=== PATIENT | male | born 1960 | race Caucasian/White ===

== ENCOUNTER → 2023-04-23 13:23 | Outpatient (REF) | payer MEDICARE, SELFPAY | LOC: MRI 3T 13:23 | PROVIDERS: ATTENDING PHYSICIAN Family Medicine; REFERRING PHYSICIAN Specialist | DX: R41.82 Altered mental status, unspecified (principal) | CPT/HCPCS: 70553; A9575 ==

== ENCOUNTER 2023-07-01 22:27 | Inpatient (IN) | payer MEDICARE, SELFPAY ==
[2023-07-01 17:06] VITALS: BP 156/94; BMI 31.0
--- NOTE | 2023-07-01 17:41 | EDRN ---
Crisis evaluated pt and pt denied SI. Pt does not need 1:1.
[2023-07-01 18:10] VITALS: BP 145/100
[2023-07-01] MEDS: DELTASONE 50 MG PO (19:20)
[2023-07-01] MEDS: DUONEB 3 ML INH ×3 (19:20→23:48)
[2023-07-01 20:01] VITALS: BP 155/90
[2023-07-01 20:20] LABS: % Basophils 0.6 % (0-2); % Eosinophils 1.1 % (0-6); % Immature Granulocytes 0.8 % (0-0.5); % Lymphocytes 18.7 % (20.5-51.1); % Monocytes 9.9 % (1.7-9.3); % Neutrophils 68.9 % (42.2-75.2); Absolute Basophils 0.1 10^3/uL (0-0.2); Absolute Eosinophils 0.1 10^3/uL (0-0.7); Absolute Immature Granulocytes 0.1 10^3/uL (0-0.05); Absolute Lymphocytes 1.5 10^3/uL (1.2-3.4); Absolute Monocytes 0.8 10^3/uL (0.1-0.6); Absolute Neutrophils 5.7 10^3/uL (1.4-6.5); Hematocrit 38.8 % (39.0-52.0); Hemoglobin 13.6 g/dL (13.0-18.0); Mean Corp Hgb Conc. 35.1 g/dL (33.0-37.0); Mean Corpuscular Hgb 29.5 pg (27.0-31.0); Mean Corpuscular Volume 84.2 fL (80.0-94.0); Mean Platelet Volume 9.3 fL (7.4-10.4); Nucleated Red Blood Cells % 0 % (-); Platelet Count 227 10^3/uL (130-400); Red Blood Cell Count 4.61 10^6/uL (4.70-6.10); Red Cell Dist. Width 13.8 % (11.5-14.5); White Blood Cell Count 8.3 10^3/uL (4.8-10.8)
--- NOTE | 2023-07-01 20:24 | ED.GENMED ---
History of Present Illness
General
Chief Complaint: Breathing Problem
Source: patient and spouse
Exam Limitations: none
Time Seen by Provider: 07/01/23 19:08
Nursing documentation reviewed up to this point in time: agreed with
Travel History
Have you had any contact with someone who has COVID-19?: No
Do you have any symptoms of coronavirus? Fever > 100 degrees, chills, cough, shortness of breath, sore throat, loss of taste or smell, muscle aches, or headache?: No
History of Present Illness
History of Present Illness:
62-year-old male with a past medical history of asthma, DERIAN on CPAP, hypertension, hyperlipidemia, anxiety/bipolar who presents to the emergency department for evaluation of shortness of breath. Patient reports that he has had gradual onset of
symptoms over the past 3 to 4 days consistent with prior asthma exacerbations; last night around 3 AM woke up with acutely worsening symptoms. Was using his albuterol very frequently throughout the day today but symptoms were continuing and
worsening which prompted trip to the emergency room. He has had associated nonproductive cough and significant wheezing. He says he has tightness in his chest but no chest pain. Has not had any swelling his legs. No GI symptoms. Denies any
other complaints. He reports identical prior asthma exacerbations. He says that pollen/allergies are common trigger.
Past History
Past History
ED Past Medical History: HTN, Hypercholesterolemia and Psychiatric (Bipolar disorder, ADHD, depression)
ED Past Surgical History: Orthopedic
Social History
Tobacco: Smoker (Patient states he smokes one or 2 cigarettes a week)
Alcohol: Occasional
Drug: None
Personal:
Living: with family
Employment: Employed
Family History
Family History: Other (Noncontributory)
Review of Systems
Review of Systems
All Other Systems: ROS reviewed and negative except as documented in HPI and ROS
Constitutional: Denies fever or chills
EENT: Denies sore throat or runny nose
Respiratory: Reports cough and trouble breathing
Cardiac: Denies chest pain, diaphoresis or palpitations
ABD/GI: Denies abdominal pain, nausea or vomiting
: Denies flank pain
Musculoskeletal: Denies neck pain or back pain
Neurological: Denies headache, weakness or numbness
Phy Exam
Physical Exam
Physical Exam:
General: Awake, alert; no acute distress
Head: Normocephalic, atraumatic
Eyes: Conjunctiva normal
Throat: Airway intact, handling secretions
Neck: Trachea midline, no JVD
Lungs: Patient is sitting upright, tachypneic; pulse ox mid 90s on room air; diffuse bilateral wheezing with prolonged expiration and diminished air movement; speaking in somewhat short sentences (3 to 4 words)
Heart: Regular rate and rhythm, no murmurs, gallops, or rubs
Abd: Soft, non distended, nontender
Neuro: Cranial nerves grossly intact, speech fluid
Skin: no rash
Extremities: No edema in extremities, warm and well-perfused
Scores
Heart Failure Risk
Heart Failure Risk Score: Not Applicable
Heart Score for Chest Pain Patients
STEMI patient?: Not applicable
Withdrawal Assessment of Alcohol
Withdrawal Assessment Completed?: Not applicable
Course
Orders/Labs/Results
Orders:
Orders
07/01/23 17:11
1:1 Observation - Suicide/ Violent Behavior As Directed
07/01/23 17:14
Crisis Consult Urgent
Reason for Consult: pt reports he is suicidal, plan to hang or shoot self
07/01/23 18:02
EKG [Electrocardiogram (*1)] Urgent
Reason for Study: Shortness of Breath
EKG- Treatment ONCE
07/01/23 19:14
Ipratropium/Albuterol Sulfate [Duoneb] 3 ml INH R NOW STA
Prednisone [Deltasone] 50 mg PO NOW STA
CR Chest - 2 Views Urgent
Comment:
Reason For Exam: sob
07/01/23 19:48
Peak Flow Rate [RESP] Urgent
Quantity: 1
07/01/23 20:08
COVID-19 Antigen Urgent
Source: Nasal Swab
Complete Blood Count/With Diff Urgent
Comprehensive Metabolic Panel Urgent
Influenza A+B Rapid Molecular Urgent
BRAULIO Source: Nasal Swab
Specimen Description:
07/01/23 20:23
Ipratropium/Albuterol Sulfate [Duoneb] 3 ml INH R NOW ONE
Abnormal Lab Results
07/01/23
20:08
RBC 4.61 L 10^6/uL
(4.70-6.10)
Hct 38.8 L %
(39.0-52.0)
Abs Immat Gran (auto) 0.1 H 10^3/uL
(0-0.05)
Absolute Monos (auto) 0.8 H 10^3/uL
(0.1-0.6)
Immature Gran % 0.8 H %
(0-0.5)
Lymphocytes % 18.7 L %
(20.5-51.1)
Monocytes % 9.9 H %
(1.7-9.3)
Sodium 133 L mmol/L
(135-145)
07/01/23 20:08
07/01/23 20:08
Vital Signs
Initial and Last Documented VS:
Initial Vital Signs
Temp Pulse Resp BP Pulse Ox
36.8 C 90 16 156/94 95
07/01/23 17:06 07/01/23 17:06 07/01/23 17:06 07/01/23 17:06 07/01/23 17:06
Last Documented Vital Signs
Temp Pulse Resp BP Pulse Ox
36.8 C 85 13 155/90 96
07/01/23 17:06 07/01/23 20:15 07/01/23 20:15 07/01/23 20:01 07/01/23 20:15
MDM/Problems Addressed
Differential Diagnosis Includes:
Acute asthma exacerbation, pneumonia, CHF, pneumothorax
MDM/Problems Addressed:
62-year-old male presents for evaluation of worsening shortness of breath over the past few days associated cough and chest tightness, wheezing�consistent with prior asthma exacerbations. Not improving with home albuterol. Hypertensive on arrival
with tachypnea but no hypoxia. Exam as above. Plan to place an IV send basic labs including a CBC and a CMP. Will dose with steroid and treat with DuoNeb. Will check a chest x-ray and EKG. Will monitor closely reassess after the above.
Clinical reassessment after DuoNeb and steroid patient is feeling much better and still has significant wheezing and prolonged expiration on lung auscultation. He is still sitting upright with mild tachypnea. Will check peak flow. Repeat DuoNeb.
Awaiting labs and chest x-ray.
Chest x-ray shows mild hyperinflation no pneumonia or pneumothorax. Initial labs reviewed and no clinically significant abnormalities.
After additional DuoNeb patient moving better air but still significant wheezing, still with mild tachypnea. Peak flow less than 50% expected based on age. Will plan admit for continued treatment of acute asthma exacerbation. Case discussed with
hospitalist for admission.
Chronic conditions affecting care:
Asthma
Acute Exacerbation and/or Progression of Chronic Illness:
Acutely hypertensive with no signs of hypertensive emergency�no indication for emergent antihypertensive therapy at present
*Radiology
Radiology exam reviewed: preliminary read by ED provider and radiology read reviewed
*Pulse Oximetry
Patient hypoxic: no
*EKG
Interpreted by ED Provider?: Yes
Heart Rate: 86
Rate: normal
Rhythm: sinus
[place]: normal axis
Interval: normal interval
QRS Pattern: normal QRS
Ischemia: non-specific ST changes
*Critical Care Note
Total Time (30-74mins, 75-104mins- exclusive of procedures): Not Applicable
Data Reviewed
Review of Other/Old Records Reveals: Labs and Records
Source: patient and records
Patient Management
Discussion with other providers: Hospitalist (Discussed with hospitalist for admission)
Escalation/DeEscalation of care consider admission/obs:
Admission indicated
ED Attending Note
-
Portions of this chart may have been created with voice recognition software.� Occasional wrong word or��sound alike� substitutions may have occurred due to the inherent limitations of voice recognition software.
Discharge Plan
Departure
Patient Disposition: Admit
Date of Disposition: 07/01/23
Time of Disposition: 21:26
Admit to doctor: Julian
Presentation/result/management discussed w/ accepting MD/DO: Hospitalist
Discharge Problem:
Acute asthma exacerbation
Prescriptions:
No Action
omeprazole 40 MG capsule,delayed release(DR/EC)
40 mg PO DAILY
venlafaxine 75 MG capsule,extended release 24hr
150 mg PO DAILY
olanzapine 15 MG tablet,disintegrating
15 mg PO QPM
albuterol sulfate 18 GM HFA aerosol inhaler
2 puff inhalation R Q4HPRN PRN (Reason: sob/wheezing) Qty: 0
amlodipine 5 MG tablet
5 mg PO DAILY Qty: 1 0RF
hydrochlorothiazide 25 MG tablet
25 mg PO DAILY Qty: 1 0RF
Rx Instructions:
Hold if systolic blood pressure <130
clonazepam 1 MG tablet
1 mg PO DAILY@1300
Patient Comments:
07/01/2023: last filled 06/19/23, 90 tabs for 30 days from [facility]
Epidiolex 1 UNIT solution
1 unit inhalation PRN PRN (Reason: Anxiety)
carvedilol 6.25 mg tablet
6.25 mg PO BID
venlafaxine 75 mg capsule,extended release 24hr
75 mg PO BID@1300,1900
atorvastatin 20 mg tablet
20 mg PO QPM
lamotrigine 200 mg tablet
200 mg PO BID
donepezil 5 mg tablet
5 mg PO DAILY
polyethylene glycol 3350 [Miralax] 17 gram Powder In Packet
11.38 g PO DAILY
Patient Comments:
07/01/2023: '2 teaspoons'
Benefiber (guar gum) Packet
0.66 tbsp PO DAILY
Patient Comments:
07/01/2023: '2 teaspoons'
montelukast 10 mg tablet
10 mg PO QPM
fluticasone propion-salmeterol 100-50 mcg/dose blister with device
1 inh INHALATION R BID
bupropion HCl 200 mg tablet sustained-release 12 hr
200 mg PO BID
aspirin 325 MG tablet
325 mg PO QPM
clonazepam 1 MG tablet
2 mg PO DAILY@1900
Patient Comments:
07/01/2023: last filled 06/19/23, 90 tabs for 30 days from [facility]
lisinopril 40 MG tablet
40 mg PO QPM
Rx Instructions:
Hold if systolic blood pressure <130
Referrals:
Anthony Suarez MD [Family Provider] -
Interventions
Interventions:
*Risk Screen - Suicide Last Done: 07/01/23 17:06
*Neglect/Abuse Screening Last Done: 07/01/23 17:06
ED- Fall Risk Assessment Last Done: 07/01/23 19:24
*ED COVID-19 Vaccine History Last Done: 07/01/23 17:06
ED- Cardiac Assessment Last Done: 07/01/23 19:24
ED- Pulmonary Assessment Last Done: 07/01/23 19:24
Discharge Date and Time
Print Language: FAROESE
[2023-07-01 20:33] LABS: ALT (SGPT) 26 U/L (0-50); AST (SGOT) 28 U/L (17-59); Albumin 4.6 g/dl (3.5-5.0); Alkaline Phosphatase 106 U/L (38-126); Blood Urea Nitrogen 12 mg/dl (9-20); Calcium 9.6 mg/dl (8.4-10.2); Carbon Dioxide 25 mmol/L (22-30); Chloride 101 mmol/L (98-107); Estimated Creatinine Clearance 117 ml/min; Glucose 94 mg/dl (70-99); Potassium 3.6 mmol/L (3.5-5.1); Sodium 133 mmol/L (135-145); Total Bilirubin 0.4 mg/dl (0.2-1.3); Total Protein 7.5 g/dl (6.3-8.2); eGFR > 60.00
[2023-07-01 20:41] LABS: COVID-19 Antigen Negative (Negative)
[2023-07-01 21:00] VITALS: BP 112/87
--- NOTE | 2023-07-01 21:31 | HPS.HSE ---
Family Physician
-
Family Physician: Anthony Suarez
Chief Complaint
-
shortness of breath
History of Present Illness
Mr. Karan Cortes is a 62 yo man with hx essential HTN, HLD, asthma, DERIAN on CPAP, obesity, anxiety/bipolar, former tobacco use/current marijuana use, LBBB presents to the ER with shortness of breath.
Patient states symptoms started yesterday evening, similar to prior exacerbations. + chest tightness and shortness of breath. He always has some degree of cough and mucus production, currently not worse than normal. No fevers. Received duonebs and
prednisone in the ER and currently stating he is feeling much better.
No nausea/vomiting. No diarrhea. No abdominal pain. No LE swelling. No rash.
Medical History
Past Medical History
Past Medical History: Reports Other ( HTN, HLD, asthma, DERIAN on CPAP, obesity, anxiety/bipolar, former tobacco use, LBBB)
Past Surgical History: Reports Other
Social History
Tobacco: Smoker (marijuana currently; former tobacco )
Alcohol: Occasional
Family History
Family History: Not pertinent
Allergies / Home Medications
Allergies reflects when Allergies were last updated in [facility].
Home Medications with original date entered in [facility]
Allergy/Medication List:
Allergies
Allergy/AdvReac Type Severity Reaction Status Date / Time
No Known Drug Allergies Allergy - Verified 07/01/23 17:05
environmental Allergy sinus Uncoded 07/01/23 17:05
congestion,
'lungs
swell'asthma
Home Medications
omeprazole 40 mg capsule,delayed release 40 mg PO DAILY 05/31/10
albuterol sulfate 90 mcg/actuation aerosol inhaler 2 puff inhalation R Q4HPRN PRN sob/wheezing ##0 03/22/19
olanzapine 15 mg disintegrating tablet 15 mg PO QPM 03/22/19
venlafaxine 75 mg capsule,extended release 24 hr 150 mg PO DAILY 03/22/19
amlodipine 5 mg tablet 5 mg PO DAILY ##1 04/08/19
hydrochlorothiazide 25 mg tablet 25 mg PO DAILY ##1 04/08/19
cannabidiol 100 mg/mL oral solution (Epidiolex) 1 unit inhalation PRN PRN Anxiety 09/06/20
clonazepam 1 mg tablet 1 mg PO DAILY@1300 09/06/20
aspirin 325 mg tablet 325 mg PO QPM 07/01/23
atorvastatin 20 mg tablet 20 mg PO QPM 07/01/23
bupropion HCl 200 mg tablet,12 hr sustained-release 200 mg PO BID 07/01/23
carvedilol 6.25 mg tablet 6.25 mg PO BID 07/01/23
clonazepam 1 mg tablet 2 mg PO DAILY@1900 07/01/23
donepezil 5 mg tablet 5 mg PO DAILY 07/01/23
fluticasone 100 mcg-salmeterol 50 mcg/dose blistr powdr for inhalation 1 inh inhalation R BID 07/01/23
guar gum 0.66 tbsp PO DAILY 07/01/23
lamotrigine 200 mg tablet 200 mg PO BID 07/01/23
lisinopril 40 mg tablet 40 mg PO QPM 07/01/23
montelukast 10 mg tablet 10 mg PO QPM 07/01/23
polyethylene glycol 3350 17 gram oral powder packet (Miralax) 11.38 g PO DAILY 07/01/23
venlafaxine 75 mg capsule,extended release 24 hr 75 mg PO BID@1300,1900 07/01/23
Review of Systems
-
History Source: Patient
A 12 point ROS was completed and negative except as noted: Yes
Physical Exam
Vital Signs
Vital Signs
Temp Pulse Resp BP Pulse Ox
98.2 F 81 15 112/87 95
07/01/23 17:06 07/01/23 21:15 07/01/23 21:15 07/01/23 21:00 07/01/23 21:15
Physical Exam
General: No Apparent Distress and Conversant
HEENT: PERRLA
Respiratory: Wheezes
Cardiac: S1/S2 and Regular Rhythm
GI: Soft and Non Tender
Musculoskeletal: No Edema
Skin: Warm and Dry; No Rash
Neuro: AO x 3
Psych: Calm
Laboratory Results
-
07/01/23 20:08
07/01/23 20:08
Laboratory Results
Total Bilirubin 0.4 mg/dl (0.2-1.3) 07/01/23 20:08
AST 28 U/L (17-59) 07/01/23 20:08
ALT 26 U/L (0-50) 07/01/23 20:08
Alkaline Phosphatase 106 U/L (38-126) 07/01/23 20:08
Data Reviewed
-
Diagnostic Radiology: Report Reviewed by me
Lab Data: Labs Reviewed by me
Impression/Plan
-
Mr. Karan Cortes is a 62 yo man with hx essential HTN, HLD, asthma, DERIAN on CPAP, obesity, anxiety/bipolar, tobacco use, LBBB presents to the ER with shortness of breath.
Triage VS: T 36.8C, P 90, RR 16, BP 156/94, SpO2 95%
LABS: WBC 8.3, Hg 13.6, PLT 227, Na 133, K+ 3.6, CO2 25, BUN 12, Cr 0.7, Glucose 94, liver enzymes WNL
Covid negative
Influenza negative
CXR
IMPRESSION:
No definite radiographic evidence of acute cardiopulmonary process. Mild hyperinflation.
MAR: duonebs 2 x; prednisone 50 x 1
Acute Asthma Exacerbation
-peak flow < 50% prediction, requires admission
-currently saturating well on room air and symptoms already improving post treatment in ER which is reassuring. patient does not appear tachypneic or in distress; noticeable wheezing on exam
-admit to tele
-continue MARKETING PROGRAMS SPECIALIST inhalers, MARKETING PROGRAMS SPECIALIST Montelukast
-standing duonebs and PRN
-IV Decadron
-peak flow q shift
Essential HTN
-hold MARKETING PROGRAMS SPECIALIST HCTZ while in-patient for mildly low Na 133
-continue MARKETING PROGRAMS SPECIALIST Lisinopril, Coreg, Amlodipine
Anxiety/Bipolar
-evaluated by Crisis in ER, no need for 1:1. Patient reports following closely with psychiatry and psychologist as outpatient
-MARKETING PROGRAMS SPECIALIST Wellbutrin, standing Clonazepam, amotrigine, Olanzapine, Venlafaxine
Former Tobacco Use
Current Marijuana use
-educated on importance of cessation for lung health
DVT PPx lovenox subQ
FULL CODE
[2023-07-01 23:16] VITALS: BP 127/74; BMI 30.9
--- NOTE | 2023-07-01 23:38 | PTCARENOTE ---
Received patient from ER, AAOx4. Patient unsteady when he stood up from the stretcher. Assist of 1 to his bed. Bed alarm placed d/t recent falls. Patient was evaluated by Crisis in ER, no need for 1:1. Patient reports following closely with
psychiatry and psychologist as outpatient. FOREST SUPERVISOR notified. Oriented to unit, plan of care continues.
[2023-07-02] VITALS (8 sets, daily range): BP systolic 125–148; BP diastolic 74–89; PULSE 80–83; O2SAT 94–97
[2023-07-02 07:17] LABS: Blood Urea Nitrogen 12 mg/dl (9-20); Calcium 10.3 mg/dl (8.4-10.2); Carbon Dioxide 27 mmol/L (22-30); Chloride 105 mmol/L (98-107); Estimated Creatinine Clearance 102 ml/min; Glucose 115 mg/dl (70-99); Magnesium 2.1 mg/dl (1.6-2.3); Potassium 4.6 mmol/L (3.5-5.1); Sodium 141 mmol/L (135-145); eGFR > 60.00
[2023-07-02] MEDS: ADVAIR HFA 45/21 MCG INHALER 2 PUFF INH ×2 (08:09→19:42)
[2023-07-02] MEDS: DUONEB 3 ML INH ×4 (08:09→19:42)
[2023-07-02] MEDS: NORVASC 5 MG PO (08:25)
[2023-07-02] MEDS: LAMICTAL 200 MG PO ×2 (08:26→20:07)
[2023-07-02] MEDS: COREG 6.25 MG PO ×2 (08:26→20:07)
[2023-07-02] MEDS: EFFEXOR XR 150 MG PO (08:26)
[2023-07-02] MEDS: PROTONIX 40 MG PO (08:26)
[2023-07-02] MEDS: DECADRON 4 MG IV ×3 (08:26→23:33)
[2023-07-02] MEDS: WELLBUTRIN SR (12 hour sustained release) 200 MG PO ×2 (09:08→20:08)
[2023-07-02] MEDS: ARICEPT 5 MG PO (09:08)
--- NOTE | 2023-07-02 09:27 | PTOTSP ---
pt currently demonstrates ability to complete simple ADLs, functional transfers, ambulation with supervision to no assistance. recommend home with assistance as needed upon d/c. no acute OT needs identified at this time, will sign off.
--- NOTE | 2023-07-02 09:40 | CM ---
Addendum entered by Kena Felipe 07/02/23 09:50:
Discussed history of mental illness with patient; reported that he sees his psychologist every 2 weeks; and sees him psychiatrist every 3 months. Reported that he has never acted on thoughts of suicide; declined offer to see a counselor during
hospital stay
Original Note:
Met with patient at bedside; initial assessment and case management consult completed
Pharmacy verified: [facility], [place], [place]
Patient lives in a one floor rancher with ; no steps to enter; bathroom has stall shower with grab bar, seat, raised toilet
PLOF: independent with ambulation and ADLs; does not drive; retired
DME: CPAP
SNF/Rehab/Home Health utilization history: none
Transportation: will provide ride home
Plan: Discharge to home when medically stable; no needs anticiptated
--- NOTE | 2023-07-02 10:23 | PTOTSP ---
Patient demonstrates safe and independent mobility, no skilled physical therapy needs at this time.
--- NOTE | 2023-07-02 11:08 | W.PN.HOSP.TC ---
Today's Communication/Plan
-
Pulm consult
Assessment / Plan
Assessment / Plan
Acute Asthma Exacerbation
-peak flow < 50% prediction, requires admission
-currently saturating well on room air and symptoms improving post treatment, but with active wheeze. patient does not appear tachypneic or in distress; noticeable wheezing on exam
-admit to tele
-continue FITTER'S ASSISTANT inhalers, FITTER'S ASSISTANT Montelukast
-standing duonebs and PRN
-IV Decadron 4 mg q8h
-peak flow q shift
Pt states he is not seeing a Shaper Set Up Operator and manages his own asthma
will consult Pulm
Essential HTN
-hold FITTER'S ASSISTANT HCTZ while in-patient for mildly low Na 133
-continue FITTER'S ASSISTANT Lisinopril, Coreg, Amlodipine
Anxiety/Bipolar
-evaluated by Crisis in ER, no need for 1:1. Patient reports following closely with psychiatry and psychologist as outpatient
-FITTER'S ASSISTANT Wellbutrin, standing Clonazepam, amotrigine, Olanzapine, Venlafaxine
Former Tobacco Use
Current Marijuana use
-educated on importance of cessation for lung health
DVT PPx lovenox subQ
FULL CODE
Anticipated Discharge: > 48 hours
Subjective/Interval History
-
Date of Service: July 02, 2023
Breathing much improved since admission
Objective Data
-
Labs:
Laboratory Results
07/02/23
06:16
Sodium 141 D
Potassium 4.6 D
Chloride 105
Carbon Dioxide 27
BUN 12
Creatinine 0.8
Glucose 115 H
Calcium 10.3 H
Vital Signs:
Vital Signs
Temp Pulse Resp BP Pulse Ox
98.7 F 85 18 127/89 94
07/02/23 07:40 07/02/23 08:25 07/02/23 08:10 07/02/23 08:25 07/02/23 08:30
Review of Systems
-
History Source: Patient and Coordinated Provider
Constitutional: Denies Fever
EENT: Reports No Symptoms Reported
Respiratory: Reports Cough and Trouble Breathing
Cardiac: Reports No Symptoms; Denies Chest Pain
Genitourinary: Reports No Symptoms
Physical Exam
-
General: Well Developed, Well Nourished and No Apparent Distress
HEENT: Normocephalic, Atraumatic and Moist Mucous Membranes
Respiratory: Wheezes (holoexpiratory high freq wheeze with end expiratory accenuation and coughing spasm on end expiration)
Cardiac: Regular Rhythm and S1/S2
GI: Soft, Nontender and Nondistended
Musculoskeletal: No Clubbing, No Cyanosis and No Edema
Neuro: Awake, Alert and Oriented
[2023-07-02] MEDS: EFFEXOR XR 75 MG PO ×2 (12:45→19:29)
[2023-07-02] MEDS: KLONOPIN 1 MG PO (12:45)
--- NOTE | 2023-07-02 15:22 | CON.PUL ---
Consultation
Consultation Request
Date/Time Consultation Requested: 07/01
Date/Time Consultation Performed: 07/01
Reason for Consultation: Asthma exacerbation
Medical History
-
History of Present Illness:
History obtained from patient, inpatient and outpatient records, ED visit. Patient is a 62-year-old male with history of asthma, sleep apnea, nonischemic cardiomyopathy who was in his usual state of health when he developed shortness of breath at
around 3:30 in the morning. He states that this sometimes happens with his asthma in the past and tends to be upon lying down or in the middle of the night. He felt that this flareup was different and requested ED evaluation. Upon arrival to
[facility], afebrile, pulse 90, breathing at 16, blood pressure 156/94, 95%. ED records suggest worsening symptoms over the past few days although patient states he woke up suddenly at 3:30 in the morning with symptoms. Patient received
nebulized therapy and steroids. Chest x-ray unremarkable. Peak flow less than 50%. Patient admitted for asthma exacerbation
.
PMH: Asthma, sleep apnea on CPAP, hypertension, bipolar disorder, history of rectal bleeding, GERD. History of left shoulder replacement 2018, bunion surgery, left rotator cuff 2020
Past Medical History
Past Medical History: None (See above)
Past Surgical History: None ( see above)
Social History
Tobacco: Non-smoker
Alcohol: Daily (3 drinks a day between beer and cocktails)
Drug: Marijuana (Daily marijuana use)
Personal:
Living: With Family
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
Family History
Family History: Other (Father age 65 from heart disease/[place], mother at age 81. 2 sisters, coronary disease. Children are healthy)
Allergies / Home Medications
Allergies
Allergy/AdvReac Type Severity Reaction Status Date / Time
No Known Drug Allergies Allergy - Verified 07/01/23 17:05
environmental Allergy sinus Uncoded 07/01/23 17:05
congestion,
'lungs
swell'asthma
Home Medications
�Medication �Instructions �Recorded �Confirmed �Last Taken �Type
omeprazole 40 mg capsule,delayed 40 mg PO DAILY Gastrointestinal 05/31/10 07/01/23 07/01/23 History
release Issue
albuterol sulfate 90 mcg/actuation 2 puff inhalation R Q4HPRN PRN 03/22/19 07/01/23 04/07/19 17:30 History
aerosol inhaler sob/wheezing ##0
olanzapine 15 mg disintegrating 15 mg PO QPM bipolar depression 03/22/19 07/01/23 07/01/23 History
tablet
venlafaxine 75 mg capsule,extended 150 mg PO DAILY depression 03/22/19 07/01/23 07/01/23 History
release 24 hr
amlodipine 5 mg tablet 5 mg PO DAILY ##1 04/08/19 07/01/23 07/01/23 Rx
cannabidiol 100 mg/mL oral 1 unit inhalation PRN PRN Anxiety 09/06/20 07/01/23 09/06/20 History
solution (Epidiolex)
clonazepam 1 mg tablet 1 mg PO DAILY@1300 anxiety 09/06/20 07/01/23 07/01/23 History
aspirin 325 mg tablet 325 mg PO QPM Blood Clot 07/01/23 07/01/23 07/01/23 History
Prevention/Tx
atorvastatin 20 mg tablet 20 mg PO QPM High Cholesterol 07/01/23 07/01/23 07/01/23 History
bupropion HCl 200 mg tablet,12 hr 200 mg PO BID Depression/Anxiety 07/01/23 07/01/23 07/01/23 History
sustained-release
carvedilol 6.25 mg tablet 6.25 mg PO BID Blood Pressure 07/01/23 07/01/23 07/01/23 History
clonazepam 1 mg tablet 2 mg PO DAILY@1900 anxiety 07/01/23 07/01/23 07/01/23 History
donepezil 5 mg tablet 5 mg PO DAILY cognition/memory 07/01/23 07/01/23 07/01/23 History
fluticasone 100 mcg-salmeterol 50 1 inh inhalation R BID Allergies 07/01/23 07/01/23 07/01/23 History
mcg/dose blistr powdr for
inhalation
guar gum 0.66 tbsp PO DAILY Constipation 07/01/23 07/01/23 07/01/23 History
lamotrigine 200 mg tablet 200 mg PO BID depression 07/01/23 07/01/23 07/01/23 History
lisinopril 40 mg tablet 40 mg PO QPM Blood Pressure 07/01/23 07/01/23 07/01/23 History
montelukast 10 mg tablet 10 mg PO QPM Lung/Breathing Issues 07/01/23 07/01/23 07/01/23 History
polyethylene glycol 3350 17 gram 11.38 g PO DAILY Constipation 07/01/23 07/01/23 07/01/23 History
oral powder packet (Miralax)
venlafaxine 75 mg capsule,extended 75 mg PO BID@1300,1900 depression 07/01/23 07/01/23 07/01/23 History
release 24 hr
hydrochlorothiazide 25 mg tablet 25 mg PO DAILY Fluid 07/02/23 07/01/23 07/01/23 History
Retention/Swelling/blood pressure
Review of Systems
-
All other systems: Negative unless noted
Vitals / Labs / Diagnostic Testing
Vital Signs
Temp Pulse Resp BP Pulse Ox
97.8 F 80 16 127/83 94
07/02/23 11:32 07/02/23 11:41 07/02/23 11:41 07/02/23 11:32 07/02/23 11:38
Lab Data
07/01/23 20:08
07/02/23 06:16
Microbiology
07/01/23 20:08 Nasal Swab Influenza Types A & B (LORAINE) - Final
Negative for Influenza A & B, NAAT
Negative results must be combined with clinical observations
and patient history.
Nucleic Acid Amplification test (NAAT)performed on the
[employer] platform.
Diagnostic Testing:
Physical Exam
-
HEENT: Normocephalic and Anicteric
Cardiovascular: S1/S2, Regular Rhythm, Murmur (n) and Rub (n)
Respiratory: Wheeze (Mild wheezing), Rales (n), Rhonchi (n) and Non-Labored Respirations
GI: Soft, Non Distended and Non Tender
Neurology: Awake, Alert, Oriented and No Motor Deficits (Able to sit up without assistance)
Skin: Good Color
General: Comfortable
Assessment
-
62-year-old male with history of asthma, sleep apnea on nocturnal CPAP, daily marijuana use, presents with acute shortness of breath. Patient describes paroxysmal nocturnal dyspnea. In ED, found to have significant wheezing, normal chest x-ray,
peak flow less than 50%. Patient given nebulizer, steroids and admitted for asthma exacerbation 07/02/2023
Acute asthma exacerbation
Peak flow less than 50%
Paroxysmal nocturnal dyspnea
GERD
Moderate alcohol use, 3 drinks a day
Conditions present prior to admission
Hypertension
Cardiomyopathy, EF 45%
Sleep apnea on CPAP therapy
8 cm of water
Desaturation summer 82%
Bipolar disorder
Daily marijuana use
Tobacco use history
Mild nodular disease per low-dose CT June 2022 (my review)
Plan/recommendations
At this time, patient appears to be improved although on exam, poor air movement with scattered wheezes
Peak flow noted to be less than 50% in ED
Chest x-ray is unremarkable
Moving forward
Continue with current treatment regimen. Nocturnal symptoms are somewhat concerning
No obvious triggers at home
Daily marijuana use noted
Reviewed outpatient PFT, normal FEV1
Continue with IV steroids, Advair, nebulizer, Singulair
Continue with empiric GERD therapy, remains on Protonix
Will check bedside spirometry 07/02
Anticipate discharge in the next 24 to 48 hours depending on how he is doing, with close pulmonary follow-up as outpatient
With plan for empiric discharge on GERD therapy
Patient continues with CPAP therapy with 8 cm of water, remains compliant
Follows up in the sleep clinic
Also reviewed his CT imaging from June 2022. There may be some nodular disease although it likely is. Bronchial thickening and inflammatory changes in the left lower lobe per my review
He is due for repeat low-dose lung cancer screening July 2023
Discussed importance of discontinuing marijuana use
Also discussed importance of cutting down on alcohol use
Will follow
[2023-07-02] MEDS: ZESTRIL 40 MG PO (17:26)
[2023-07-02] MEDS: ASPIRIN 325 MG PO (17:26)
[2023-07-02] MEDS: LIPITOR 20 MG PO (17:26)
[2023-07-02] MEDS: SINGULAIR 10 MG PO (17:26)
[2023-07-02] MEDS: ZYPREXA ZYDIS (ORALLY DISINTEGRATING) 15 MG PO (17:27)
[2023-07-02] MEDS: LOVENOX SC (17:27)
[2023-07-02] MEDS: KLONOPIN 2 MG PO (19:29)
[2023-07-03 03:23] VITALS: BP 141/90
[2023-07-03 07:26] VITALS: BP 152/89
[2023-07-03] MEDS: DUONEB 3 ML INH ×4 (08:11→20:34)
[2023-07-03] MEDS: ADVAIR HFA 45/21 MCG INHALER 2 PUFF INH ×2 (08:11→20:35)
[2023-07-03] MEDS: COREG 6.25 MG PO ×2 (08:15→20:39)
[2023-07-03] MEDS: NORVASC 5 MG PO (08:15)
[2023-07-03] MEDS: PROTONIX 40 MG PO (08:15)
[2023-07-03] MEDS: WELLBUTRIN SR (12 hour sustained release) 200 MG PO ×2 (08:16→20:39)
[2023-07-03] MEDS: EFFEXOR XR 150 MG PO (08:17)
[2023-07-03] MEDS: LAMICTAL 200 MG PO ×2 (08:18→20:40)
[2023-07-03] MEDS: ARICEPT 5 MG PO (08:18)
[2023-07-03] MEDS: DECADRON 4 MG IV ×3 (08:18→23:28)
--- NOTE | 2023-07-03 10:06 | W.PN.HOSP.TC ---
Today's Communication/Plan
-
continue Decadron 4 mg IV q8h
recheck BMP off HCTZ and on Decadron
Assessment / Plan
Assessment / Plan
Acute Asthma Exacerbation
-peak flow < 50% prediction, requires admission
-currently saturating well on room air and symptoms improving post treatment, but with active wheeze. patient does not appear tachypneic or in distress; noticeable wheezing on exam
-admit to tele
-continue POLISHER SAND inhalers, POLISHER SAND Montelukast
-standing duonebs and PRN
-IV Decadron 4 mg q8h
-peak flow q shift
5/3 250 (predicted 500)
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
appreciate consult Pulm
SaO2 96% on room air at rest
Essential HTN
-hold POLISHER SAND HCTZ while in-patient for mildly low Na 133
-continue POLISHER SAND Lisinopril, Coreg, Amlodipine
Anxiety/Bipolar
-evaluated by Crisis in ER, no need for 1:1. Patient reports following closely with psychiatry and psychologist as outpatient
-POLISHER SAND Wellbutrin, standing Clonazepam, amotrigine, Olanzapine, Venlafaxine
Former Tobacco Use
Current Marijuana use
-educated on importance of cessation for lung health
DVT PPx lovenox subQ
FULL CODE
Will defer timing of begin wean off steroids to pulm, though probably 24 hrs would recheck pt at current dose prior to weaning
Anticipated Discharge: > 48 hours
Subjective/Interval History
-
Date of Service: July 03, 2023
Breathing continues to improve
Objective Data
-
Vital Signs:
Vital Signs
Temp Pulse Resp BP Pulse Ox
97.9 F 95 16 141/90 96
07/03/23 07:26 07/03/23 08:47 07/03/23 08:47 07/03/23 03:23 07/03/23 08:47
I&O
07/02/23 07/03/23 07/04/23
06:59 06:59 06:59
Intake Total 520 / 520
Balance 520 / 520
Review of Systems
-
History Source: Patient and Coordinated Provider
Constitutional: Denies Fever
EENT: Reports No Symptoms Reported
Respiratory: Reports Cough and Trouble Breathing (progressively improving)
Cardiac: Reports No Symptoms; Denies Chest Pain
Genitourinary: Reports No Symptoms
Physical Exam
-
General: Well Developed, Well Nourished and No Apparent Distress
HEENT: Normocephalic, Atraumatic and Moist Mucous Membranes
Respiratory: Wheezes (improved air movement, but still with holoexpiratory high freq wheeze with end expiratory accenuation, though coughing spasm on end expiration appears to have resolved)
Cardiac: Regular Rhythm and S1/S2
GI: Soft, Nontender and Nondistended
Musculoskeletal: No Clubbing, No Cyanosis and No Edema
Neuro: Awake, Alert and Oriented
[2023-07-03 11:16] VITALS: BP 146/82
--- NOTE | 2023-07-03 11:24 | PN.CDI ---
CDI
- -
CDI:
Physician Documentation Request
Admit Date: 07/01/23 22:27
Dear Doctor
Please review the following and provide your response in the progress notes.
Clinical Indicators:
Pt admitted with Acute asthma exacerbation
[facility] consult ,' Acute asthma exacerbation Peak flow less than 50%...Mild nodular disease per low-dose CT June 2022 (my review)...'
Based on the above, could you clarify, in your progress note, further specificity regarding the type of asthma:
Type:
Mild intermittent - less than 2x/week
Mild persistent - more than 2x/week but not daily
Moderate persistent - daily and may restrict physical activity
Severe persistent - throughout the day with frequent attacks, limiting activities
Other - please specify
Use of terms such as suspected, likely, concern for, or probable (associated with a specific diagnosis that is being evaluated, monitored, or treated as if it exists) are acceptable and can be coded in the inpatient setting, when documented at the
time of discharge.
Thank you,
Sindy Sherman RN
CDI Specialist
[facility]
Please use your independent medical judgment in providing your response.
[2023-07-03] MEDS: KLONOPIN 1 MG PO (12:13)
[2023-07-03] MEDS: EFFEXOR XR 75 MG PO ×2 (12:14→20:39)
[2023-07-03 15:15] VITALS: BP 150/92
--- NOTE | 2023-07-03 15:15 | CM ---
Patient seen bedside, reports no needs to CM at this time. Patient reports his was visiting earlier and will be back later on. Patient reports he has a good support system. CM will continue to follow for all discharge planning needs.
Plan; home no needs anticipated.
--- NOTE | 2023-07-03 16:12 | W.PN.PUL3 ---
Addendum entered and electronically signed by Starr Villavicencio MD 07/03/23 16:32:
Mild intermittent asthma
Original Note:
Today's Communication / Plan
-
Still with significant wheezing
No change in steroid dosing, no change in regimen
GERD therapy
Will require slow taper of prednisone and evaluation of the pulmonary office prior to tapering off
Assessment
-
62-year-old male with history of asthma, sleep apnea on nocturnal CPAP, daily marijuana use, presents with acute shortness of breath. Patient describes paroxysmal nocturnal dyspnea. In ED, found to have significant wheezing, normal chest x-ray,
peak flow less than 50%. Patient given nebulizer, steroids and admitted for asthma exacerbation 07/02/2023
Acute asthma exacerbation
Peak flow less than 50%
FEV1 1.61/51%, per spirometry
Paroxysmal nocturnal dyspnea
GERD
Moderate alcohol use, 3 drinks a day
Conditions present prior to admission
Hypertension
Cardiomyopathy, EF 45%
Sleep apnea on CPAP therapy
8 cm of water
Desaturation summer 82%
Bipolar disorder
Daily marijuana use
Tobacco use history
Mild nodular disease per low-dose CT June 2022 (my review)
Plan/recommendations
At this time, patient appears to be improved although on exam, poor air movement with scattered wheezes
Peak flow noted to be less than 50% in ED
Spirometry noted, FEV1 52%
Chest x-ray is unremarkable
Persistent wheeze on today's exam noted
Moving forward
Continue with current treatment regimen. Nocturnal symptoms are somewhat concerning
No obvious triggers at home
Daily marijuana use noted. Reviewed absolute importance of discontinuing any inhaled products, including marijuana
Continue with IV steroids, Advair, nebulizer, Singulair
No change in steroids at this time
Continue with empiric GERD therapy, remains on Protonix
With plan for empiric discharge on GERD therapy
Patient continues with CPAP therapy with 8 cm of water, remains compliant
Follows up in the sleep clinic
Also reviewed his CT imaging from June 2022. There may be some nodular disease although it likely is. Bronchial thickening and inflammatory changes in the left lower lobe per my review
He is due for repeat low-dose lung cancer screening July 2023
Discussed importance of discontinuing marijuana use
Also discussed importance of cutting down on alcohol use
Not ready for discharge
Subjective Data
-
Date of Service:
Date of Service: July 03, 2023
Subjective:
Patient feeling more wheezy today. Has mild cough, no hemoptysis. Denies chest pain, nausea, heartburn. Ambulating to bathroom without significant limitations
Objective Data
Data Reviewed
Vital Signs / I&O / Oxygen:
Vital Signs
Temp Pulse Resp BP Pulse Ox
98.0 F 80 16 150/92 96
07/03/23 15:15 07/03/23 15:15 07/03/23 15:15 07/03/23 15:15 07/03/23 15:15
Intake and Output
07/02/23 07/03/23 07/04/23
06:59 06:59 06:59
Intake Total 520 / 520
Balance 520 / 520
SaO2 96
Physical Exam
General: Comfortable
HEENT: Normocephalic, Anicteric and Other (Large neck)
Cardiovascular: S1-S2, Regular Rhythm, Murmur (n), Rub (n) and Peripheral Edema (n)
Respiratory: Wheeze (Scattered diffuse), Crackles (n), Rhonchi (n) and Non-Labored Respirations
GI: Soft, Non Distended and Non Tender
Neurology: Awake, Alert and No Motor Deficits (Able to sit up without assistance)
Skin: Cyanosis (n), Jaundice (n) and Rash (n)
Labs/Micro/Reports
Lab Data
07/01/23 20:08
07/02/23 06:16
Microbiology
07/01/23 20:08 Nasal Swab Influenza Types A & B (LORAINE) - Final
Negative for Influenza A & B, NAAT
Negative results must be combined with clinical observations
and patient history.
Nucleic Acid Amplification test (NAAT)performed on the
[employer] platform.
[2023-07-03] MEDS: ASPIRIN 325 MG PO (17:50)
[2023-07-03] MEDS: ZESTRIL 40 MG PO (17:50)
[2023-07-03] MEDS: LOVENOX SC (17:50)
[2023-07-03] MEDS: LIPITOR 20 MG PO (17:50)
[2023-07-03] MEDS: SINGULAIR 10 MG PO (17:50)
[2023-07-03] MEDS: LOVENOX 40 MG SC (17:53)
[2023-07-03 19:38] VITALS: BP 134/71
[2023-07-03] MEDS: KLONOPIN 2 MG PO (20:39)
[2023-07-03] MEDS: ZYPREXA ZYDIS (ORALLY DISINTEGRATING) 15 MG PO (21:51)
[2023-07-03 22:38] LABS: Glucose - Point of Care 134 mg/dl (70-99)
[2023-07-03 23:57] VITALS: BP 128/93
[2023-07-04 03:29] VITALS: BP 133/85
[2023-07-04 06:25] LABS: % Basophils 0.2 % (0-2); % Immature Granulocytes 0.4 % (0-0.5); % Lymphocytes 15.3 % (20.5-51.1); % Monocytes 4.7 % (1.7-9.3); % Neutrophils 79.4 % (42.2-75.2); Absolute Immature Granulocytes 0.1 10^3/uL (0-0.05); Absolute Lymphocytes 1.8 10^3/uL (1.2-3.4); Absolute Monocytes 0.6 10^3/uL (0.1-0.6); Absolute Neutrophils 9.3 10^3/uL (1.4-6.5); Hematocrit 41.8 % (39.0-52.0); Hemoglobin 14.1 g/dL (13.0-18.0); Mean Corp Hgb Conc. 33.7 g/dL (33.0-37.0); Mean Corpuscular Hgb 29.3 pg (27.0-31.0); Mean Corpuscular Volume 86.9 fL (80.0-94.0); Mean Platelet Volume 9.3 fL (7.4-10.4); Nucleated Red Blood Cells % 0 % (-); Platelet Count 266 10^3/uL (130-400); Red Blood Cell Count 4.81 10^6/uL (4.70-6.10); Red Cell Dist. Width 13.8 % (11.5-14.5); White Blood Cell Count 11.7 10^3/uL (4.8-10.8)
[2023-07-04 06:57] LABS: Blood Urea Nitrogen 20 mg/dl (9-20); Calcium 10.5 mg/dl (8.4-10.2); Carbon Dioxide 25 mmol/L (22-30); Chloride 105 mmol/L (98-107); Estimated Creatinine Clearance 91 ml/min; Glucose 134 mg/dl (70-99); Potassium 4.4 mmol/L (3.5-5.1); Sodium 140 mmol/L (135-145); eGFR > 60.00
[2023-07-04 07:13] VITALS: BP 115/64
[2023-07-04] MEDS: DUONEB 3 ML INH ×4 (07:46→20:22)
[2023-07-04] MEDS: ADVAIR HFA 45/21 MCG INHALER 2 PUFF INH ×2 (07:46→20:22)
[2023-07-04] MEDS: PROTONIX 40 MG PO (08:25)
[2023-07-04] MEDS: LAMICTAL 200 MG PO ×2 (08:25→20:50)
[2023-07-04] MEDS: WELLBUTRIN SR (12 hour sustained release) 200 MG PO ×2 (08:26→20:50)
[2023-07-04] MEDS: ARICEPT 5 MG PO (08:26)
[2023-07-04] MEDS: EFFEXOR XR 150 MG PO (08:26)
[2023-07-04] MEDS: COREG 6.25 MG PO ×2 (08:26→21:38)
[2023-07-04] MEDS: NORVASC 5 MG PO (08:27)
[2023-07-04] MEDS: DECADRON 4 MG IV ×2 (08:27→15:17)
[2023-07-04 11:47] VITALS: BP 142/86
[2023-07-04] MEDS: EFFEXOR XR 75 MG PO ×2 (12:27→18:05)
[2023-07-04] MEDS: KLONOPIN 1 MG PO (12:28)
--- NOTE | 2023-07-04 14:41 | W.PN.HOSP.TC ---
Addendum entered and electronically signed by Jose M Nuñez MD 07/04/23 14:49:
will add low dose Doxycycline in case there is a low level infectious component
Original Note:
Today's Communication/Plan
-
with marked improvement, will begin to cautiously taper steroids
Assessment / Plan
Assessment / Plan
Acute Asthma Exacerbation
-peak flow < 50% prediction, requires admission
-currently saturating well on room air and symptoms improving post treatment, but with active wheeze. patient does not appear tachypneic or in distress; noticeable wheezing on exam
-admit to tele
-continue [employer] inhalers, [employer] Montelukast
-standing duonebs and PRN
-IV Decadron 4 mg q8h
Pt states he is not seeing a Engineering Illustrator and manages his own asthma, but does go to Dr Harmon for his DERIAN
appreciate consult Pulm
SaO2 96% on room air at rest
Essential HTN
-hold [employer] TR[employer]ER HCTZ while in-patient for mildly low Na 133
-continue [employer] Lisinopril, Coreg, Amlodipine
Anxiety/Bipolar
-evaluated by Crisis in ER, no need for 1:1. Patient reports following closely with psychiatry and psychologist as outpatient
-[employer] TR[employer]ER Wellbutrin, standing Clonazepam, amotrigine, Olanzapine, Venlafaxine
Former Tobacco Use
Current Marijuana use
-educated on importance of cessation for lung health
DVT PPx lovenox subQ
FULL CODE
present and is supplying significant information
Anticipated Discharge: 24 - 48 hours
Subjective/Interval History
-
Date of Service: July 04, 2023
Breathing better, overall looks better
Objective Data
-
Labs:
Laboratory Results
07/04/23
06:03
WBC 11.7 H
Hgb 14.1
Hct 41.8
Plt Count 266
Sodium 140
Potassium 4.4
Chloride 105
Carbon Dioxide 25
BUN 20
Creatinine 0.9
Glucose 134 H
Calcium 10.5 H
Vital Signs:
Vital Signs
Temp Pulse Resp BP Pulse Ox
97.7 F 78 16 142/86 93
07/04/23 11:47 07/04/23 11:47 07/04/23 11:47 07/04/23 11:47 07/04/23 11:47
I&O
07/03/23 07/04/23 07/05/23
06:59 06:59 06:59
Intake Total 520 / 520 480 / 480
Output Total 0 / 0
Balance 520 / 520 480 / 480
Review of Systems
-
History Source: Patient and Coordinated Provider
Constitutional: Denies Fever
EENT: Reports No Symptoms Reported
Respiratory: Reports Cough and Trouble Breathing (progressively improving)
Cardiac: Reports No Symptoms; Denies Chest Pain
Genitourinary: Reports No Symptoms
Physical Exam
-
General: Well Developed, Well Nourished and No Apparent Distress
HEENT: Normocephalic, Atraumatic and Moist Mucous Membranes
Respiratory: Wheezes (markedly improved, taking much deeper breaths, improved air movement )
Cardiac: Regular Rhythm and S1/S2
GI: Soft, Nontender and Nondistended
Musculoskeletal: No Clubbing, No Cyanosis and No Edema
Neuro: Awake, Alert and Oriented
[2023-07-04 15:07] VITALS: BP 154/84
[2023-07-04] MEDS: VIBRAMYCIN 100 MG PO ×2 (15:17→20:50)
[2023-07-04] MEDS: LOVENOX 40 MG SC (17:10)
[2023-07-04] MEDS: ZYPREXA ZYDIS (ORALLY DISINTEGRATING) 15 MG PO (17:10)
[2023-07-04] MEDS: ZESTRIL 40 MG PO (17:10)
[2023-07-04] MEDS: LIPITOR 20 MG PO (17:10)
[2023-07-04] MEDS: ASPIRIN 325 MG PO (17:10)
[2023-07-04] MEDS: SINGULAIR 10 MG PO (17:10)
--- NOTE | 2023-07-04 17:32 | W.PN.PUL3 ---
Today's Communication / Plan
-
Continue current corticosteroids, taper tomorrow.
Continue nebulizer
Not ready for discharge, hopefully next 24-48
Assessment
-
62-year-old male with history of asthma, sleep apnea on nocturnal CPAP, daily marijuana use, presents with acute shortness of breath. Patient describes paroxysmal nocturnal dyspnea. In ED, found to have significant wheezing, normal chest x-ray,
peak flow less than 50%. Patient given nebulizer, steroids and admitted for asthma exacerbation 07/02/2023
Acute asthma exacerbation
Peak flow less than 50%
FEV1 1.61/51%, per spirometry
Paroxysmal nocturnal dyspnea
GERD
Moderate alcohol use, 3 drinks a day
Conditions present prior to admission
Hypertension
Cardiomyopathy, EF 45%
Sleep apnea on CPAP therapy
8 cm of water
Desaturation summer 82%
Bipolar disorder
Daily marijuana use
Tobacco use history
Mild nodular disease per low-dose CT June 2022 (my review)
Plan/recommendations
Continues to have bronchospasm. Better air movement. Feels better but still short of breath.
Peak flow noted to be less than 50% in ED
Spirometry noted, FEV1 52%
Chest x-ray is unremarkable
-
Continue with current treatment regimen. Nocturnal symptoms are somewhat concerning
No obvious triggers at home
Daily marijuana use noted. Reviewed absolute importance of discontinuing any inhaled products, including marijuana
Continue with IV steroids, Advair, nebulizer, Singulair
Continue IV corticosteroids without change for today. Taper tomorrow.
Continue with empiric GERD therapy, remains on Protonix
With plan for empiric discharge on GERD therapy
Doxycycline added per primary team. 5-day course will be enough as the x-ray showed no evidence for pneumonia.
Patient continues with CPAP therapy with 8 cm of water, remains compliant
Follows up in the sleep clinic
Also reviewed his CT imaging from June 2022. There may be some nodular disease although it likely is. Bronchial thickening and inflammatory changes in the left lower lobe per my review
He is due for repeat low-dose lung cancer screening July 2023
Discussed importance of discontinuing marijuana use
Also discussed importance of cutting down on alcohol use
Not ready for discharge, hopefully in the next 24-48 hours.
Subjective Data
-
Date of Service:
Date of Service: July 04, 2023
Chief Complaint: Pulmonary Follow Up (Acute asthma exacerbation)
Subjective:
Continues to have some coughing
Intermittent wheezing
Review of Systems
General: Fever (n)
Cardiopulmonary: Dyspnea (n)
GI: Abdominal Pain (n) and Nausea (n)
Neuro: Headache (n)
Objective Data
Data Reviewed
Vital Signs / I&O / Oxygen:
Vital Signs
Temp Pulse Resp BP Pulse Ox
98.0 F 72 18 154/84 95
07/04/23 15:07 07/04/23 15:45 07/04/23 15:45 07/04/23 15:07 07/04/23 15:45
Intake and Output
07/03/23 07/04/23 07/05/23
06:59 06:59 06:59
Intake Total 520 / 520 480 / 480
Output Total 0 / 0
Balance 520 / 520 480 / 480
SaO2 95
Physical Exam
General: Comfortable
HEENT: Normocephalic, Anicteric and Other (Large neck)
Cardiovascular: S1-S2, Regular Rhythm, Murmur (n), Rub (n) and Peripheral Edema (n)
Respiratory: Wheeze (Scattered diffuse), Crackles (n), Rhonchi (n) and Non-Labored Respirations
GI: Soft, Non Distended and Non Tender
Neurology: Awake, Alert and No Motor Deficits (Able to sit up without assistance)
Skin: Cyanosis (n), Jaundice (n) and Rash (n)
Labs/Micro/Reports
Lab Data
07/04/23 06:03
07/04/23 06:03
Microbiology
07/01/23 20:08 Nasal Swab Influenza Types A & B (LORAINE) - Final
Negative for Influenza A & B, NAAT
Negative results must be combined with clinical observations
and patient history.
Nucleic Acid Amplification test (NAAT)performed on the
[employer] platform.
[2023-07-04] MEDS: KLONOPIN 2 MG PO (18:05)
[2023-07-04 23:50] VITALS: BP 115/74
[2023-07-05] MEDS: ADVAIR HFA 45/21 MCG INHALER 2 PUFF INH (06:26)
[2023-07-05] MEDS: DUONEB 3 ML INH ×2 (06:26→11:25)
[2023-07-05 07:00] VITALS: BP 138/83
[2023-07-05] MEDS: COREG 6.25 MG PO (08:27)
[2023-07-05] MEDS: DELTASONE 40 MG PO (08:27)
[2023-07-05] MEDS: PROTONIX 40 MG PO (08:27)
[2023-07-05] MEDS: VIBRAMYCIN 100 MG PO (08:27)
[2023-07-05] MEDS: LAMICTAL 200 MG PO (08:27)
[2023-07-05] MEDS: ARICEPT 5 MG PO (08:27)
[2023-07-05] MEDS: EFFEXOR XR 150 MG PO (08:28)
[2023-07-05] MEDS: WELLBUTRIN SR (12 hour sustained release) 200 MG PO (08:28)
[2023-07-05] MEDS: NORVASC 5 MG PO (08:28)
--- NOTE | 2023-07-05 12:22 | W.PN.HOSP.TC ---
Today's Communication/Plan
-
dc to home
Assessment / Plan
Assessment / Plan
Acute Asthma Exacerbation
-peak flow < 50% prediction, requires admission
-currently saturating well on room air and symptoms improving post treatment, but with active wheeze. patient does not appear tachypneic or in distress; noticeable wheezing on exam
-admit to tele
-continue OPTIMIZATION MANAGER inhalers, OPTIMIZATION MANAGER Montelukast
-standing duonebs and PRN
-IV Decadron 4 mg q8h now changed to oral Prednisone with continued improvement
Pt states he is not seeing a Passenger Representative and manages his own asthma, but does go to Dr Harmon for his DERIAN
appreciate consult Pulm
SaO2 96% on room air at rest
Essential HTN
-hold OPTIMIZATION MANAGER HCTZ while in-patient for mildly low Na 133
-continue OPTIMIZATION MANAGER Lisinopril, Coreg, Amlodipine
Anxiety/Bipolar
-evaluated by Crisis in ER, no need for 1:1. Patient reports following closely with psychiatry and psychologist as outpatient
-OPTIMIZATION MANAGER Wellbutrin, standing Clonazepam, amotrigine, Olanzapine, Venlafaxine
Former Tobacco Use
Current Marijuana use
-educated on importance of cessation for lung health
DVT PPx lovenox subQ
FULL CODE
present and is supplying significant information, states he is not on Epidiolex, will remove from list
dc now
More than 30 minutes spent in discharge including
Final examination of the patient
Summarizing hospital stay
Instructions for continuing care to all relevant caregivers
Preparation of discharge records, prescriptions, and referral forms
Total time spent (in minutes): 45
Anticipated Discharge: Today
Subjective/Interval History
-
Date of Service: July 05, 2023
Breathing better
Objective Data
-
Vital Signs:
Vital Signs
Temp Pulse Resp BP Pulse Ox
98.1 F 76 16 138/83 96
07/05/23 07:00 07/05/23 11:29 07/05/23 11:29 07/05/23 07:00 07/05/23 11:29
I&O
07/04/23 07/05/23 07/06/23
06:59 06:59 06:59
Intake Total 480 / 480 550 / 550
Output Total 0 / 0
Balance 480 / 480 550 / 550
Review of Systems
-
History Source: Patient and Coordinated Provider
Constitutional: Denies Fever
EENT: Reports No Symptoms Reported
Respiratory: Reports Cough and Trouble Breathing (progressively improving)
Cardiac: Reports No Symptoms; Denies Chest Pain
Genitourinary: Reports No Symptoms
Physical Exam
-
General: Well Developed, Well Nourished and No Apparent Distress
HEENT: Normocephalic, Atraumatic and Moist Mucous Membranes
Respiratory: Wheezes (markedly improved, coarse mid to end expiratory wheeze, taking much deeper breaths, improved air movement )
Cardiac: Regular Rhythm and S1/S2
GI: Soft, Nontender and Nondistended
Musculoskeletal: No Clubbing, No Cyanosis and No Edema
Neuro: Awake, Alert and Oriented
[2023-07-05] MEDS: EFFEXOR XR 75 MG PO (12:28)
[2023-07-05] MEDS: KLONOPIN 1 MG PO (12:28)
[2023-07-05 13:24] VITALS: BP 145/85
--- NOTE | 2023-07-05 14:15 | W.DS.TRANS ---
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
-
Discharge Instructions:
Discharge Diagnosis/Procedures Acute Asthma Flare
Diet Low Sodium
Activity No restrictions
Driving Restrictions No driving
Bathing Restrictions None
Blood Work CBC, CMP in 1-2 weeks
Instructions:
Stand-Alone Forms:
Changes to Home Medications: Yes
Discharge Medications:
DC Medications w/original date entered in [employer]
omeprazole 40 mg capsule,delayed release 40 mg PO DAILY Gastrointestinal Issue 05/31/10
albuterol sulfate 90 mcg/actuation aerosol inhaler 2 puff inhalation R Q4HPRN PRN sob/wheezing ##0 03/22/19
olanzapine 15 mg disintegrating tablet 15 mg PO QPM bipolar depression 03/22/19
venlafaxine 75 mg capsule,extended release 24 hr 150 mg PO DAILY depression 03/22/19
amlodipine 5 mg tablet 5 mg PO DAILY ##1 04/08/19
clonazepam 1 mg tablet 1 mg PO DAILY@1300 anxiety 09/06/20
aspirin 325 mg tablet 325 mg PO QPM Blood Clot Prevention/Tx 07/01/23
atorvastatin 20 mg tablet 20 mg PO QPM High Cholesterol 07/01/23
bupropion HCl 200 mg tablet,12 hr sustained-release 200 mg PO BID Depression/Anxiety 07/01/23
carvedilol 6.25 mg tablet 6.25 mg PO BID Blood Pressure 07/01/23
clonazepam 1 mg tablet 2 mg PO DAILY@1900 anxiety 07/01/23
donepezil 5 mg tablet 5 mg PO DAILY cognition/memory 07/01/23
fluticasone 100 mcg-salmeterol 50 mcg/dose blistr powdr for inhalation 1 inh inhalation R BID Allergies 07/01/23
guar gum 0.66 tbsp PO DAILY Constipation 07/01/23
lamotrigine 200 mg tablet 200 mg PO BID depression 07/01/23
lisinopril 40 mg tablet 40 mg PO QPM Blood Pressure 07/01/23
montelukast 10 mg tablet 10 mg PO QPM Lung/Breathing Issues 07/01/23
polyethylene glycol 3350 17 gram oral powder packet (Miralax) 11.38 g PO DAILY Constipation 07/01/23
venlafaxine 75 mg capsule,extended release 24 hr 75 mg PO BID@1300,1900 depression 07/01/23
doxycycline hyclate 100 mg capsule 100 mg PO Q12 #14 caps 07/05/23
prednisone 10 mg tablet 10 mg PO DIRECTED #30 tabs 07/05/23
Home Medication Changes
stop HCTZ
Doxycycline for 1 week
Prednisone taper
Pending Results: No
--- NOTE | 2023-07-05 16:58 | CM ---
Patient with Dx Acute Asthma Exacerbation, Anxiety/Bipolar DO. Room air.
Met with patient who was preparing for discharge.
The patient says he feels ready for discharge home today.
His will provide a ride home.
No CM d/c needs identified.
Plan home today.
== END 2023-07-05 13:31 | disposition home or self-care (01) | DRG 202 ==
LOC: 4 EAST ACU 22:27
PROVIDERS: ADMITTING PHYSICIAN Student in an Organized Health Care Education/Training Program; ATTENDING PHYSICIAN Internal Medicine; CONSULT PHYSICIAN Internal Medicine Critical Care Medicine; EMERGENCY PHYSICIAN Emergency Medicine; FAMILY PHYSICIAN Family Medicine
DX: J45.21 Mild intermittent asthma with (acute) exacerbation (principal); E87.1 Hypo-osmolality and hyponatremia; F31.30 Bipolar disorder, current episode depressed, mild or moderate severity, unspecified; I42.8 Other cardiomyopathies; I10 Essential (primary) hypertension; F41.9 Anxiety disorder, unspecified; F12.90 Cannabis use, unspecified, uncomplicated; G47.33 Obstructive sleep apnea (adult) (pediatric); Z79.82 Long term (current) use of aspirin
CPT/HCPCS: 71046; 80048; 80053; 82962; 83735; 85025; 87502; 87811; 93005; 94060; 94640; 97162; 97165; 99285; 99406

== ENCOUNTER → 2023-07-30 09:10 | Outpatient (REF) | payer MEDICARE, SELFPAY | LOC: HWRAD 09:10 | PROVIDERS: ATTENDING PHYSICIAN Nurse Practitioner Adult Health; FAMILY PHYSICIAN Family Medicine | DX: Z87.891 Personal history of nicotine dependence (principal) | CPT/HCPCS: 71271 ==

== ENCOUNTER → 2023-09-24 06:28 | Day surgery (SDC) | payer MEDICARE, SELFPAY | LOC: GI 06:28 | PROVIDERS: ATTENDING PHYSICIAN Internal Medicine | DX: Z12.11 Encounter for screening for malignant neoplasm of colon (principal); Z86.010 Personal history of colon polyps; K64.4 Residual hemorrhoidal skin tags | CPT/HCPCS: 45385; 45380; 88305 ==

== ENCOUNTER → 2023-12-28 10:10 | Outpatient (REF) | payer MEDICARE, SELFPAY | LOC: HWRAD 10:10 | PROVIDERS: ATTENDING PHYSICIAN Family Medicine | DX: M54.59 Other low back pain (principal) | CPT/HCPCS: 72110 ==

== ENCOUNTER 2024-10-10 19:36 | Observation (INO) | payer MEDICARE, SELFPAY ==
[2024-10-10] VITALS (9 sets, daily range): BP systolic 130–158; BP diastolic 85–124; PULSE 91; BMI 30.2; BMI 28.6
--- NOTE | 2024-10-10 12:17 | ED.GENMED ---
History of Present Illness
General
Chief Complaint: Change in Mental Status
Source: spouse
Time Seen by Provider: 10/10/24 11:55
Nursing documentation reviewed up to this point in time: agreed with
History of Present Illness
History of Present Illness:
Patient is a 64-year-old male with history of dementia, hypertension hyperlipidemia left bundle branch block, ( followed by DR Villarreal) bipolar disorder brought to the ER by . is primary caregiver at home. reports patient has had 3
falls over this past weekend. He fell around 3:30 in the morning walking to the bathroom Thursday night and fell twice yesterday. She does report he has some bruising to his left elbow. He is not on blood thinners. They recently saw his family
doctor Dr. Suarez because over the past 3 weeks she has noticed that he seems more confused than normal and his speech is less articulate. He has had a longstanding history of bipolar disorder and has had dementia for years. Because of the recent
change in confusion over the past 3 weeks his Wellbutrin dose was decreased but this just occurred last week.
Past History
Past History
ED Past Medical History: HTN, Hypercholesterolemia and Psychiatric (Bipolar disorder, ADHD, depression)
ED Past Surgical History: Orthopedic
Social History
Tobacco: Smoker (Patient states he smokes one or 2 cigarettes a week)
Alcohol: Occasional
Drug: None
Personal:
Living: with family
Employment: Employed
Family History
Family History: Other (Noncontributory)
Phy Exam
General Physical Exam
General Presentation: no apparent distress
General age: appears stated age
General Skin: warm and dry
General Habitus: normal
General Mental: confused
General Hydration: appears well hydrated
Cardiovascular Exam
Cardiovascular Exam: regular rate/rhythm, no murmur and normal peripheral pulses
Pulmonary Exam
Pulmonary Exam: lungs clear and no respiratory distress
Neurological Exam
Neurological Exam: alert
Musculoskeletal Exam
Musculoskeletal Exam: full ROM and other (No obvious head injury)
Skin Exam
Skin Exam: normal color and warm/dry
Psychiatric Exam
Psychiatric Exam: normal mood/affect
Course
Orders/Labs/Results
Orders:
Orders
10/10/24 12:28
CT Cervical Spine W/o Iv Contr Urgent
Comment:
Reason For Exam: trauma
CT Head W/o Iv Contrast Urgent
Comment:
Reason For Exam: increased confusion and recent falls
IV Insert/Care/Rem.- Treatment PRN
10/10/24 12:29
Case Management Consult ONCE
Case Management Consult: Discharge Planning
Comment: will need more help at home with pt. hx of dementia
10/10/24 12:34
Complete Blood Count/With Diff Urgent
Comprehensive Metabolic Panel Urgent
10/10/24 13:20
Clonazepam [Klonopin] 1 mg PO NOW STA
10/10/24 13:36
Venlafaxine [Effexor] 75 mg PO NOW STA
10/10/24 14:27
Urinalysis Reflex To Culture Urgent
Date Specimen was Collected: 10/10/24
Time Specimen was Collected: 14:25
Urine Microscopic Reflex Cult Urgent
Urine Culture Urgent
BRAULIO Source: U
Specimen Description:
Date Specimen was Collected: 10/10/24
Time Specimen was Collected: 14:25
10/10/24 15:59
Hip, Left 2-3 Views [CR Hip - LT w/wo Pel 2-3 Vw*] Urgent
Comment:
Reason For Exam: pain
Include a pelvis x-ray?: Yes
10/10/24 16:00
Electrocardiogram (*1) Stat
Reason for Study: Other
Other Reason for Exam: chest pain
EKG- Treatment ONCE
10/10/24 16:30
Troponin I Urgent
10/10/24 18:39
Admit/Transfer Patient As Directed
Co-Sign Provider:
Level of Care: Observation services
Assign to:: Medical/Surgical
Physician / Group: Vidal Elizondo
Diagnosis: change in mental status
PRN Pain Medication Management As Directed
May give lesser potent ordered pain med per pt: Yes
preference::
Protocol:: Medication orders for pain may be administered in a
manner that supports deferring to patient preference
when the pt is:
- Requesting an ordered lesser potent pain medication.
Least to most potent pain medications are defined
as: acetaminophen < NSAID < tramadol < opioids
(morphine, oxycodone, hydromorphone).
- Requesting a lesser dose of the same medication IF
ORDERED.
- Requesting a less intrusive route of administration
if both routes are prescribed by the provider (PO <
IV).
10/10/24 18:41
Code Status As Directed
Resuscitation Status: Do not resuscitate
Reached after discussion with pt or family/Healthcare POA: Yes
Decision communicated with: per
10/10/24 18:42
DNR Bracelet Application ONCE
Abnormal Lab Results
10/10/24 10/10/24
12:34 14:27
Hgb 11.8 L g/dL
(13.0-18.0)
Hct 37.7 L %
(39.0-52.0)
MCV 79.4 L fL
(80.0-94.0)
MCH 24.8 L pg
(27.0-31.0)
MCHC 31.3 L g/dL
(33.0-37.0)
RDW 16.8 H %
(11.5-14.5)
Absolute Monos (auto) 0.8 H 10^3/uL
(0.1-0.6)
Monocytes % 9.5 H %
(1.7-9.3)
Chloride 110 H mmol/L
(98-107)
Carbon Dioxide 19 L mmol/L
(22-30)
Glucose 109 H mg/dl
(70-99)
Urine Ketones 3+ A
(Negative)
Urine Bilirubin 1+ A
(Negative)
Urine Urobilinogen 2+ A
(Neg - 1+)
Leukocyte Esterase Rfl 1+ A
(Negative)
Urine Bacteria (Reflex) Few A
(Negative)
Urine Albumin (Reflex) 3+ A
(Neg - Trace)
10/10/24 12:34
10/10/24 12:34
Vital Signs
Initial and Last Documented VS:
Initial Vital Signs
Temp Pulse Resp BP Pulse Ox
98.3 F 89 16 158/99 96
10/10/24 09:38 10/10/24 09:38 10/10/24 09:38 10/10/24 09:38 10/10/24 09:38
Last Documented Vital Signs
Temp Pulse Resp BP Pulse Ox
98.3 F 85 19 134/97 93
10/10/24 09:38 10/10/24 19:15 10/10/24 19:00 10/10/24 19:00 10/10/24 18:45
MDM/Problems Addressed
Differential Diagnosis Includes:
Not limited to head injury, dehydration, UTI
MDM/Problems Addressed:
Patient is a 64-year-old male history of bipolar disorder dementia brought for increasing confusion over the past several weeks by . In addition patient had several falls over this weekend. He presents awake alert confused. She reports he has
had complaints of hip pain prior to the fall. Patient is not on blood thinners. No obvious abnormality/deformity to hip he is ambulatory. CT head and cervical spine negative x-rays pending at this time. No acute abnormality on labs. EKG shows a
left bundle branch block however patient does have a history of that as per .
Patient will require admission as does not feel comfortable taking him home with frequent falls. May need placement, case management consulted.
Chronic conditions affecting care:
Dementia, bipolar disorder
*Pulse Oximetry
SaO2: 96
Patient hypoxic: no
*EKG
Interpreted by ED Provider?: Yes
Heart Rate: 90
Rate: normal
QRS Pattern: left bundle branch block
*Critical Care Note
Total Time (30-74mins, 75-104mins- exclusive of procedures): Not Applicable
ED Attending Note
-
Portions of this chart may have been created with voice recognition software.� Occasional wrong word or��sound alike� substitutions may have occurred due to the inherent limitations of voice recognition software.
Discharge Plan
Departure
Patient Disposition: Admit
Date of Disposition: 10/10/24
Time of Disposition: 16:14
Admit to: Med/Surg
Admit to doctor: hospitalist
Presentation/result/management discussed w/ accepting MD/DO: Hospitalist
Patient with high blood pressure during this ER visit?: Yes
Condition: Fair
Covid-19: Not Applicable
Discharge Problem:
worsening confusion, Ambulatory dysfunction
Prescriptions:
No Action
omeprazole 40 MG capsule,delayed release(DR/EC)
40 mg PO DAILY
venlafaxine 75 MG capsule,extended release 24hr
150 mg PO DAILY
albuterol sulfate [Ventolin HFA] 18 GM HFA aerosol inhaler
2 puff inhalation R Q4HPRN PRN (Reason: sob/wheezing) Qty: 0
clonazepam 1 MG tablet
1 mg PO DAILY
venlafaxine 75 mg capsule,extended release 24hr
75 mg PO BID@1300,1900
lamotrigine 200 mg tablet
200 mg PO DAILY
polyethylene glycol 3350 [Miralax] 17 gram Powder In Packet
8.5 g PO DAILY
bupropion HCl 200 mg tablet sustained-release 12 hr
200 mg PO DAILY
clonazepam 1 MG tablet
2 mg PO QPM
fluticasone propion-salmeterol [Wixela Inhub] 250-50 mcg/dose Blister With Device
1 inh INHALATION R BID
albuterol sulfate 2.5 mg /3 mL (0.083 %) Solution For Nebulization
2.5 mg INHALATION R Q6HPRN PRN (Reason: sob)
olanzapine 10 mg Tablet
30 mg PO HS
Medical Marijuana
1 cap PO HSPRN PRN (Reason: sleep/anxiety)
Referrals:
Anthony Suarez MD [Family Provider, Family Practice]
Discharge Date and Time
Print Language: YEMENI
[2024-10-10 12:59] LABS: ALT (SGPT) 21 U/L (0-50); AST (SGOT) 20 U/L (17-59); Albumin 4.5 g/dl (3.5-5.0); Alkaline Phosphatase 119 U/L (38-126); Blood Urea Nitrogen 9 mg/dl (9-20); Calcium 9.3 mg/dl (8.4-10.2); Carbon Dioxide 19 mmol/L (22-30); Chloride 110 mmol/L (98-107); Glucose 109 mg/dl (70-99); Potassium 3.9 mmol/L (3.5-5.1); Sodium 142 mmol/L (135-145); Total Protein 7.2 g/dl (6.3-8.2); eGFR > 60.00
--- NOTE | 2024-10-10 13:31 | CM ---
Met with patient and at the bedside in the ED. is seeking home care support from an aid/qualifications examiner during the night.
List of home care agencies provided and highlighted the agencies in [facility] near their home.
[2024-10-10 13:32] LABS: Hematocrit 37.7 % (39.0-52.0); Hemoglobin 11.8 g/dL (13.0-18.0); Mean Corp Hgb Conc. 31.3 g/dL (33.0-37.0); Mean Corpuscular Volume 79.4 fL (80.0-94.0); Nucleated Red Blood Cells % 0 % (-); Platelet Count 344 10^3/uL (130-400); Red Cell Dist. Width 16.8 % (11.5-14.5)
[2024-10-10] MEDS: EFFEXOR 75 MG PO (14:28)
[2024-10-10] MEDS: KLONOPIN 1 MG PO (14:29)
[2024-10-10 15:08] LABS: Urine Character Clear (Clear)
[2024-10-10 15:38] LABS: Urine Red Blood Cell 0-2 /HPF (0-2); Urine Squamous Cell 0-2 /LPF (Few)
[2024-10-10 17:10] LABS: Troponin I 0.017 ng/ml
--- NOTE | 2024-10-10 17:47 | HPS.HSE ---
Addendum entered and electronically signed by Vidal Elizondo MD 10/10/24 20:41:
This is an addendum to H&P written by Mary Vega on 10/10/2024. �Patient seen and examined dependently with KEY PERSON.
64-year-old male past medical history of left bundle branch block, dementia, asthma, hypertension, anxiety/bipolar disorder, former tobacco use, marijuana user, hyponatremia, hyperlipidemia, presenting with 3 falls over the weekend, bruising of the
left elbow. �More confused, agitation, decreased p.o. intake and insomnia over 3 weeks.. �Wellbutrin dose decreased last week. �Zyprexa was increased without improvement. �Multiple falls.
Vital signs normal. �Labs unremarkable. �Urinalysis negative.
CT head negative CT cervical spine negative hip x-ray negative.
Patient with worsening cognitive decline likely secondary to worsening dementia. �Trauma workup negative.
PT OT. �Case management consulted for placement. �Outpatient follow-up with his psychiatrist.
Original Note:
Family Physician
-
Family Physician: Anthony Suarez
Chief Complaint
-
generalized weakness and change in mental status
History of Present Illness
Patient is a 64-year-old male with past medical history significant for hypertension, hyperlipidemia, asthma, dementia, anxiety/depression, bipolar and GERD who presented to [facility] ED foe evaluation of generalized weakness and change in mental status.
at bedside who supplies HPI. is primary caregiver at home and reports that patient has had a significant decline over the past 3 weeks. She reports he was diagnosed with dementia this past year but has been symptomatic for approximately 7
years. She reports in the past 3 weeks patient has had decreased PO intake, has increased unsteadiness and recurrent falls and has increased confusion and difficulty communicating. She reports 3 falls just in last few days. She reports restlessness
at night and inability to sleep. He was seen by psych and primary care with medication changes last week to attempt to control restlessness and agitation. She states that patient bupropion was decreased, increased olanzapine and stopped memantine.
She does not believe there was significant improvement of symptoms since medication adjustments. She denies any recent illness, fever, chills, cough, shortness of breath, chst pain, nausea, vomiting, constipation, diarrhea or urinary symptoms.
Medical History
Past Medical History
Past Medical History: Reports Other
Additional Past Medical History:
hypertension
hyperlipidemia
asthma
anxiety/depression
bipolar
GERD
DERIAN on CPAP
obesity
former tobacco use
LBBB
Past Surgical History: Reports Other
Additional Past Surgical History:
Rt RTC 2018
Jaw
left shoulder replacement 2018
bunion surg
Left Reverse total shoulder 04/2019
Left knee scope PMM (DOS 09.25.2020)
Cath
eft Rotator Cuff 12/2020
Social History
Tobacco: Former Smoker (rarely smoked tobacco in past )
Alcohol: Occasional (3x week with have a few beers, alcohol abuse history )
Drug: Marijuana (daily smokes )
Personal:
Living: With Family
Employment: Disabled
Family History
Family History: Not pertinent
Allergies / Home Medications
Allergies reflects when Allergies were last updated in [employer].
Home Medications with original date entered in [employer]
Allergy/Medication List:
Allergies
Allergy/AdvReac Type Severity Reaction Status Date / Time
No Known Drug Allergies Allergy - Verified 10/10/24 09:38
environmental Allergy sinus Uncoded 10/10/24 09:38
congestion,
'lungs
swell'asthma
Home Medications
omeprazole 40 mg capsule,delayed release 40 mg PO DAILY Gastrointestinal Issue 05/31/10
albuterol sulfate 90 mcg/actuation aerosol inhaler (Ventolin HFA) 2 puff inhalation R Q4HPRN PRN sob/wheezing ##0 03/22/19
venlafaxine 75 mg capsule,extended release 24 hr 150 mg PO DAILY depression 03/22/19
clonazepam 1 mg tablet 1 mg PO DAILY anxiety 09/06/20
bupropion HCl 200 mg tablet,12 hr sustained-release 200 mg PO DAILY Depression/Anxiety 07/01/23
clonazepam 1 mg tablet 2 mg PO QPM anxiety 07/01/23
lamotrigine 200 mg tablet 200 mg PO DAILY depression 07/01/23
polyethylene glycol 3350 17 gram oral powder packet (Miralax) 8.5 g PO DAILY Constipation 07/01/23
venlafaxine 75 mg capsule,extended release 24 hr 75 mg PO BID@1300,1900 depression 07/01/23
Medical Marijuana 1 cap PO HSPRN PRN sleep/anxiety 10/10/24
albuterol sulfate 2.5 mg/3 mL (0.083 %) solution for nebulization 2.5 mg inhalation R Q6HPRN PRN sob 10/10/24
fluticasone 250 mcg-salmeterol 50 mcg/dose blistr powdr for inhalation (Ebxela Inhub) 1 inh inhalation R BID 10/10/24
olanzapine 10 mg tablet 30 mg PO HS 10/10/24
Review of Systems
-
Unable to obtain full review of systems at this time due to: Dementia
History Source: Family
Constitutional: Reports No Symptoms
EENT: Reports No Symptoms
Respiratory: Reports No Symptoms
Cardiac: Reports No Symptoms
Abdomen/GI: Reports No Symptoms
: Reports No Symptoms
Musculoskeletal: Reports No Symptoms
Skin: Reports No Symptoms
Neurological: Reports Weakness and Other (increased confusion, restlessness and agitation )
Endocrine: Reports No Symptoms
Hematologic/Lymphatic: Reports No Symptoms
Psych: Reports No Symptoms
Physical Exam
Vital Signs
Vital Signs
Temp Pulse Resp BP Pulse Ox
98.3 F 89 20 130/89 93
10/10/24 09:38 10/10/24 16:30 10/10/24 16:30 10/10/24 16:00 10/10/24 16:30
Physical Exam
General: Well Developed, Well Nourished, No Apparent Distress and Obese
HEENT: NormoCephalic, Moist mucous membranes and Atraumatic
Respiratory: Clear and Non Labored Respirations
Cardiac: S1/S2 and Regular Rhythm; No Murmur, Rub or Gallop
GI: Soft, Non Tender, Non Distended and Normal Bowel Sounds; No Organomegaly
Rectal: Deferred by Provider
Genito-urinary: Deferred by me
Musculoskeletal: No Clubbing, No Cyanosis and No Edema
Skin: Warm and IV/Catheter Site
Neuro: Awake, Alert and Nonfocal/grossly intact
Psych: Confused and Other (restless )
Laboratory Results
-
10/10/24 12:34
10/10/24 12:34
Laboratory Results
Total Bilirubin 1.0 mg/dl (0.2-1.3) 10/10/24 12:34
AST 20 U/L (17-59) 10/10/24 12:34
ALT 21 U/L (0-50) 10/10/24 12:34
Alkaline Phosphatase 119 U/L (38-126) 10/10/24 12:34
Troponin I 0.017 ng/ml 10/10/24 16:30
Data Reviewed
-
Medical Tests (Nuc Med, Echo, EKG etc): Report Reviewed by me (EKG: NORMAL SINUS RHYTHM LEFT AXIS DEVIATION LEFT BUNDLE BRANCH BLOCK)
Lab Data: Labs Reviewed by me
Impression/Plan
-
IMPRESSION/PLAN:
#generalized weakness and increased agitation/restlessness likely 2/2 dementia decline
hgb 11.8, hct 37.7
UA: not suggestive of UTI
EKG: NORMAL SINUS RHYTHM
LEFT AXIS DEVIATION
LEFT BUNDLE BRANCH BLOCK
Head/C-Spine CT: No acute intracranial abnormality.
No acute abnormalities within the cervical spine.
Multilevel cervical spondylosis. See above.
- Admit to med/surg
- consult case management
- consult PT/OT
#asthma
- continue albuterol PRN
#anxiety/depression
#bipolar
#dementia
- continue bupropion, clonazepam, lamotrigine, olanzapine and venlafaxine
#GERD
- continue omeprazole
#hypertension
#hyperlipidemia
Code status: DNR
DVT prophylaxis: lovenox sq
[2024-10-10] MEDS: KLONOPIN 2 MG PO (21:24)
[2024-10-10] MEDS: EFFEXOR XR 75 MG PO (21:31)
[2024-10-10] MEDS: ZYPREXA 30 MG PO (21:31)
[2024-10-10] MEDS: ADVAIR HFA 115/21 MCG INHALER 2 PUFF INH (22:22)
[2024-10-11 06:41] LABS: Hematocrit 38.8 % (39.0-52.0); Hemoglobin 12.3 g/dL (13.0-18.0); Mean Corp Hgb Conc. 31.7 g/dL (33.0-37.0); Mean Corpuscular Volume 79.3 fL (80.0-94.0); Platelet Count 349 10^3/uL (130-400); Red Cell Dist. Width 17.0 % (11.5-14.5)
[2024-10-11 07:00] VITALS: BP 143/95
[2024-10-11 07:12] LABS: Blood Urea Nitrogen 11 mg/dl (9-20); Calcium 9.2 mg/dl (8.4-10.2); Carbon Dioxide 21 mmol/L (22-30); Chloride 109 mmol/L (98-107); Estimated Creatinine Clearance 78 ml/min; Glucose 104 mg/dl (70-99); Potassium 4.0 mmol/L (3.5-5.1); Sodium 143 mmol/L (135-145); eGFR > 60.00
[2024-10-11] MEDS: ADVAIR HFA 115/21 MCG INHALER 2 PUFF INH ×2 (07:39→19:44)
[2024-10-11] MEDS: EFFEXOR XR 150 MG PO (08:06)
[2024-10-11] MEDS: WELLBUTRIN SR (12 hour sustained release) 200 MG PO (08:06)
[2024-10-11] MEDS: LAMICTAL 200 MG PO (08:06)
[2024-10-11] MEDS: KLONOPIN 1 MG PO (08:06)
[2024-10-11] MEDS: PROTONIX 40 MG PO (08:06)
--- NOTE | 2024-10-11 11:29 | HOSPNOTE ---
Spoke with spouse about hospice and the philosophy. The spouse is not sure if she needs facility placement with hospice or home hospice with caregivers. CM will give list of caregiving agencies and send referrals to SNF. Spouse is aware of the room
charge with hospice. We will continue to follow and support.
[2024-10-11 11:45] VITALS: BP 141/100; O2SAT 98
[2024-10-11 12:14] VITALS: BP 143/101; PULSE 90; O2SAT 96
[2024-10-11] MEDS: EFFEXOR XR 75 MG PO ×2 (12:17→18:01)
--- NOTE | 2024-10-11 13:32 | W.PN.HOSP.TC ---
Today's Communication/Plan
-
Follow-up case management
Assessment / Plan
Assessment / Plan
Falls, mechanical
Trauma workup negative
PT/OT consulted
Progressive dementia
Not eating well therefore failure to thrive
Already on palliative
unable to care for him at home and asking for help even possible placement even considering hospice
home school liaison officer called and notified
Case management aware
Asthma
Continue albuterol
Anxiolytics bipolar dementia
Continue bupropion clonazepam Lamictal olanzapine and venlafaxine
GERD
Continue omeprazole
Anticipated Discharge: Within 24 hours
Subjective/Interval History
-
Date of Service: October 11, 2024
Seen and examined. No new complaints. No acute overnight events.
Objective Data
-
Labs:
Laboratory Results
10/11/24
05:42
WBC 9.8
Hgb 12.3 L
Hct 38.8 L
Plt Count 349
Sodium 143
Potassium 4.0
Chloride 109 H
Carbon Dioxide 21 L
BUN 11
Creatinine 0.9
Glucose 104 H
Calcium 9.2
Vital Signs:
Vital Signs
Temp Pulse Resp BP Pulse Ox
98 F 87 18 143/95 96
10/11/24 07:00 10/11/24 07:41 10/11/24 07:41 10/11/24 07:00 10/11/24 08:10
I&O
10/10/24 10/11/24 10/12/24
06:59 06:59 06:59
Output Total 500 / 500
Balance -500 / -500
Physical Exam
-
General: Comfortable
HEENT: Normocephalic and Atraumatic
Respiratory: Clear to Auscultation
Cardiac: Regular Rhythm
GI: Soft, Nontender and Nondistended
Musculoskeletal: No Clubbing and No Cyanosis
Skin: Warm
Neuro: Awake
Psych: Calm
[2024-10-11 15:00] VITALS: BP 135/97
--- NOTE | 2024-10-11 15:58 | CM ---
Patient diagnosed w/ dementia. Spoke w/ spouse, Dasia, initial assessment completed. Patient is a 64-year-old male with past medical history significant for hypertension, hyperlipidemia, asthma, dementia, anxiety/depression, bipolar and GERD who
presented to [facility] ED foe evaluation of generalized weakness and change in mental status. Patient currently on 1:1 for falls.
Patient resides w/ spouse in a 1sty, 2 bedroom home, 1 step up from porch to enter from the front, 2 steps from the garage. Patient and spouse reside in a 55+ community. Spouse is the caregiver for patient. Per Dasia, spouse is assisted w/
ambulation as his balance is not good, assisted w/ getting in and out of the bed, assisted w/ toileting. Patient is diagnosed w/ dementia and Dasia stated that patient would not understand the concept of learning how to use a cane or RW. Denies
SNF/HC hx. Patient has been engaged in OP PT in the past for balance on and off for 1-2 years, last was about 6 months ago.
Patient admitted obs. BOWERS form verbally reviewed w/ Dasia, copy left at patient's bedside per request, copy on chart
Hospitalist consulted hospice. Per [facility], Dasia is interested in a SNF list and caregiver list to explore. Dasia not sure if she can manage patient home w/ hospice care.
CM had an extensive conversation w/ Dasia about hospice, SNF placement vs home w/ hospice. CM explained if patient was to go to SNF, she would be responsible for room and board cost, hospice service would be covered under insurance. Dasia shared
patient would not be eligible for Medicaid as he has a pension, [employer] account and social security he is receiving. CM explained patient could private pay for LTC until he is eligible for Medicaid. CM explained if patient was to go home w/ hospice and
if she chose aide support, that would be private pay as well. CM explained some hospice agencies do offer home health aides for a certain amount of hours. Dasia stated 24 hour care is important, though she works from home, she wouldn't be able to
manage 24 hour care for patient and work. Dasia stated patient is fidgety and restless, mostly tries to get up and move around overnight. Patient does not have any aggressive behaviors.
At this time, Dasia requested SNF list and hospice list to explore for LTC w/ hospice. CM emailed list to [email or web address].
requested 3-5 facilities for Dasia to choose so referrals can be made. made Dasia aware that some facilities may require a financial application or may have a waiting list if there are no beds. Dasia will contact tomorrow w/ choices to send
referrals to.
Plan: Possible LTC placement w/ hospice
[2024-10-11] MEDS: KLONOPIN 2 MG PO (18:01)
[2024-10-11] MEDS: LOVENOX 40 MG SC (18:02)
[2024-10-11] MEDS: ZYPREXA 30 MG PO (21:15)
[2024-10-11 23:16] VITALS: BP 137/97
[2024-10-12 07:00] VITALS: BP 143/91
[2024-10-12] MEDS: ADVAIR HFA 115/21 MCG INHALER 2 PUFF INH ×2 (07:44→19:37)
[2024-10-12] MEDS: WELLBUTRIN SR (12 hour sustained release) 200 MG PO (08:15)
[2024-10-12] MEDS: EFFEXOR XR 150 MG PO (08:15)
[2024-10-12] MEDS: PROTONIX 40 MG PO (08:15)
[2024-10-12] MEDS: LAMICTAL 200 MG PO (08:16)
[2024-10-12] MEDS: KLONOPIN 1 MG PO (08:16)
--- NOTE | 2024-10-12 11:32 | CM ---
CM reviewed chart, patient seen bedside with , on 1:1. CM met with in [facility], provided list of facilities for LTC with Hospice ([facility]- first choice, is an [facility], [facility], [facility], [facility], [facility]). would like Hospice to follow patient if possible, aware some facilities have preferred Hospice provider at facility. has priced out live in care through [facility], about $395 a day. reports she is still working and
cannot be with patient 22/09. CM will place referrals in [facility], will continue to follow for all discharge planning needs.
Plan; referrals placed for LTC with hospice
--- NOTE | 2024-10-12 12:41 | W.PN.HOSP.TC ---
Today's Communication/Plan
-
-follow up further CM and Hospice discussions
dispo planning
Assessment / Plan
Assessment / Plan
Falls, mechanical
-Trauma workup negative
-PT/OT evaluated
Progressive dementia
Not eating well therefore failure to thrive
Already on palliative
unable to care for him at home and asking for help even possible placement even considering hospice
administrative liaison called and notified
Case management aware
-follow up further CM and Hospice discussions
Asthma
Continue albuterol
Anxiolytics bipolar dementia
Continue bupropion clonazepam Lamictal olanzapine and venlafaxine
GERD
Continue omeprazole
Anticipated Discharge: 24 - 48 hours
Subjective/Interval History
-
Date of Service: October 12, 2024
he is without acute complaints
states he ate well
Objective Data
-
Vital Signs:
Vital Signs
Temp Pulse Resp BP Pulse Ox
99.7 F 86 18 143/91 98
10/12/24 07:00 10/12/24 07:00 10/12/24 07:00 10/12/24 07:00 10/12/24 07:00
I&O
10/11/24 10/12/24 10/13/24
06:59 06:59 06:59
Intake Total 420 / 420
Output Total 500 / 500
Balance -500 / -500 420 / 420
Review of Systems
-
History Source: Patient
All other systems: Reviewed and negative
Physical Exam
-
General: Comfortable
HEENT: Normocephalic and Atraumatic
Respiratory: Clear to Auscultation
Cardiac: Regular Rhythm
GI: Soft, Nontender and Nondistended
Musculoskeletal: No Clubbing and No Cyanosis
Skin: Warm
Neuro: Awake
Psych: Calm
Data Reviewed
-
Diagnostic Radiology: Report Reviewed by me
Labs: Labs Reviewed by me
[2024-10-12] MEDS: EFFEXOR XR 75 MG PO ×2 (13:39→18:12)
[2024-10-12 15:00] VITALS: BP 140/95
[2024-10-12] MEDS: KLONOPIN 2 MG PO (17:14)
[2024-10-12] MEDS: LOVENOX 40 MG SC (17:14)
[2024-10-12] MEDS: ZYPREXA 30 MG PO (21:11)
[2024-10-12 23:09] VITALS: BP 155/97
[2024-10-13 07:08] VITALS: BP 132/98
[2024-10-13] MEDS: EFFEXOR XR 150 MG PO (07:37)
[2024-10-13] MEDS: PROTONIX 40 MG PO (07:37)
[2024-10-13] MEDS: LAMICTAL 200 MG PO (07:37)
[2024-10-13] MEDS: KLONOPIN 1 MG PO (07:38)
[2024-10-13] MEDS: WELLBUTRIN SR (12 hour sustained release) 200 MG PO (07:38)
[2024-10-13] MEDS: ADVAIR HFA 115/21 MCG INHALER 2 PUFF INH (07:47)
--- NOTE | 2024-10-13 10:31 | W.PN.HOSP.TC ---
Addendum entered and electronically signed by Madelyn Jordan MD 10/13/24 10:48:
patient agitated at night. discussed with , his Zyprexa was increased from 20mg to 25mg in August then 30mg one week ago.
I will start standing Haldol. Discussed risk of qtc prolongation with but given goal is comfort on hospice, benefits of keeping patient calm outweigh risk of qtc prolongation
will start Haldol 1mg daily @ 8PM and decrease Zyprexa to 20mg
Original Note:
Today's Communication/Plan
-
dispo planning
Assessment / Plan
Assessment / Plan
Progressive dementia
Not eating well therefore failure to thrive
-working on hospice placement
Agitation
-continue BID Clonazepam and evening Olanzapine
Falls, mechanical
-Trauma workup negative
-PT/OT evaluated
Asthma
Continue albuterol
Anxiolytics bipolar dementia
Continue bupropion clonazepam Lamictal olanzapine and venlafaxine
GERD
Continue omeprazole
Anticipated Discharge: Within 24 hours
Subjective/Interval History
-
Date of Service: October 13, 2024
patient calm on day shift
Objective Data
-
Vital Signs:
Vital Signs
Temp Pulse Resp BP Pulse Ox
98.2 F 91 16 132/98 94
10/13/24 07:08 10/13/24 07:49 10/13/24 07:49 10/13/24 07:08 10/13/24 09:55
I&O
10/12/24 10/13/24 10/14/24
06:59 06:59 06:59
Intake Total 420 / 420 2019
Output Total 1600 / 1600
Balance 420 / 420 420 / 420
Review of Systems
-
History Source: Patient
All other systems: Reviewed and negative
Physical Exam
-
General: Comfortable
HEENT: Normocephalic and Atraumatic
Respiratory: Clear to Auscultation
Cardiac: Regular Rhythm
GI: Soft, Nontender and Nondistended
Musculoskeletal: No Clubbing and No Cyanosis
Skin: Warm
Neuro: Awake
Psych: Calm
Data Reviewed
-
Diagnostic Radiology: Report Reviewed by me
Labs: Labs Reviewed by me
--- NOTE | 2024-10-13 11:18 | CM ---
Addendum entered by Vianey Parekh 10/13/24 14:26:
Spoke w/ Bere/Eli Mendoza director regarding patient's admission status. Per Bere, nurse administrator of home health is reviewing the financial application at this time.
Updated [facility]/ hospice, will plan for start of care tomorrow the earliest
Original Note:
Chart reviewed. Referrals sent to facilities for LTC w/ hospice. Spoke w/ daughter, Christine, who stated she and her daughter toured [facility] yesterday and was satisfied. Financial application was completed and submitted this morning. Christine awaiting
correspondence from admissions.
Updated hospitalist
Plan: LTC w/ hospice (Pending final determination from [facility])
[2024-10-13] MEDS: EFFEXOR XR 75 MG PO ×2 (12:09→18:04)
--- NOTE | 2024-10-13 13:08 | HOSPNOTE ---
Hospice continues to follow. Notes reviewed, family has chosen SNF at [facility] with hospice pending acceptance by [facility]. Spoke to MANAGER CODING and she is checking with [facility] admissions for approval. can accept patient at [facility] as early as tomorrow. More
information to follow.
[2024-10-13 15:09] VITALS: BP 128/79
[2024-10-13] MEDS: KLONOPIN 2 MG PO (18:00)
[2024-10-13] MEDS: ADVAIR HFA 115/21 MCG INHALER INH (19:56)
[2024-10-13] MEDS: HALDOL 1 MG PO (21:33)
[2024-10-13] MEDS: ZYPREXA 20 MG PO (21:33)
[2024-10-13 23:44] VITALS: BP 127/82
[2024-10-14] MEDS: HALDOL 1 MG PO ×2 (03:19→10:37)
--- NOTE | 2024-10-14 06:32 | PTCARENOTE ---
Pt had episode of increased confusion, agitation, irritability. Pt was on all four limbs (hands and feet) on bed standing and refusing redirection. KILN CAR REPAIRER notified after team support and verbal deescalation being ineffective. Pt given haldol 1 mg PO at
0319, positive effect.
[2024-10-14 07:10] VITALS: BP 124/70
[2024-10-14] MEDS: LAMICTAL 200 MG PO (07:40)
[2024-10-14] MEDS: WELLBUTRIN SR (12 hour sustained release) 200 MG PO (07:40)
[2024-10-14] MEDS: EFFEXOR XR 150 MG PO (07:40)
[2024-10-14] MEDS: KLONOPIN 1 MG PO (07:40)
[2024-10-14] MEDS: PROTONIX 40 MG PO (07:40)
[2024-10-14] MEDS: ADVAIR HFA 115/21 MCG INHALER 2 PUFF INH (08:36)
[2024-10-14] MEDS: TYLENOL 650 MG PO (09:07)
--- NOTE | 2024-10-14 09:27 | HOSPNOTE ---
Addendum entered by Criselda Andrea RN 10/14/24 16:30:
Per Spouse Christine, [facility] can accept patient once he is off haldol and 1:1 for 24h. Psych has provided medication recommendations. CM to send referral to [facility] which is [facility] preferred hospice. Reviewed with
spouse that it will take sometime to make these adjustments and to ensure he is safe to remove from 1:1 and transfer to SNF. She is aware he would not likely transfer to SNF before Thursday/Thursday at the earliest. Reviewed that CM and liaison from
[facility] will be in touch with her. hospice will sign off at this time. CM, Attending and Primary RN updated on the above.
Addendum entered by Criselda Andrea RN 10/14/24 12:19:
[facility] has now stated they can not accept patient. [facility] per spouse Christine does not have bed availability. Spouse Christine mentioned [facility]- to send referral and reach out to them. Spouse aware we are not their preferred and is
okay with their preferred if able to accept patient. Also Attending to consult Psych to see if alternative available to Haldol for behavior management. Spouse is updated and aware of current situation. More information to follow.
Addendum entered by Criselda Andrea RN 10/14/24 10:16:
Patient remains restless, Attending to round and adjust medications. Nurse to d/c 1:1 once medication adjustments are ordered. Plan would be then to d/c patient to [facility] tomorrow and sign onto hospice. Spouse Christine updated and in agreement.
Addendum entered by Criselda Andrea RN 10/14/24 09:38:
Just notified by CM that patient is on a 1:1. Awaiting to hear from CM if [facility] will accept today or if 1:1 has to be d/c for 24h and then accept tomorrow. More information to follow.
Original Note:
Confirmation given that patient has been accepted to [facility]. CM is working on arranging transport for 1 pm. Hospice will meet patient at [facility] and sign patient onto hospice services. Spouse Christine is updated as well.
--- NOTE | 2024-10-14 09:32 | CM ---
Addendum entered by Stacey Frank 10/14/24 16:52:
TCB from Whitney at [facility], they do not use [facility], referral faxed to [phone].
Addendum entered by Stacey Frank 10/14/24 16:42:
Per Nathalia at [facility], patient will be accepted once off the 1:1 and Haldol x 24 horrs and patients behaviors under control. Spouse is touring facility. Nathalia was not sure if [facility] uses [facility], but she will also forward clinicals to
[facility]. Left VM for [facility] carbon lamp cleaner nurse, no call back yet. [facility] referral sent via [facility], please verify acceptance.
Addendum entered by Stacey Frank 10/14/24 15:49:
tcb from Ayanna at [facility], information received and forwarded to her test administrator- Nathalia Corey, if Nathalia is needed over the weekend her cell# is [phone]. (Ayanna is off the weekend). Ayanna given CM main #. Need to await administrators
determination.
Psychiatry in to see patient and medications adjusted.
Addendum entered by Stacey Frank 10/14/24 14:12:
Email from Ayanna GUTIERREZ ext. [phone] from [facility], clinicals faxed to fax# [phone]
Patients clinicals to be reviewed and she will let CM know if approved.
Patients spouse is completing financials.
Addendum entered by Stacey Frank 10/14/24 13:12:
Spoke with Ayanna from [facility]. They do not accept patients on Haldol and would need to be off 1:1. Ayanna will end me a financial application that needs to be completed.
Addendum entered by Stacey Frank 10/14/24 12:56:
family requesting [facility], TC left for patient placement coordinator.
Addendum entered by Stacey Frank 10/14/24 11:51:
TC from liaison at [facility] and hospice. [facility] is now not able to offer a bed due to behaviors and agitation.
MD updated.
Liaison from [facility] called family.
TC from spouse Christine stating patient has been on 1:1 and receiving Haldol and not sure why this is now an issue. CM explained this CM just found out today about 1:1 and Haldol and needed to let facility know. After facility reviewed, they are unable
to accept.
Original Note:
Recieved call from daughter Christine that patient accepted at [facility] for Hospice.
Spoke with liaison at [facility], bed available today 1 pm.
Liaison requested PASSR be completed and sent.
Per nursing documentation patient on a 1:1 for agitation.
Left VM for [facility] liaison, await TCB.
Plan: [facility] for Hospice once medically stable
Report #[phone],
--- NOTE | 2024-10-14 10:35 | W.PN.HOSP.TC ---
Today's Communication/Plan
-
standing Haldol, DC 1:1
dispo planning for SNF Hospice
Assessment / Plan
Assessment / Plan
Progressive dementia
Failure to Thrive, poor PO intake
-plan is for SNF hospice
-DC 1:1; patient needs to be off 1:1 24 hours prior to DC to SNF
-control agitation (as below)
Agitation
-continue BID Clonazepam
-Decrease Olanzapine to 20mg qhs - can continue to taper down at SNF
-started on Haldol 1mg qhs on 10/13 and required an extra dose overnight. Will start standing Haldol 1mg PO QD and increase evening dose to 2mg
-will titrate as needed
-DC 1:1
Phlebitis
-confirmed with morning of 10/13 - patient would not want antibiotics
Falls, mechanical
-Trauma workup negative
-PT/OT evaluated
Asthma
Continue albuterol
Anxiolytics bipolar dementia
Continue bupropion, Venlafaxine, Lamotrigine
GERD
Continue omeprazole
DVT PPx not indicated in setting of comfort care
DNR
Anticipated Discharge: 24 - 48 hours
Subjective/Interval History
-
Date of Service: October 14, 2024
sitting up in chair
denies pain
Objective Data
-
Vital Signs:
Vital Signs
Temp Pulse Resp BP Pulse Ox
98.6 F 91 16 124/70 97
10/14/24 07:10 10/14/24 08:40 10/14/24 08:40 10/14/24 07:10 10/14/24 08:56
I&O
10/13/24 10/14/24 10/15/24
06:59 06:59 06:59
Intake Total 2019 1080 / 1080
Output Total 1600 / 1600
Balance 420 / 420 1080 / 1080
Review of Systems
-
History Source: Patient
All other systems: Reviewed and negative
Physical Exam
-
General: Comfortable
HEENT: Normocephalic and Atraumatic
Respiratory: Clear to Auscultation
Cardiac: Regular Rhythm
GI: Soft, Nontender and Nondistended
Musculoskeletal: No Clubbing and No Cyanosis
Skin: Warm and Other (right antecubital fossa with mild redness from prior iV site)
Neuro: Awake
Psych: Calm
Data Reviewed
-
Diagnostic Radiology: Report Reviewed by me
Labs: Labs Reviewed by me
--- NOTE | 2024-10-14 14:12 | CON.MD ---
Consultation - Medical
-
patient seen chart reviewed. spoke with nursing dr rolle ans sonam the latter by text. this consult being done today october 14 2024. the patient is a 64 year old man who has hx bipolar disorder and early onset of dementia. he was admitted w
complaint of three falls in recent days as well as increased confusion. his speech had been noted to be less well articulated as well. he is on a number of psychotropic medications . wellbutrin dose was increased last week. his current psych meds
include wellbutrin 200 mg daily klonopin one mg q am and 2 mg q hs zyprexa currently 20 mg q hs decreased from 30 mg haldol added while here one mg q am and 2 mg q pm klonopin one mg q am and 2 mg q hs effexor 150 mg bid and lamictal 200 mg
daily. i did call the psychiatrist treating him dr proctor and left message w my cell. he has been struggling here with agitation starting in the late afternoon and continuing in the evening. nursing tells me he is not at all steady on his feet and
efforts to contain him to prevent falls have resulted in agitation. last night he was on his bed on all fours. haldol was added in the hope that it would help calm him in the evening but senior living to which it is hoped he will return does not
allow haldol to be administered. the patient this afternoon was clearly very very confused . told me when i asked him where he was said '[place] ' he is disoriented to time as well. he could tell he his name and how to pronounce it. he was
quite pleasant although as stated could not carry on any conversation. he is on a one to one to keep him from getting oob or up from his chair and falling. patient at this point has been referred to hospice. i spoke to patient's . patient
bipolar for many many years. he has also been a very anxious person. dr hui proctor has been his psychiatrist for ten to 15 years or longer. he also had psychologist he had been seeing every two weeks for some time. he was dx with dementia last
january by dr barrios neurologist. he had had sx for a very long time but would not agree to get tested. they convinced him to get tested bc he was having accidents and license was being taken away. it is thought to be a mixed px with alzheimer's
etoh dementia (he drank heavily til 2016) he had been living w his mario now. they moved a few years ago to a smaller 55 plus home from their single family dwelling to make it easier to care for him and for their home.
past medical hx patient with hx inc fbs htn non ischemic cardiomyopathy erin hld asthma left bundle branch block w long qtc 545 ua without infection. admit urine with 2 plus ketones wbc and rbc hx hyponatremia now 143 hgb 12.3 patient also w hx
phlebitis gerd and dvt
past psych hx patient according to was early on depressed and rx w paxil. he had a manic episode then but the bulk of his illness has been depression although says at this point 'depression is the least of our worries. ' he was
hospitalized psychiatrically in 2016 on a commitment.
fh non contributory
substance abuse hx etoh abuse see above got sober in about 1016 mj noted in 2010 cocaine in urine sober from that. he does use cannabis now said 'it helps quite a lot but not completely'
social resided with prior to admit. patient has two children one in [place] and one [facility]. patient has two grandkids. he was able to tell me he worked in [email or web address] in the past.
mse alert but oriented to person only. calm and pleasant at present. speech at present is okay but reportedly was dysarthric thought process unable to discern given his very brief inconsistent and often irrelevant responses. no overt psychosis
mood is calm affect constricted denies si cognition very impaired insight judgment impaired
dx dementia with behavioral disturbance by hx bipolar disorder
plan would make changes in his meds as follows. dc wellbutrin as it could be agitating him. cut effexor to 225 mg daily from 300 mg. cannot stop all at once given effexor does cause sx in wd. stop haldol as senior living will not accept him on
haldol. would add risperdal one mg q am and 2 mg at 3 pm to prepare for night time agitation. continue klonopin for now as he has been on it for some time although some would argue klonopin exacerbates dementia continue lamictal cut zyprexa back
to 15 mg with plan to dc if risperdal effective. would not stop suddenly bc anticholinergic rebound. will take some time to see if this regimen works. could consider depakote as well although it can increase risk of aponte araseli syndrome from
lamictal psych will follow
[2024-10-14] MEDS: EFFEXOR XR PO (14:52)
[2024-10-14] MEDS: RISPERDAL 2 MG PO (14:58)
[2024-10-14 15:29] VITALS: BP 123/78
[2024-10-14] MEDS: KLONOPIN 2 MG PO (17:04)
--- NOTE | 2024-10-14 19:00 | PTCARENOTE ---
Pt. refused to have vital signs checked.
[2024-10-14] MEDS: ADVAIR HFA 115/21 MCG INHALER INH (20:04)
[2024-10-14] MEDS: EFFEXOR XR 75 MG PO (21:13)
[2024-10-14] MEDS: DESYREL 50 MG PO (21:14)
[2024-10-14] MEDS: ZYPREXA 5 MG PO (21:18)
[2024-10-14] MEDS: ZYPREXA 10 MG PO (21:18)
[2024-10-14 23:50] VITALS: BP 129/90
--- NOTE | 2024-10-15 07:07 | W.PN.HOSP.TC ---
Today's Communication/Plan
-
Discharge planning SNF hospice
If sufficient control agitation can't be obtained, suspect pt may be a candidate for inpt hospice terminal delirium
Assessment / Plan
Assessment / Plan
Physical Exam
General: No acute distress, appears comfortable at this time
HEENT: Normocephalic and Atraumatic
Respiratory: Clear to Auscultation
Cardiac: Regular Rhythm
GI: Soft, Nontender and Nondistended
Musculoskeletal: No Clubbing and No Cyanosis
Skin: Warm, Rt antecubital fossa with mild redness from prior iV site)
Neuro: Sleeping
Psych: Calm
64M Advance dementia here with failure to thrive and delirium/agitation.
Progressive dementia Agitation
Failure to Thrive, poor PO intake
-plan is for SNF hospice
-Psych eval appreciated
-Discontinue 1:1 as feasible; patient needs to be off 1:1 24 hours prior to DC to SNF
-continue BID Clonazepam (1mg daily, 2 mg QPM)
-Zyprexa 15mg qhs
-Wellbutrin discontinued
-Effexor XR tapered to 225 mg daily
-off Haldol (facility won't accept on Haldol), switched to risperidone 1 mg daily, 2 mg @1500
-If sufficient control agitation can't be obtained, suspect pt may be a candidate for inpt hospice terminal delirium
Phlebitis
-Dr Jordan confirmed with morning of 10/13 - patient would not want antibiotics
Falls, mechanical
-Trauma workup negative
-PT/OT eval appreciated
Asthma
Continue albuterol
Anxiolytics bipolar dementia
Continue bupropion, Venlafaxine, Lamotrigine
GERD
Continue omeprazole
DVT PPx not indicated in setting of comfort care
DNR
I spent a total of 45 minutes with the patient or on the floor. More than 50% of this time involved counseling and coordination of care.
Anticipated Discharge: 24 - 48 hours
Subjective/Interval History
-
Date of Service: October 15, 2024
Sleeping appears comfortable. no acute distress.
Objective Data
-
Vital Signs:
Vital Signs
Temp Pulse Resp BP Pulse Ox
99.8 F 102 14 129/90 98
10/14/24 23:50 10/14/24 23:50 10/14/24 23:50 10/14/24 23:50 10/14/24 23:50
I&O
10/14/24 10/15/24 10/16/24
06:59 06:59 06:59
Intake Total 1080 / 1080 960 / 960
Output Total 200 / 200
Balance 1080 / 1080 760 / 760
[2024-10-15] MEDS: ADVAIR HFA 115/21 MCG INHALER INH ×2 (08:09→20:17)
[2024-10-15 08:30] VITALS: BP 122/80
--- NOTE | 2024-10-15 10:26 | W.PN.UPDATE ---
Update Note
Progress Note Update
Pt seen, chart reviewed. Pt sleeping, has not taken morning meds or eaten breakfast yet per 1:1 staff. Pt drowsy, waking a little intermittently, slightly restless. Wellbutrin SR was stopped, Effexor XR tapered to 225mg per day, Haldol switched
to Risperidone- pt took 2 mg pm dose yesterday. Zyprexa tapered to 15 mg HS. QTc prolonged on last EKG 10/10. Plan is for SNF Hospice; facility will not accept pt on Haldol.
Imp: Dementia, progressive, with behavior disturbance; Hx of Bipolar d/o
Rec: continue to monitor on above psychotropic medication changes. Will follow
[2024-10-15] MEDS: EFFEXOR XR 150 MG PO (12:32)
[2024-10-15] MEDS: RISPERDAL M-TAB (ORALLY DISINTEGRATING) 1 MG PO (12:33)
[2024-10-15] MEDS: KLONOPIN 1 MG PO (12:33)
[2024-10-15] MEDS: LAMICTAL 200 MG PO (12:33)
[2024-10-15] MEDS: PROTONIX 40 MG PO (12:33)
[2024-10-15] MEDS: DESENEX/MITRAZOL/ZEASORB 1 APPLIC TOPICAL ×2 (13:20→21:37)
[2024-10-15] MEDS: RISPERDAL 2 MG PO (14:57)
[2024-10-15 16:12] VITALS: BP 125/78
[2024-10-15] MEDS: TYLENOL 650 MG PO (18:05)
[2024-10-15] MEDS: KLONOPIN 2 MG PO (18:05)
[2024-10-15] MEDS: EFFEXOR XR 75 MG PO (18:05)
[2024-10-15] MEDS: ZYPREXA 5 MG PO (21:34)
[2024-10-15] MEDS: ZYPREXA 10 MG PO (21:34)
[2024-10-16] MEDS: ADVAIR HFA 115/21 MCG INHALER INH ×2 (07:31→19:06)
[2024-10-16] MEDS: KLONOPIN 1 MG PO (07:48)
[2024-10-16] MEDS: LAMICTAL 200 MG PO (07:48)
[2024-10-16] MEDS: EFFEXOR XR 150 MG PO (07:49)
[2024-10-16] MEDS: RISPERDAL M-TAB (ORALLY DISINTEGRATING) 1 MG PO (07:49)
[2024-10-16] MEDS: PROTONIX 40 MG PO (07:49)
[2024-10-16 08:07] VITALS: BP 126/78
[2024-10-16] MEDS: DESENEX/MITRAZOL/ZEASORB 1 APPLIC TOPICAL ×2 (09:13→22:13)
--- NOTE | 2024-10-16 10:28 | W.PN.UPDATE ---
Update Note
Progress Note Update
Pt seen with family present. Pt awake, alert, calm, sitting upright in bed. Pt making some conversation, although not able to give much information. He states he feels okay, offers no complaints, affect is pleasant, states this is his 'shift'.
Family states this is the best pt has looked in a few weeks, much less irritable/angry with medication changes made, and a period of extended sleep. No EPS evident today. Family reports pt will be going to [facility] with [facility]
providing care, including a psychiatrist weekly.
Imp: Dementia, progressive, with behavior disturbance; Hx of Bipolar d/o
Rec: Continue current dose of Risperidone, continue to taper down Zyprexa- will decrease to 10 mg HS. Continue current dose of Effexor XR, continue existing Lamictal and Klonopin.
Pt appears psychiatrically stable for discharge to SNF. Will continue to follow
--- NOTE | 2024-10-16 10:39 | W.PN.HOSP.TC ---
Today's Communication/Plan
-
discharge plan for SNF with hospice (need to be off 1:1 for 24 hour per CM)
Assessment / Plan
Assessment / Plan
64M Advance dementia here with failure to thrive and delirium/agitation.
A/P:
# Progressive dementia with agitation
# Failure to Thrive, poor PO intake
plan for SNF hospice
Psych eval appreciated
Discontinue 1:1 as feasible; patient needs to be off 1:1 24 hours prior to DC to SNF
continue BID Clonazepam (1mg daily, 2 mg QPM)
Zyprexa tapered down to 10mg qhs
Wellbutrin discontinued
Effexor XR BID: 150 mg daily, 75 mg HS
off Haldol (facility won't accept on Haldol), switched to risperidone 1 mg daily, 2 mg @1500
# Phlebitis
Dr Jordan confirmed with morning of 10/13 - patient would not want antibiotics
# Falls, mechanical
Trauma workup negative
PT/OT eval appreciated
# Asthma
# Anxiolytics bipolar dementia
Continue bupropion, Venlafaxine, Lamotrigine
# GERD
Continue omeprazole
DVT PPx not indicated in setting of comfort care
DNR
DW RN / CM
DW and daughter at bedside
Anticipated Discharge: Within 24 hours
Subjective/Interval History
-
Date of Service: October 16, 2024
Objective Data
-
Vital Signs:
Vital Signs
Temp Pulse Resp BP Pulse Ox
36.8 C 83 16 126/78 96
10/16/24 08:07 10/16/24 08:07 10/16/24 08:07 10/16/24 08:07 10/16/24 08:07
I&O
10/15/24 10/16/24 10/17/24
06:59 06:59 06:59
Intake Total 960 / 960 550 / 550
Output Total 200 / 200
Balance 760 / 760 550 / 550
Review of Systems
-
History Source: Patient
All other systems: Reviewed and negative
Physical Exam
-
General: Well Developed, Well Nourished, No Apparent Distress, Comfortable and Conversant
HEENT: Normocephalic and Atraumatic
Respiratory: Clear to Auscultation and Non Labored Respirations; Negative Accessory Resp Muscle Use
Cardiac: Regular Rhythm
GI: Soft, Nontender and Nondistended
Musculoskeletal: No Clubbing and No Cyanosis
Skin: Warm
Neuro: Awake and Alert
Psych: Calm
[2024-10-16 15:18] VITALS: BP 116/75
[2024-10-16] MEDS: RISPERDAL 2 MG PO (15:26)
[2024-10-16] MEDS: KLONOPIN 2 MG PO (17:16)
[2024-10-16] MEDS: EFFEXOR XR 75 MG PO (18:25)
[2024-10-16] MEDS: ZYPREXA 10 MG PO (22:13)
[2024-10-17 00:34] VITALS: BP 113/75
[2024-10-17 07:10] VITALS: BP 102/74
[2024-10-17] MEDS: ADVAIR HFA 115/21 MCG INHALER INH (07:17)
[2024-10-17] MEDS: KLONOPIN 1 MG PO (07:58)
[2024-10-17] MEDS: PROTONIX 40 MG PO (07:58)
[2024-10-17] MEDS: EFFEXOR XR 150 MG PO (07:58)
[2024-10-17] MEDS: RISPERDAL M-TAB (ORALLY DISINTEGRATING) 1 MG PO (07:58)
[2024-10-17] MEDS: LAMICTAL 200 MG PO (07:58)
[2024-10-17] MEDS: DESENEX/MITRAZOL/ZEASORB 1 APPLIC TOPICAL (08:03)
--- NOTE | 2024-10-17 09:46 | CM ---
Addendum entered by Stacey Frank 10/17/24 12:41:
TT to requesting scrip for Klonopin to go with patient, RN updated.
Addendum entered by Stacey Frank 10/17/24 10:45:
Spoke with Ayanna at [facility], they are able to accept today. Address verified. Requested 3 pm ambulance transport.
IMM reviewed with spouse.
Plan: [facility] today
[facility]
Report# [phone]

Addendum entered by Stacey Frank 10/17/24 10:05:
tcb from Ayanna requesting clinicals from the weekend. Clinicals faxed. per Ayanna, [facility] will not se patient until they arrive.
Ayanna will call me back if they can accept today, will need report and fax numbers.
Original Note:
TC to Jean from [facility], all info was received, medical staffing coordinator still reviewing. They will call back.
TC from Ayanna from [facility], to see if patient is ready for d/c.
CM spoke with nursing on floor, patient offf 1:1 > 24 hours, off haldol > 24 hours, no behaviors in the past 24 hours. Plesant this am.
[facility] DNR form completed.
Ambulance transport forms completed.
Await TCB from Ayanna At [facility] and Acts to see if they can accept today.
--- NOTE | 2024-10-17 09:59 | W.PN.HOSP.TC ---
Addendum entered and electronically signed by Katelyn Trevizo MD 10/17/24 13:07:
Discharge time 40 minutes
Original Note:
Today's Communication/Plan
-
see A/P
Assessment / Plan
Assessment / Plan
64M Advance dementia here with failure to thrive and delirium/agitation.
A/P:
# Progressive dementia with agitation (agitation has resolved)
# Failure to Thrive, poor PO intake
plan for SNF hospice
Psych eval appreciated
Discontinued 1:1
continue BID Clonazepam (1mg daily, 2 mg QPM)
Zyprexa tapered down to 10mg qhs
Wellbutrin discontinued
Effexor XR BID: 150 mg daily, 75 mg HS
off Haldol (facility won't accept on Haldol), switched to risperidone 1 mg daily, 2 mg @1500
# Phlebitis
Dr Jordan confirmed with morning of 10/13 - patient would not want antibiotics
# Falls, mechanical
Trauma workup negative
PT/OT eval appreciated
# Asthma
# Anxiolytics bipolar dementia
Continue bupropion, Venlafaxine, Lamotrigine
# GERD
Continue omeprazole
DVT PPx not indicated in setting of comfort care
DNR
DW CM
DW at bedside
Anticipated Discharge: Today
Subjective/Interval History
-
Date of Service: October 17, 2024
Objective Data
-
Vital Signs:
Vital Signs
Temp Pulse Resp BP Pulse Ox
36.3 C 90 16 102/74 95
10/17/24 07:10 10/17/24 07:10 10/17/24 07:10 10/17/24 07:10 10/17/24 07:10
I&O
10/16/24 10/17/24 10/18/24
06:59 06:59 06:59
Intake Total 550 / 550 1080 / 1080
Balance 550 / 550 1080 / 1080
Review of Systems
-
History Source: Patient
All other systems: Reviewed and negative
Physical Exam
-
General: Well Developed, Well Nourished, No Apparent Distress, Comfortable and Conversant
HEENT: Normocephalic and Atraumatic
Respiratory: Clear to Auscultation and Non Labored Respirations; Negative Accessory Resp Muscle Use
Cardiac: Regular Rhythm
GI: Soft, Nontender and Nondistended
Musculoskeletal: No Clubbing and No Cyanosis
Skin: Warm
Neuro: Awake and Alert
Psych: Calm
Data Reviewed
-
Diagnostic Radiology: Report Reviewed by me
Labs: Labs Reviewed by me
--- NOTE | 2024-10-17 12:59 | W.DCSUMMARY ---
Discharge Summary
Discharge Data
Date of Admission: 10/10/24
Date of Discharge: 10/17/24
Total time spent discharging patient (in min): 40
-
Pending Results: No
Hospital Course
Principal Diagnosis:
Progressive dementia with agitation (agitation has resolved)
Failure to thrive, poor oral intake
Chronic Diagnoses:�
Asthma
Bipolar with dementia
GERD, on omeprazole
Consultations:�
Psychiatry
Procedures:�
None
Clinical course:�
This is a 64-year-old male with past medical history as stated above, who presented with failure to thrive and delirium/agitation.
Problem 1:
Progressive dementia with agitation (agitation has resolved), with failure to thrive/ poor oral intake.
Goals of care was discussed with his family, and the plan is to transition him to SNF under hospice.
His mood stabilized and had been off one-to-one.
He can continue Clonazepam BID (1mg daily, 2 mg QPM), Zyprexa 10 mg HS, Effexor XR BID (150 mg daily, 75 mg HS), and risperidone BID (1 mg daily, 2 mg @1500), going forward.
As for the rest of his medical problems, they were stable during his hospital stay.
Discharge Plan
-
Patient Disposition: Fpc/SNF
Discharge Diagnosis/Procedures: Severe dementia;
Failure to Thrive with poor oral intake
Condition: Fair
Diet: As tolerated
Additional Diets: for pleasure
Activity: As tolerated
Driving Restrictions: No driving
Other Services: Hospice
Referrals:
Anthony Suarez MD [Family Provider, Family Practice] - in less than 1 week
Additional Discharge Medication Instructions: Continue Clonazepam twice daily (1mg daily, 2 mg QPM);
Continue Zyprexa 10 mg at night;
Continue Effexor XR twice daily (150 mg daily, 75 mg at night);
Continue risperidone twice daily (1 mg daily, 2 mg @1500)
Prescriptions:
New
olanzapine 10 mg Tablet
10 mg PO HS Qty: 30 0RF
risperidone 2 mg Tablet
2 mg PO DAILY@1500 Qty: 30 0RF
risperidone 1 mg Tablet,Disintegrating
1 mg PO DAILY Qty: 30 0RF
venlafaxine 75 mg Capsule,Extended Release 24hr
75 mg PO DAILY@1900 Qty: 30 0RF
Continued
omeprazole 40 MG capsule,delayed release(DR/EC)
40 mg PO DAILY
venlafaxine 75 MG capsule,extended release 24hr
150 mg PO DAILY
albuterol sulfate [Ventolin HFA] 18 GM HFA aerosol inhaler
2 puff inhalation R Q4HPRN PRN (Reason: sob/wheezing) Qty: 0
lamotrigine 200 mg tablet
200 mg PO DAILY
albuterol sulfate 2.5 mg /3 mL (0.083 %) Solution For Nebulization
2.5 mg INHALATION R Q6HPRN PRN (Reason: sob)
clonazepam 1 MG tablet
1 mg PO DAILY Qty: 7 0RF
clonazepam 1 MG tablet
2 mg PO QPM Qty: 7 0RF
Changed
polyethylene glycol 3350 [Miralax] 17 gram Powder In Packet
8.5 g PO DAILY PRN (Reason: Constipation) Qty: 30 0RF
Discontinued
venlafaxine 75 mg capsule,extended release 24hr
75 mg PO BID@1300,1900
bupropion HCl 200 mg tablet sustained-release 12 hr
200 mg PO DAILY
fluticasone propion-salmeterol [Wixela Inhub] 250-50 mcg/dose Blister With Device
1 inh INHALATION R BID
olanzapine 10 mg Tablet
30 mg PO HS
Medical Marijuana
1 cap PO HSPRN PRN (Reason: sleep/anxiety)
Discharge Orders:
Discharge Patient (As Directed); Ordered 10/17/24
Ordered By: Katelyn Trevizo
Discharge Date and Time
Print Language: MAURITIAN
[2024-10-17] MEDS: RISPERDAL 2 MG PO (13:36)
--- NOTE | 2024-10-17 13:45 | PTCARENOTE ---
This RN called to give report to [facility]. Voice mail left with call back number provided. Awaiting return phone call
[2024-10-17 14:55] VITALS: BP 119/87
--- NOTE | 2024-10-17 15:41 | PTCARENOTE ---
Patient discharged to [facility]. Return phone call received from facility for report. , Christine updated via phone call. Patient had no belongings on discharge. Paperwork sent with scripts, to facility via Acute Care transport.
== END 2024-10-17 15:44 | disposition hospice, inpatient (51) ==
LOC: 4 WEST ACU 19:36
PROVIDERS: Nurse Practitioner; Nurse Practitioner Family; ADMITTING PHYSICIAN Hospitalist; ATTENDING PHYSICIAN Internal Medicine; CONSULT PHYSICIAN Psychiatry & Neurology Psychiatry; EMERGENCY PHYSICIAN Student in an Organized Health Care Education/Training Program; FAMILY PHYSICIAN Family Medicine
DX: F03.911 Unspecified dementia, unspecified severity, with agitation (principal); R45.1 Restlessness and agitation; F31.9 Bipolar disorder, unspecified; R62.7 Adult failure to thrive; Z51.5 Encounter for palliative care; F41.8 Other specified anxiety disorders; J45.909 Unspecified asthma, uncomplicated; E78.00 Pure hypercholesterolemia, unspecified; I10 Essential (primary) hypertension; G47.33 Obstructive sleep apnea (adult) (pediatric); K21.9 Gastro-esophageal reflux disease without esophagitis; Z96.612 Presence of left artificial shoulder joint; Z87.891 Personal history of nicotine dependence; Z91.81 History of falling
CPT/HCPCS: 70450; 72125; 73502; 80048; 80053; 81003; 81015; 84484; 85025; 85027; 87070; 87086; 93005; 94640; 94660; 97116; 97163; 97167; 97530; 99285; G0378

== ENCOUNTER 2024-11-12 06:38 | Inpatient (IN) | payer MEDICARE, SELFPAY ==
[2024-11-12] VITALS (12 sets, daily range): BP systolic 117–134; BP diastolic 78–98; PULSE 97; O2SAT 97; BMI 31.3; BMI 30.5
[2024-11-12 02:12] LABS: Hematocrit 33.8 % (39.0-52.0); Hemoglobin 10.6 g/dL (13.0-18.0); Mean Corp Hgb Conc. 31.4 g/dL (33.0-37.0); Mean Corpuscular Volume 76.5 fL (80.0-94.0); Nucleated Red Blood Cells % 0 % (-); Platelet Count 275 10^3/uL (130-400); Red Cell Dist. Width 16.9 % (11.5-14.5)
[2024-11-12 02:30] LABS: ALT (SGPT) 19 U/L (0-50); AST (SGOT) 20 U/L (17-59); Albumin 3.9 g/dl (3.5-5.0); Alkaline Phosphatase 88 U/L (38-126); Blood Urea Nitrogen 11 mg/dl (9-20); Calcium 9.6 mg/dl (8.4-10.2); Carbon Dioxide 18 mmol/L (22-30); Chloride 113 mmol/L (98-107); Estimated Creatinine Clearance 97 ml/min; Glucose 142 mg/dl (70-99); Potassium 4.5 mmol/L (3.5-5.1); Sodium 140 mmol/L (135-145); Total Protein 6.7 g/dl (6.3-8.2); eGFR > 60.00
[2024-11-12 02:40] LABS: Troponin I 0.014 ng/ml
--- NOTE | 2024-11-12 05:09 | ED.GENMED ---
History of Present Illness
General
Chief Complaint: Breathing Problem
Source: patient
Time Seen by Provider: 11/12/24 04:51
History of Present Illness
History of Present Illness:
64-year-old male presents to the emergency room complaining of increased work of breathing, shortness of breath. Patient is here with his who provides most of the history given he has dementia. Patient had a hospitalization here at [facility]
approxi-1 month ago for altered mental status and amatory dysfunction. Medications were adjusted and he was ultimately discharged to a shelter facility. He has been home from the SNF just a couple days but noted increased work of
breathing. Patient does have a history of cardiomyopathy and left bundle branch block. does not know what type of cardiomyopathy he has. He has been prescribed diuretics but they do not believe he has had a history of CHF per se. Patient
denies any chest pain. He denies any fever or chills. He does have a history of asthma
Past History
Past History
ED Past Medical History: HTN, Hypercholesterolemia and Psychiatric (Bipolar disorder, ADHD, depression)
ED Past Surgical History: Orthopedic
Social History
Tobacco: Smoker (Patient states he smokes one or 2 cigarettes a week)
Alcohol: Occasional
Drug: None
Personal:
Living: with family
Employment: Employed
Family History
Family History: Other (Noncontributory)
Phy Exam
Physical Exam
Physical Exam:
General: Awake, Alert, Oriented X3. Appears stated age, moderate increased work of breathing
Vitals: Tachypneic
Head: Atraumatic
Eyes: Pupils equal, EOMI
Throat: Airway intact, no exudates
Neck: Trachea midline
Lungs: Rales bilaterally
Heart: Regular rate, no murmurs
Abd: Soft, Nontender, No pulsatile mass
Neuro: Nonfocal
Skin: Warm, dry, no rash
Extremities: pulses equal b/l, 1+ edema
Scores
Heart Failure Risk
Heart Failure Risk Score: Yes
History of Stroke or TIA: No
History of intubation for respiratory distress: No
Heart rate on ED arrival >/= 110: Yes
SaO2 <90% on arrival on room air: No
HR >/=110 during 3min walk test (or too ill to perform test): Yes
ECG has acute ischemic changes: No
Urea >/=12mmol/L (BUN 33.6mg/dL): No
Serum CO2>/=35mmol/L: No
Troponin I or T elevated to GA Level (0.4mg/dL): No
NT-proBNP >/=5,000ng/L (5,000pg/ml): No
HF Risk Score: 2
Admission Status: MEDIUM RISK 9.2% Consider observation or discharge to home with homecare & f/u visit to PCP/Cleaners, or SNF for treatment
Course
Orders/Labs/Results
Orders:
Orders
11/12/24 01:56
Electrocardiogram (*1) Urgent
Reason for Study: Other
Other Reason for Exam: Respiratory Distress
Cardiac Monitoring- Treatment ONCE
EKG- Treatment ONCE
IV Insert/Care/Rem.- Treatment PRN
CR Chest - 2 Views Urgent
Comment:
Reason For Exam: respiratory distress
O2 Therapy [RESP] Urgent
Titrate/Wean O2 to maintain O2 sat greater than (%): 93
Special Instructions: TO MAINTAIN CONTINUOUS O2 SATS >/= 93%
Pulse Ox/cont/shift [RESP] Urgent
Quantity: 1
Special Instructions: continuous pulse ox
11/12/24 02:04
Complete Blood Count/With Diff Urgent
Comprehensive Metabolic Panel Urgent
NT-proBNP Urgent
Troponin I Urgent
11/12/24 05:04
Furosemide [Lasix] 40 mg IV NOW STA
11/12/24 05:14
Venous Blood Gas Urgent
%Oxygen/Room Air: 4l
Abnormal Lab Results
11/12/24 11/12/24
02:04 05:14
RBC 4.42 L 10^6/uL
(4.70-6.10)
Hgb 10.6 L g/dL
(13.0-18.0)
Hct 33.8 L %
(39.0-52.0)
MCV 76.5 L fL
(80.0-94.0)
MCH 24.0 L pg
(27.0-31.0)
MCHC 31.4 L g/dL
(33.0-37.0)
RDW 16.9 H %
(11.5-14.5)
Lymphocytes % 20.1 L %
(20.5-51.1)
VBG pO2 68 H mmHg
(30-50)
VBG HCO3 20.6 L mmol/L
(22-27)
Chloride 113 H mmol/L
(98-107)
Carbon Dioxide 18 L mmol/L
(22-30)
Glucose 142 H mg/dl
(70-99)
11/12/24 02:04
11/12/24 02:04
Vital Signs
Initial and Last Documented VS:
Initial Vital Signs
Temp Pulse Resp BP Pulse Ox
99 F 101 22 124/84 97
11/12/24 01:57 11/12/24 01:57 11/12/24 01:57 11/12/24 01:57 11/12/24 01:57
Last Documented Vital Signs
Temp Pulse Resp BP Pulse Ox
99 F 88 24 130/90 95
11/12/24 01:57 11/12/24 05:16 11/12/24 04:15 11/12/24 05:16 11/12/24 05:09
MDM/Problems Addressed
Differential Diagnosis Includes:
CHF, symptomatic anemia, asthma exacerbation, pneumonia
MDM/Problems Addressed:
Patient presents with increased work of breathing shortness of breath and oxygen requirements. Workup here suggestive of heart failure. Patient's BNP is quite elevated. Chest x-ray consistent with pulmonary edema. 40 mg of Lasix administered.
The patient does have some increased work of breathing I do not believe it necessitates BiPAP or other noninvasive ventilation. Hospitalization for monitoring of improvement and perhaps further IV diuretic
*Radiology
Radiology exam reviewed: preliminary read by ED provider (Pulmonary edema lab review of the patient's chest x-ray)
*Pulse Oximetry
SaO2: 95
Nasal Cannula flow liters per minute: 2
Oxygen Mode of Delivery: Room air
Patient hypoxic: no
*EKG
Interpreted by ED Provider?: Yes
Heart Rate: 93
Rhythm: sinus
QRS Pattern: left bundle branch block
Ischemia: non-specific ST changes
*Machine Plaster Mixer Interpretation
Rate: normal
Rhythm: sinus
*Critical Care Note
Total Time (30-74mins, 75-104mins- exclusive of procedures): Not Applicable
Patient Management
Social determinants of health affecting care: Living situation
Discussion with other providers: Hospitalist
ED Attending Note
-
Portions of this chart may have been created with voice recognition software.� Occasional wrong word or��sound alike� substitutions may have occurred due to the inherent limitations of voice recognition software.
Discharge Plan
Departure
Patient Disposition: Admit
Date of Disposition: 11/12/24
Time of Disposition: 05:09
Admit to: Med/Surg
Presentation/result/management discussed w/ accepting MD/DO: Hospitalist
Condition: Fair
Discharge Problem:
CHF (congestive heart failure)
Prescriptions:
No Action
omeprazole 40 MG capsule,delayed release(DR/EC)
40 mg PO DAILY
venlafaxine 75 MG capsule,extended release 24hr
150 mg PO DAILY
albuterol sulfate [Ventolin HFA] 18 GM HFA aerosol inhaler
2 puff inhalation R Q4HPRN PRN (Reason: sob/wheezing) Qty: 0
lamotrigine 200 mg tablet
200 mg PO DAILY
albuterol sulfate 2.5 mg /3 mL (0.083 %) Solution For Nebulization
2.5 mg INHALATION R Q6HPRN PRN (Reason: sob)
olanzapine 10 mg Tablet
10 mg PO HS Qty: 30 0RF
risperidone 2 mg Tablet
2 mg PO DAILY@1500 Qty: 30 0RF
risperidone 1 mg Tablet,Disintegrating
1 mg PO DAILY Qty: 30 0RF
venlafaxine 75 mg Capsule,Extended Release 24hr
75 mg PO DAILY@1900 Qty: 30 0RF
polyethylene glycol 3350 [Miralax] 17 gram Powder In Packet
8.5 g PO DAILY PRN (Reason: Constipation) Qty: 30 0RF
clonazepam 1 MG tablet
1 mg PO DAILY Qty: 7 0RF
clonazepam 1 MG tablet
2 mg PO QPM Qty: 7 0RF
Interventions
Interventions:
*Risk Screen - Suicide Last Done: 11/12/24 01:57
*General Assessment Last Done: 11/12/24 01:57
*Neglect/Abuse Screening Last Done: 11/12/24 01:57
*ED- Fall Risk Assessment Last Done: 11/12/24 01:57
*ED COVID-19 Vaccine History Last Done: 11/12/24 01:57
ED- Cardiac Assessment Last Done: 11/12/24 01:57
ED- Pulmonary Assessment Last Done: 11/12/24 01:57
Discharge Date and Time
Print Language: INDONESIAN
[2024-11-12] MEDS: LASIX 40 MG IV ×2 (05:16→15:09)
[2024-11-12 05:32] LABS: Venous Blood Gas B.E. -5.1 mmol/L (-4 to +4); Venous Blood Gas O2 Sat % 93.9 %
--- NOTE | 2024-11-12 05:38 | HPS.HSE ---
Family Physician
-
Family Physician: NOT KNOW UNKNOWN - PT DOES
Chief Complaint
-
Shortness of breath
History of Present Illness
This is a 64-year-old male with past medical history significant for depression, bipolar, anxiety, asthma, DERIAN on CPAP, GERD, presenting to the emergency department with worsening dyspnea on exertion and shortness of breath over the last few days.
Patient was last admitted to the hospital in September with failure to thrive, severe dementia, altered mental status and was to be placed on hospice care. However with psychiatry help and med management patient was placed on risperidone and had
significant improvement/type by the time he was discharged from the hospital and after returning home from rehab patient became completely lucid and is currently alert and oriented x 3 and able to provide some history and insight into his medical
condition.
Patient reported that while he was in the hospital due to his inability to speak and altered mental status he was unable to describe his symptoms but he says that he has been having dyspnea on exertion or shortness of breath since then. Even at
rehab he continues to have dyspnea on exertion and shortness of breath. In the past inhalers has helped but more recently he has no improvement despite inhaler use. He denies having any cough. He denies any wheezing. Spouse reports increased
ankle puffiness. He denies orthopnea or PND. Today he felt like there was some pressure on his chest without any radiation nausea vomiting or diaphoresis. He has been unable to use his CPAP machine due to his increased work of breathing. He
denies any fevers or chills. Spouse reports history of 'cardiomyopathy'. No known history of CAD.
In the emergency department he was afebrile, blood pressure was 120/85 with a pulse of 94 and he was satting 95% on 2 L. Temperature was 99F max. ECG shows a normal sinus rhythm with known left bundle branch block and no other acute ischemic
changes. His troponin was negative. His BNP was elevated at 4900.
CBC was unremarkable. Electrolytes BUN and creatinine were normal. His chest x-ray shows increased interstitial markings and some diffuse ground glass opacities which could be consistent with pulmonary edema.
Medical History
Past Medical History
Past Medical History: Reports Other
Additional Past Medical History:
hypertension
hyperlipidemia
asthma
anxiety/depression
bipolar
GERD
DERIAN on CPAP
obesity
former tobacco use
LBBB
Past Surgical History: Reports Other
Additional Past Surgical History:
Rt RTC 2017
Jaw
left shoulder replacement 2018
bunion surg
Left Reverse total shoulder 04/2019
Left knee scope PMM (DOS 09.25.2020)
Cath
eft Rotator Cuff 12/2020
Social History
Tobacco: Former Smoker (rarely smoked tobacco in past )
Alcohol: Occasional (3x week with have a few beers, alcohol abuse history )
Drug: Marijuana (daily smokes )
Personal:
Living: With Family
Employment: Disabled
Family History
Family History: Not pertinent
Allergies / Home Medications
Allergies reflects when Allergies were last updated in [employer].
Home Medications with original date entered in [employer]
Allergy/Medication List:
Allergies
Allergy/AdvReac Type Severity Reaction Status Date / Time
No Known Drug Allergies Allergy - Verified 10/10/24 09:38
environmental Allergy sinus Uncoded 10/10/24 09:38
congestion,
'lungs
swell'asthma
Home Medications
omeprazole 40 mg capsule,delayed release 40 mg PO DAILY Gastrointestinal Issue 05/31/10
albuterol sulfate 90 mcg/actuation aerosol inhaler (Ventolin HFA) 2 puff inhalation R Q4HPRN PRN sob/wheezing ##0 03/22/19
venlafaxine 75 mg capsule,extended release 24 hr 150 mg PO AM, 75mg PO PM depression 03/22/19
clonazepam 1 mg tablet 1 mg PO DAILY, 2mg PO
clonazepam 1 mg tablet 2 mg PO QPM
lamotrigine 200 mg tablet 200 mg PO DAILY depression 07/01/23
polyethylene glycol 3350 17 gram oral powder packet (Miralax) 8.5 g PO DAILY Constipation 07/01/23
Medical Marijuana 1 cap PO HSPRN PRN sleep/anxiety 10/10/24
albuterol sulfate 2.5 mg/3 mL (0.083 %) solution for nebulization 2.5 mg inhalation R Q6HPRN PRN sob 10/10/24
fluticasone 250 mcg-salmeterol 50 mcg/dose blistr powdr for inhalation (Wixela Inhub) 1 inh inhalation R BID 10/10/24
Risperidone 1 mg tablet, 1 mg p.o. every morning, 2 mg p.o. q. afternoon
Olanzapine 10 mg tablets, 10 mg p.o. at bedtime
Review of Systems
-
Unable to obtain full review of systems at this time due to: Dementia
History Source: Family
Constitutional: Reports No Symptoms
EENT: Reports No Symptoms
Respiratory: Reports Trouble Breathing
Cardiac: Reports No Symptoms
Abdomen/GI: Reports No Symptoms
: Reports No Symptoms
Musculoskeletal: Reports No Symptoms
Skin: Reports No Symptoms
Neurological: Reports No Symptoms
Endocrine: Reports No Symptoms
Hematologic/Lymphatic: Reports No Symptoms
Psych: Reports No Symptoms
Physical Exam
Vital Signs
Vital Signs
Temp Pulse Resp BP Pulse Ox
99 F 88 24 130/90 95
11/12/24 01:57 11/12/24 05:16 11/12/24 04:15 11/12/24 05:16 11/12/24 05:09
Physical Exam
General: Well Developed, Well Nourished, No Apparent Distress, Respiratory Distress and Obese
HEENT: NormoCephalic, Moist mucous membranes and Atraumatic
Respiratory: Clear, Wheezes and Decreased Breath Sounds (Decreased breath sounds at the bases bilaterally, prolonged expiratory phase)
Cardiac: S1/S2 and Regular Rhythm; No Murmur, Rub or Gallop
Breast: Deferred by me
GI: Soft, Non Tender, Non Distended and Normal Bowel Sounds; No Organomegaly
Rectal: Deferred by Provider
Genito-urinary: Deferred by me
Musculoskeletal: No Clubbing, No Cyanosis, Edema, Left Lower Extremity (Trace ankle) and Edema, Right Lower Extremity (Trace ankle)
Skin: Warm
Neuro: Awake, AO x 3 and Nonfocal/grossly intact
Psych: Calm, Intact Judgment/Insight and Other (restless )
Laboratory Results
-
11/12/24 02:04
11/12/24 02:04
Laboratory Results
Total Bilirubin 0.5 mg/dl (0.2-1.3) 11/12/24 02:04
AST 20 U/L (17-59) 11/12/24 02:04
ALT 19 U/L (0-50) 11/12/24 02:04
Alkaline Phosphatase 88 U/L (38-126) 11/12/24 02:04
Troponin I 0.014 ng/ml 11/12/24 02:04
Data Reviewed
-
Diagnostic Radiology: Image Personally Visualized and interpreted
Medical Tests (Nuc Med, Echo, EKG etc): Image Personally Visualized and interpreted
Lab Data: Labs Reviewed by me
Old Records: Reviewed
Impression/Plan
-
IMPRESSION:
This is a 64-year-old with past medical history significant for dementia, bipolar disorder obstructive sleep apnea, asthma, presenting to the emergency department with worsening dyspnea on exertion over the last several weeks. Patient states that
his asthma appears to have been getting worse and he feels that he has been treated due to his recent episodes of altered mental status and inability to express his symptoms adequately. More recently he has been able to express his symptoms and has
been getting rescue inhaler without any improvement. He has dyspnea and today has significant chest tightness pressure that was improved with oxygen. In the emergency department he was hypoxic requiring 2 L. Chest x-ray shows shows some ground
glass opacities. Auscultation shows bilateral and expiratory wheezes with prolonged expiratory phase and decreased breath sounds at the bases but no crackles. His BNP is elevated at over 4000. His ECG is unchanged from prior with a left bundle
and no new ischemic findings. Troponin was negative. Suspect patient multifactorial respiratory distress stemming from CHF as well as asthma/COPD exacerbation.
PLAN:
CHF exacerbation -history of cardiomyopathy according to family members, last echo shows her EF was preserved with ejection fraction of 55% and normal diastolic function. No history of ischemic cardiomyopathy. BNP today elevated over 4000. Will
be secondary to pulmonary hypertension but more likely due to CHF.
-Admit to telemetry
-Will start with Lasix 40 mg IV twice daily for now as BP tolerates
-Check echocardiogram
-Check TSH
-Daily weights, ins and outs and a low-salt diet for now
-Cardiology consultation
Asthma exacerbation -unclear which came first to possible that's had prolonged asthma that has worsened his cardiopulmonary status and develop some CHF. However he clearly has prolonged expiratory phase and end expiratory wheezing suggestive of
small airway narrowing.
- Will start with Solu-Medrol 40 IV every 12 and then taper to oral soon as possible
- DuoNebs [id number] for now
- Continue continue his home inhaler
-No cough or purulent sputum production, no indication for antibiotics
DERIAN on CPAP�patient has not been tolerating his CPAP due to he is chest tightness over the last several days
- Patient will not tolerate CPAP for now so holding off.
-Maintain supplemental oxygen to keep sats greater than 95%
Behavioral -overall patient has had a significant improvement in his mental status compared to his last admission. He is alert and oriented and has insight. He has asked all questions appropriately. He is able to carry on minimal conversation
with family members and hospital staff as well as myself. Family attributes most of these improvements to initiation of risperidone.
-Continue risperidone 1 mg a.m., 2 mg p.m.
� Continue his clonazepam 1mg AM and at 2mg PM
- Continue venlafaxine 150 every morning and 75 every afternoon
� Continues lamotrigine 200 daily
� Continue olanzapine 10 mg
DVT prophylaxis�Lovenox subcu
CODE STATUS�DNR/DNI. At this point patient is holding off on hospice although still probably 6 comfort. Avoid invasive procedures.
[2024-11-12] MEDS: DUONEB 3 ML INH ×4 (06:16→19:38)
[2024-11-12] MEDS: SOLU-MEDROL PF 40 MG IV ×2 (06:16→17:43)
[2024-11-12] MEDS: FLUSH (NSS) 1 FLUSH IV (06:21)
--- NOTE | 2024-11-12 06:56 | EDRN ---
previous caustic cresylate shift superintendent nurse Lizet RN called the receiving unit and notified them that paper report was going to sent up
[2024-11-12] MEDS: ADVAIR HFA 115/21 MCG INHALER 2 PUFF INH ×2 (07:52→19:38)
[2024-11-12] MEDS: DUONEB INH ×2 (07:52→08:02)
[2024-11-12] MEDS: LAMICTAL 200 MG PO (08:57)
[2024-11-12] MEDS: PROTONIX 40 MG PO (09:01)
[2024-11-12] MEDS: EFFEXOR XR 150 MG PO (09:01)
[2024-11-12] MEDS: RISPERDAL M-TAB (ORALLY DISINTEGRATING) 1 MG PO (09:02)
--- NOTE | 2024-11-12 09:44 | CM ---
Addendum entered by Delaney Locke 11/12/24 10:01:
Exhauster/Homemaker resources provided to pt.
Original Note:
Met with pt at chairside. IA completed. Lives with in single story home, no steps at entrance. States he is independent with ADLs but may need to hire someone soon. 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 No hx of HH/VN. Has
been in a SNF but can't recall which one. No O2 at home. DME: Rollator, SPC , CPAP, grab bars, toilet rails and raised toilet seats. No insecurities identified. Confirmed PCP, Rx, insurances and drug coverage.
VN- patient wants to speak to his before accepting a referral
PCP: Anthony Suarez
Rx: [facility]
Plan: Home, possible VN
--- NOTE | 2024-11-12 12:11 | W.PN.HOSP.TC ---
Today's Communication/Plan
-
IV steroids
IV lasix
ECHO on thursday
Cont home meds
Assessment / Plan
Assessment / Plan
General: Well Developed, Well Nourished, No Apparent Distress,
HEENT: NormoCephalic, Moist mucous membranes and Atraumatic
Respiratory: Decreased aeration with mild expiratory wheezing, NC noted, not tachypneic, able to speak in full sentences
Cardiac: S1/S2 and Regular Rhythm; No Murmur, Rub or Gallop
Breast: Deferred by me
GI: Soft, Non Tender, Non Distended and Normal Bowel Sounds; No Organomegaly
Rectal: Deferred by Provider
Genito-urinary: Deferred by me
Musculoskeletal: No Clubbing, No Cyanosis, Edema, Left Lower Extremity (Trace ankle) and Edema, Right Lower Extremity (Trace ankle)
Skin: Warm
Neuro: Awake, AO x 3 and Nonfocal/grossly intact
Psych: Calm,
This is a 64-year-old with past medical history significant for dementia, bipolar disorder obstructive sleep apnea, asthma, presenting to the emergency department with worsening dyspnea on exertion over the last several weeks. Patient states that
his asthma appears to have been getting worse and he feels that he has been treated due to his recent episodes of altered mental status and inability to express his symptoms adequately. More recently he has been able to express his symptoms and has
been getting rescue inhaler without any improvement. He has dyspnea and today has significant chest tightness pressure that was improved with oxygen. In the emergency department he was hypoxic requiring 2 L. Chest x-ray shows shows some ground
glass opacities. Auscultation shows bilateral and expiratory wheezes with prolonged expiratory phase and decreased breath sounds at the bases but no crackles. His BNP is elevated at over 4000. His ECG is unchanged from prior with a left bundle
and no new ischemic findings. Troponin was negative. Suspect patient multifactorial respiratory distress stemming from CHF as well as asthma/COPD exacerbation.
PLAN:
Acute hypoxic respiratory insufficiency multifactorial
-Plan as below
-Wean O2 as tolerated
Acute on chronic diastolic heart failure exacerbation
Severe pulmonary hypertension
-Will start with Lasix 40 mg IV twice daily for now as BP tolerates
-Check echocardiogram on Thursday
-TSH normal
-Daily weights, ins and outs and a low-salt diet for now
-Chest x-ray with suggestive of interstitial pulmonary edema
-Cardiology consultation
Asthma exacerbation
- Continue with IV steroids 40 mg every 12 -can start weaning down in 12h
- DuoNebs [id number] for now
- Continue continue his home inhaler
- No cough or purulent sputum production, no indication for antibiotics
DERIAN on CPAP�patient has not been tolerating his CPAP due to he is chest tightness over the last several days
-Patient will not tolerate CPAP for now so holding off.
-Maintain supplemental oxygen to keep sats greater than 95%
Bipolar disorder
Suspected cognitive impairment unclear if with behavioral disturbances- currently seems mentation clear awake alert oriented
-Continue risperidone 1 mg a.m., 2 mg p.m.
�Continue his clonazepam 1mg AM and at 2mg PM
-Continue venlafaxine 150 every morning and 75 every afternoon
�Continues lamotrigine 200 daily
�Continue olanzapine 10 mg
DVT prophylaxis�Lovenox subcu
CODE STATUS�DNR/DNI.
Anticipated Discharge: > 48 hours
Subjective/Interval History
-
Date of Service: November 12, 2024
states of feeling short of breath
on oxygen
Objective Data
-
Labs:
Laboratory Results
11/12/24
02:04
WBC 8.0
Hgb 10.6 L
Hct 33.8 L
Plt Count 275
Sodium 140
Potassium 4.5
Chloride 113 H
Carbon Dioxide 18 L
BUN 11
Creatinine 0.8
Glucose 142 H
Calcium 9.6
Total Bilirubin 0.5
AST 20
ALT 19
Alkaline Phosphatase 88
Vital Signs:
Vital Signs
Temp Pulse Resp BP Pulse Ox
97.9 F 87 16 120/90 98
11/12/24 08:00 11/12/24 11:36 11/12/24 11:36 11/12/24 08:00 11/12/24 11:36
I&O
11/11/24 11/12/24 11/13/24
06:59 06:59 06:59
Output Total 530 / 530 400 / 400
Balance -530 / -530 -400 / -400
Data Reviewed
-
Total Time Spent with Patient (in minutes): 55
[2024-11-12] MEDS: KLONOPIN 1 MG PO (12:40)
[2024-11-12] MEDS: RISPERDAL 2 MG PO (15:09)
--- NOTE | 2024-11-12 16:15 | CON.CAR ---
Consultation
Consultation Request
Date/Time Consultation Requested: 11/12/24
Date/Time Consultation Performed: 11/12/24
Requesting Provider: Dr. Lyon
Performing Provider: Dr. Perales
Reason for Consultation: SOB, concern for CHF
Medical History
-
Chief Complaint: SOB
History of Present Illness:
I had the pleasure to meet your patient, Karan Cortes for evaluation of shortness of breath and concern for heart failure. Patient denies outpatient cardiac care or recent evaluation. Patient has a history of bipolar disorder, hypertension,
hyperlipidemia and tobacco dependence. He he was hospitalized at [facility] in September for progressive dementia and agitation with failure to thrive and discharged to a group home facility. Cardiology was not involved at the time of
that hospitalization. He is overall a difficult historian stating that he has a history of asthma and felt that his acute shortness of breath was related to asthma. Per chart review, he was hospitalized at [facility] in July 2023 with a
history of a 'nonischemic cardiomyopathy, EF 45%, left bundle branch block, sleep apnea on CPAP, marijuana/tobacco use, and moderate alcohol use. He had a cardiac catheterization in August 2020 which found left dominant system with a 50% OM1 stenosis
and otherwise luminal irregularities with no obstructive coronary artery disease. Last echocardiogram 06/18/2022 found normal LV size with low normal LV systolic function estimated 50-55% with mild mitral regurgitation. Estimated pulmonary artery
systolic pressure at that time was 21 mmHg assuming a right atrial pressure of 3 mmHg.
.
In the ER he was found to be anemic with hemoglobin 10.6, white blood cell count normal. Platelets 275,000. Creatinine normal with BUN and creatinine 11/0.8. Sodium potassium normal, sodium 140, potassium 4.5. LFTs are within normal limits.
Cardiac troponin was 0.017 and then 0.014. proBNP was 4970. Chest x-ray had findings consistent with heart failure. He was placed on IV Lasix. Currently he is sitting out of bed to chair following nebulizer treatment. He denies shortness of
breath or wheezing at this time. No chest pain or pressure.
Past Medical History:
hypertension
hyperlipidemia
asthma
anxiety/depression
bipolar
GERD
DERIAN on CPAP
obesity
former tobacco use
LBBB
Past Surgical History:
left shoulder replacement 2018
bunion surg
Left Reverse total shoulder 04/2019
Left knee scope PMM (DOS 09.25.2020)
Cath 2020
left Rotator Cuff 12/2020
Past Medical History
Past Medical History: Other
Past Surgical History: Other (See HPI)
Social History
Tobacco: Former Smoker
Alcohol: Other (Moderate alcohol use reported in the past; patient reports that he has 6 beers a week)
Drug: Other (Marijuana use in the past)
Personal:
Employment: Retired
Family History
Family History: Reviewed & Not Pertinent
Allergies / Home Medications
Allergy/AdvReac Type Severity Reaction Status Date / Time
animal dander Allergy sinus Verified 11/12/24 01:53
congestion,
'lungs
swell'asthma
grass pollen Allergy sinus Verified 11/12/24 01:53
congestion,
'lungs
swell'asthma
house dust Allergy sinus Verified 11/12/24 01:53
congestion,
'lungs
swell'asthma
pollen extracts Allergy sinus Verified 11/12/24 01:53
congestion,
'lungs
swell'asthma
�Medication �Instructions �Recorded �Confirmed �Type
omeprazole 40 mg capsule,delayed 40 mg PO DAILY Gastrointestinal 05/31/10 11/12/24 History
release Issue
albuterol sulfate 90 mcg/actuation 2 puff inhalation R Q4HPRN PRN 03/22/19 11/12/24 History
aerosol inhaler (Ventolin HFA) sob/wheezing ##0
venlafaxine 75 mg capsule,extended 150 mg PO DAILY depression 03/22/19 11/12/24 History
release 24 hr
lamotrigine 200 mg tablet 200 mg PO DAILY depression 07/01/23 11/12/24 History
albuterol sulfate 2.5 mg/3 mL 2.5 mg inhalation R Q6HPRN PRN sob 10/10/24 11/12/24 History
(0.083 %) solution for nebulization
clonazepam 1 mg tablet 1 mg PO DAILY anxiety #7 tabs 10/17/24 11/12/24 Rx
clonazepam 1 mg tablet 2 mg (2 x 1 mg) PO QPM anxiety #7 10/17/24 11/12/24 Rx
tabs
olanzapine 10 mg tablet 10 mg PO HS #30 tabs 10/17/24 11/12/24 Rx
polyethylene glycol 3350 17 gram 8.5 g PO DAILY PRN Constipation 10/17/24 11/12/24 Rx
oral powder packet (Miralax) #30 ea
risperidone 1 mg disintegrating 1 mg PO DAILY #30 tabs 10/17/24 11/12/24 Rx
tablet
risperidone 2 mg tablet 2 mg PO DAILY@1500 #30 tabs 10/17/24 11/12/24 Rx
venlafaxine 75 mg capsule,extended 75 mg PO DAILY@1900 #30 caps 10/17/24 11/12/24 Rx
release 24 hr
Review of Systems
-
Unable to obtain full review of systems at this time due to: Dementia
History Source: Patient, Transfer Record and Physician
All other systems: Negative unless noted
Constitutional: No Symptoms
EENT: No Symptoms
Respiratory: Trouble Breathing
Cardiac: No Symptoms
Abdomen/GI: No Symptoms
: No Symptoms
Musculoskeletal: No Symptoms
Skin: No Symptoms
Neurological: No Symptoms
Hematologic/Lymphatic: No Symptoms
Physical Exam
Vital Signs
Temp Pulse Resp BP Pulse Ox
98.0 F 95 16 134/90 97
11/12/24 15:14 11/12/24 16:07 11/12/24 16:07 11/12/24 15:14 11/12/24 16:07
Lab Results
11/12/24 02:04
11/12/24 02:04
Troponin I 0.014 ng/ml 11/12/24 02:04
Pqc-[id number]-Fchkupdykll Pept 4970 pg/ml 11/12/24 02:04
Physical Exam
General: Well Developed, Well Nourished, No Apparent Distress and Comfortable
HEENT: Normocephalic, Anicteric and Moist Mucous Membranes
Respiratory: Other (Bronchovesicular breath sounds with no wheezes or rhonchi immediately following nebulizer treatment. Faint crackles right base)
Cardiac: Other (Regular. Positive S1-S2. No murmurs or rubs.)
Breast: Deferred by me
GI: Soft, Non Tender, Non Distended and Normal Bowel Sounds
Musculoskeletal: Edema (+1 bilateral lower extremity edema)
Neuro: Awake, Alert and Nonfocal/Grossly Intact
Psych: Calm
Impression / Plan
-
Log Getter: Previously seen by Dr. Villarreal
Impression:
Acute heart failure with known nonischemic cardiomyopathy, last ejection fraction 2032, 50-55%
Hypertension
Hyperlipidemia
Nonobstructive coronary artery disease by cardiac catheterization in 2020
Known left bundle branch block
Sleep apnea on CPAP
History of asthma
Bipolar disorder
History of tobacco use/marijuana use
History of 'moderate alcohol use'
Plan:
Acute heart failure exacerbation with elevated proBNP
-Agree with IV diuresis
-Echocardiogram planned Thursday
-Optimize medications pending studies and clinical response
-Low-salt cardiac healthy diet
-Daily weights, I's and O's
Known left bundle branch block with nonobstructive coronary artery disease based on cardiac catheterization 2020
-No chest pain suggestive of angina
-Troponin not elevated
-Check lipid profile
History of asthma- Per primary
Sleep apnea on CPAP�continue CPAP therapy
Data Reviewed
-
EKG: Tracing Personally Visualized and interpreted
Radiology: Report Reviewed by me
CT Scan: Report Reviewed by me
Medical Tests (Nuc Med, Echo etc): Report Reviewed by me
Labs: Labs Reviewed by me
[2024-11-12] MEDS: LOVENOX 40 MG SC (17:43)
[2024-11-12] MEDS: EFFEXOR XR 75 MG PO (18:03)
[2024-11-12] MEDS: KLONOPIN 2 MG PO (21:47)
[2024-11-12] MEDS: ZYPREXA 10 MG PO (21:47)
[2024-11-13 03:02] VITALS: BP 113/77
[2024-11-13 06:00] VITALS: BMI 29.8
[2024-11-13] MEDS: SOLU-MEDROL PF 40 MG IV ×2 (06:11→17:41)
[2024-11-13 07:00] VITALS: BP 130/86
[2024-11-13] MEDS: DUONEB 3 ML INH ×4 (07:44→19:20)
[2024-11-13] MEDS: ADVAIR HFA 115/21 MCG INHALER 2 PUFF INH ×2 (07:44→19:20)
[2024-11-13] MEDS: LAMICTAL 200 MG PO (08:54)
[2024-11-13] MEDS: EFFEXOR XR 150 MG PO (08:54)
[2024-11-13] MEDS: PROTONIX 40 MG PO (08:55)
[2024-11-13] MEDS: RISPERDAL M-TAB (ORALLY DISINTEGRATING) 1 MG PO (08:55)
[2024-11-13] MEDS: LASIX 40 MG IV ×2 (08:55→15:36)
[2024-11-13 09:16] LABS: Hematocrit 34.0 % (39.0-52.0); Hemoglobin 10.7 g/dL (13.0-18.0); Mean Corp Hgb Conc. 31.5 g/dL (33.0-37.0); Mean Corpuscular Volume 74.9 fL (80.0-94.0); Platelet Count 289 10^3/uL (130-400); Red Cell Dist. Width 16.7 % (11.5-14.5)
[2024-11-13 09:35] LABS: Blood Urea Nitrogen 15 mg/dl (9-20); Calcium 9.6 mg/dl (8.4-10.2); Carbon Dioxide 22 mmol/L (22-30); Chloride 108 mmol/L (98-107); Estimated Creatinine Clearance 108 ml/min; Glucose 117 mg/dl (70-99); HDL Cholesterol 43 mg/dl; LDL Cholesterol, Calculated 71 mg/dl; Magnesium 1.9 mg/dl (1.6-2.3); Potassium 4.1 mmol/L (3.5-5.1); Sodium 139 mmol/L (135-145); Very Low Density Lipoprotein 26 mg/dl (0-30); eGFR > 60.00
[2024-11-13 11:00] VITALS: BP 129/78
--- NOTE | 2024-11-13 11:45 | W.PN.HOSP.TC ---
Today's Communication/Plan
-
There with IV status
Switch to p.o. prednisone in the morning
Monitor weights. Strict I's and O's.
Creatinine trend daily
Echo in the morning
Assessment / Plan
Assessment / Plan
General: Well Developed, Well Nourished, No Apparent Distress,
HEENT: NormoCephalic, Moist mucous membranes and Atraumatic
Respiratory: No expiratory wheezing, improvement in aeration bilaterally, not tachypneic, able to speak in full sentences, not on oxygen
Cardiac: S1/S2 and Regular Rhythm; No Murmur, Rub or Gallop
Breast: Deferred by me
GI: Soft, Non Tender, Non Distended and Normal Bowel Sounds; No Organomegaly
Rectal: Deferred by Provider
Genito-urinary: Deferred by me
Musculoskeletal: No Clubbing, No Cyanosis, Edema, Left Lower Extremity (Trace ankle) and Edema, Right Lower Extremity (Trace ankle)
Skin: Warm
Neuro: Awake, AO x 3 and Nonfocal/grossly intact
Psych: Calm,
This is a 64-year-old with past medical history significant for dementia, bipolar disorder obstructive sleep apnea, asthma, presenting to the emergency department with worsening dyspnea on exertion over the last several weeks. Patient states that
his asthma appears to have been getting worse and he feels that he has been treated due to his recent episodes of altered mental status and inability to express his symptoms adequately. More recently he has been able to express his symptoms and has
been getting rescue inhaler without any improvement. He has dyspnea and today has significant chest tightness pressure that was improved with oxygen. In the emergency department he was hypoxic requiring 2 L. Chest x-ray shows shows some ground
glass opacities. Auscultation shows bilateral and expiratory wheezes with prolonged expiratory phase and decreased breath sounds at the bases but no crackles. His BNP is elevated at over 4000. His ECG is unchanged from prior with a left bundle
and no new ischemic findings. Troponin was negative. Suspect patient multifactorial respiratory distress stemming from CHF as well as asthma/COPD exacerbation.
PLAN:
Acute hypoxic respiratory insufficiency multifactorial
-Plan as below
-Wean O2 as tolerated. Currently stable on room air. Home O2 eval prior to discharge.
Acute on chronic diastolic heart failure exacerbation
Severe pulmonary hypertension
-Will start with Lasix 40 mg IV twice daily. Monitor creatinine closely. Requires invasive monitoring.
-Check echocardiogram on Thursday
-TSH normal
-Daily weights, I's and O's. Fluid restriction.
-Chest x-ray with suggestive of interstitial pulmonary edema
-Cardiology following
Asthma exacerbation
- Continue with IV steroids 40 mg every 12 -switch to p.o. in the morning.
- DuoNebs [id number] for now
- Continue continue his home inhaler
- No cough or purulent sputum production, no indication for antibiotics
DERIAN on CPAP�patient has not been tolerating his CPAP due to he is chest tightness over the last several days
-Patient will not tolerate CPAP for now so holding off.
-Maintain supplemental oxygen to keep sats greater than 95%
Bipolar disorder
Suspected cognitive impairment unclear if with behavioral disturbances- currently seems mentation clear awake alert oriented
-Continue risperidone 1 mg a.m., 2 mg p.m.
�Continue his clonazepam 1mg AM and at 2mg PM
-Continue venlafaxine 150 every morning and 75 every afternoon
�Continues lamotrigine 200 daily
�Continue olanzapine 10 mg
DVT prophylaxis�Lovenox subcu
CODE STATUS�DNR/DNI.
Discussed with patient spouse at bedside in detail
Anticipated Discharge: > 48 hours
Subjective/Interval History
-
Date of Service: November 13, 2024
Sitting at the edge of bed and eating breakfast
Objective Data
-
Labs:
Laboratory Results
11/13/24
08:15
WBC 9.7
Hgb 10.7 L
Hct 34.0 L
Plt Count 289
Sodium 139
Potassium 4.1
Chloride 108 H
Carbon Dioxide 22
BUN 15
Creatinine 0.7
Glucose 117 H
Calcium 9.6
Vital Signs:
Vital Signs
Temp Pulse Resp BP Pulse Ox
97.9 F 98 16 130/86 96
11/13/24 07:00 11/13/24 11:22 11/13/24 11:22 11/13/24 07:00 11/13/24 11:22
I&O
11/12/24 11/13/24 11/14/24
06:59 06:59 06:59
Intake Total 960 / 960
Output Total 530 / 530 1775 / 1775
Balance -530 / -530 -815 / -815
Data Reviewed
-
Total Time Spent with Patient (in minutes): 55
[2024-11-13] MEDS: KLONOPIN 1 MG PO (13:19)
[2024-11-13 15:00] VITALS: BP 134/95
[2024-11-13] MEDS: RISPERDAL 2 MG PO (15:35)
--- NOTE | 2024-11-13 17:21 | W.PN.CARDCBS ---
Today's Communication / Plan
-
Continue IV diuresis
Workup anemia
Echocardiogram Thursday
Impression / Plan
-
Shaping Machine Tender: Previously seen by Dr. Villarreal
Impression:
Acute heart failure with known nonischemic cardiomyopathy, last ejection fraction 2022, 50-55%
Hypertension
Hyperlipidemia
Nonobstructive coronary artery disease by cardiac catheterization in 2020
Known left bundle branch block
Sleep apnea on CPAP
History of asthma
Bipolar disorder
History of tobacco use/marijuana use
History of 'moderate alcohol use'
Plan:
Acute heart failure exacerbation with elevated proBNP
-Agree with IV diuresis
-Echocardiogram planned Thursday
-Optimize medications pending studies and clinical response
-Low-salt cardiac healthy diet
-Daily weights, I's and O's
Known left bundle branch block with nonobstructive coronary artery disease based on cardiac catheterization 2020
-No chest pain suggestive of angina
-Troponin not elevated
-Check lipid profile
History of asthma- Per primary
Sleep apnea on CPAP�continue CPAP therapy
Anemia with hemoglobin 10.7, previously 14 in July 2023 and more recently 11-12 g/dL in September
-No obvious bleeding/blood loss
- Workup anemia as per primary
- Check iron studies
Progress Note - Shaping Machine Tender
Subjective
Date of Service: November 13, 2024
Patient seen and examined. Overall feels shortness of breath is better. Lower extremity edema better.
Objective
Labs:
11/13/24 08:15
11/13/24 08:15
Labs
Hgb 10.7 g/dL (13.0-18.0) L 11/13/24 08:15
Hct 34.0 % (39.0-52.0) L 11/13/24 08:15
Plt Count 289 10^3/uL (130-400) 11/13/24 08:15
Sodium 139 mmol/L (135-145) 11/13/24 08:15
Potassium 4.1 mmol/L (3.5-5.1) 11/13/24 08:15
BUN 15 mg/dl (9-20) 11/13/24 08:15
Creatinine 0.7 mg/dL (0.7-1.3) 11/13/24 08:15
Glucose 117 mg/dl (70-99) H 11/13/24 08:15
Troponins
11/12/24
02:04
Troponin I 0.014
Vital Signs and I&O:
Vital Signs
Temp Pulse Resp BP Pulse Ox
97.6 F 90 16 134/95 97
11/13/24 15:00 11/13/24 15:16 11/13/24 15:16 11/13/24 15:00 11/13/24 15:16
Vital Signs
Temp Pulse Resp BP Pulse Ox
97.6 F 90 16 134/95 97
11/13/24 15:00 11/13/24 15:16 11/13/24 15:16 11/13/24 15:00 11/13/24 15:16
Intake & Output
11/11/24 11/12/24 11/13/24 11/14/24
06:59 06:59 06:59 06:59
Intake Total 960 / 960
Output Total 530 / 530 1775 / 1775
Balance -530 / -530 -815 / -815
Physical Exam
Physical Exam
General: No acute distress, AAOX3
Heart: Regular. Positive S1-S2. No murmur
Lungs: Bronchovesicular breath sounds improved when compared to yesterday. No wheezes.
Abd: Positive BS, NT/ND, neg rebound/rigidity/guarding
Ext: Improved edema now trace
Neuro: nonfocal
[2024-11-13] MEDS: LOVENOX 40 MG SC (17:42)
[2024-11-13] MEDS: EFFEXOR XR 75 MG PO (18:35)
[2024-11-13 19:27] VITALS: BP 125/84
[2024-11-13] MEDS: KLONOPIN 2 MG PO (21:12)
[2024-11-13] MEDS: ZYPREXA 10 MG PO (21:12)
[2024-11-13 23:21] VITALS: BP 122/75
[2024-11-14] VITALS (7 sets, daily range): BP systolic 107–136; BP diastolic 76–100; PULSE 104; O2SAT 98; BMI 28.8
[2024-11-14] MEDS: DUONEB 3 ML INH ×4 (07:20→19:09)
[2024-11-14] MEDS: ADVAIR HFA 115/21 MCG INHALER 2 PUFF INH ×2 (07:20→19:09)
[2024-11-14] MEDS: LAMICTAL 200 MG PO (07:49)
[2024-11-14] MEDS: EFFEXOR XR 150 MG PO (07:50)
[2024-11-14] MEDS: RISPERDAL M-TAB (ORALLY DISINTEGRATING) 1 MG PO (07:50)
[2024-11-14] MEDS: DELTASONE 40 MG PO (07:50)
[2024-11-14] MEDS: PROTONIX 40 MG PO (07:50)
[2024-11-14 08:00] LABS: Blood Urea Nitrogen 19 mg/dl (9-20); Calcium 9.8 mg/dl (8.4-10.2); Carbon Dioxide 28 mmol/L (22-30); Chloride 103 mmol/L (98-107); Estimated Creatinine Clearance 84 ml/min; Glucose 119 mg/dl (70-99); Iron 31 ug/dl (49-181); Potassium 4.1 mmol/L (3.5-5.1); Sodium 139 mmol/L (135-145); eGFR > 60.00
[2024-11-14] MEDS: LASIX 40 MG IV ×2 (08:07→15:12)
[2024-11-14 08:10] LABS: Total Iron Binding Capacity 421 ug/dl (261-462)
[2024-11-14 08:32] LABS: Ferritin 19.9 ng/ml (17.9-464.0)
--- NOTE | 2024-11-14 10:20 | CM ---
CM reviewed chart, patient seen bedside with . Patient for Echocardiogram today. Per , patient recently d/c from [facility], were to set patient up with [facility] home health aide, PT, OT, and Speech. [facility] to [facility] with referral. CM
will continue to follow for all discharge planning needs.
Plan; home with [facility]
--- NOTE | 2024-11-14 10:51 | W.PN.HOSP.TC ---
Today's Communication/Plan
-
Follow-up echocardiogram
Continue diuretics
Stop steroids
Assessment / Plan
Assessment / Plan
Gen-AAOx3, NAD
HEENT-NC, AT, anicteric, clear oral mm
Neck-supple
CV-reg, no M, +S1/S2
Lungs-Rales at bases bilaterally
Abd-soft, NT, ND
Ext-1+ bilateral ankle edema
Musculoskeletal-no cyanosis, clubbing
Skin-warm and dry
Neuro-grossly non-focal
Psych-calm, cooperative
Acute hypoxic respiratory failure -due to pulmonary edema due to acute heart failure exacerbation. Doubt asthma exacerbation, as patient has not had a cough, did not feel improved with inhalers.
Suspect presentation with mild wheezing was related to heart failure exacerbation. Discontinue further steroids.
Oxygenation normal on room air.
Admission two-view chest x-ray with interstitial pulmonary edema, small to moderate bilateral pleural effusions.
Acute on chronic diastolic heart failure exacerbation
Severe pulmonary hypertension
Clinically improving with IV Lasix. Was not on diuretics prior to admission. Weight down 8 kg.
Echocardiogram completed, report pending.
-TSH normal
-Daily weights, I's and O's. Fluid restriction.
-Chest x-ray with suggestive of interstitial pulmonary edema
-Cardiology following
Asthma -doubt acute exacerbation. Stop further steroids.
DERIAN on CPAP�patient has not been tolerating his CPAP due to he is chest tightness over the last several days
-Patient will not tolerate CPAP for now so holding off.
-Maintain supplemental oxygen to keep sats greater than 95%
Bipolar disorder
Suspected cognitive impairment unclear if with behavioral disturbances- currently seems mentation clear awake alert oriented
-Continue risperidone 1 mg a.m., 2 mg p.m.
�Continue his clonazepam 1mg AM and at 2mg PM
-Continue venlafaxine 150 every morning and 75 every afternoon
�Continues lamotrigine 200 daily
�Continue olanzapine 10 mg
Chronic microcytic anemia -hemoglobin 10.7, monitor for now. Iron panel trending towards iron deficiency anemia. He seems up-to-date with EGD and colonoscopy, follow-up with PCP and GI after discharge.
DNR/DNI -confirmed with patient and .
Anticipated Discharge: Within 24 hours
Subjective/Interval History
-
Date of Service: November 14, 2024
Patient seen and examined. Feeling better, less short of breath. No complaints.
Objective Data
-
Labs:
Laboratory Results
11/14/24
07:29
Sodium 139
Potassium 4.1
Chloride 103
Carbon Dioxide 28
BUN 19
Creatinine 0.8
Glucose 119 H
Calcium 9.8
Vital Signs:
Vital Signs
Temp Pulse Resp BP Pulse Ox
97.7 F 98 18 130/88 97
11/14/24 07:30 11/14/24 07:30 11/14/24 07:30 11/14/24 07:30 11/14/24 07:30
I&O
11/13/24 11/14/24 11/15/24
06:59 06:59 06:59
Intake Total 960 / 960 960 / 960
Output Total 1775 / 1775
Balance -815 / -815 960 / 960
Review of Systems
-
History Source: Patient
All other systems: Reviewed and negative
--- NOTE | 2024-11-14 10:55 | VNURNOTE ---
Home Health Liaison met with patient and spouse at bedside to discuss [facility] nurse/therapy, visits, schedule and homebound status. Patient is agreeable and understands that visits at home will be 2-3 x per week to assess and teach medical
management. Patient is aware that [facility] will contact them for start of care in 1-2 days after discharge from . Provided contact number for [facility].
[facility] referral completed in [facility].
[2024-11-14] MEDS: COREG 3.125 MG PO ×2 (11:05→20:08)
[2024-11-14] MEDS: KLONOPIN 1 MG PO (11:51)
[2024-11-14] MEDS: RISPERDAL 2 MG PO (15:11)
--- NOTE | 2024-11-14 17:42 | W.PN.CARDCBS ---
Today's Communication / Plan
-
Optimize goal-directed medical therapy for conservative management of presumed nonischemic cardiomyopathy
Impression / Plan
-
Sand Filler: Previously seen by Dr. Villarreal
Impression:
Acute heart failure with known nonischemic cardiomyopathy, last ejection fraction 2022, 50-55%
Hypertension
Hyperlipidemia
Nonobstructive coronary artery disease by cardiac catheterization in 2020
Known left bundle branch block
Sleep apnea on CPAP
History of asthma
Bipolar disorder
History of tobacco use/marijuana use
History of 'moderate alcohol use'
Plan:
Acute heart failure with reduced ejection fraction with history of nonischemic cardiomyopathy
- Echocardiogram done earlier today reviewed with patient and at bedside. Left ventricle is dilated with severely reduced LV systolic function estimated 10-15% with grade 3 diastolic dysfunction and mildly reduced RV systolic function.
-Discussed with patient and that I did not feel this was an asthma exacerbation.
- Known left bundle branch block with nonobstructive coronary artery disease based on cardiac catheterization 2020
-No chest pain suggestive of angina
-Troponin not elevated, TSH normal
- We discussed management of cardiomyopathy and/patient prefer conservative management that does not include procedures. She has indicated she would not wish to pursue cardiac catheterization, ICD/OCCUPATIONAL THERAPIST
- Continue carvedilol 3.125 mg twice daily. Will start Entresto 24/26 mg twice daily.will have case management look into adding SGLT2 inhibitor this admission. Eventual addition of Aldactone if able.
- Continue IV Lasix for now with likely transition to 40 mg once daily.
Patient had been living at home briefly placed in a nursing facility due to worsening dementia-please have PT/OT see patient to start discharge planning
Patient and admit that he drinks about 6 beers a week�complete alcohol cessation strongly advised with cardiomyopathy
CHF diet and education consult to be provided
Sleep apnea on CPAP�continue CPAP therapy
Anemia with hemoglobin 10.7, previously 14 in July 2023 and more recently 11-12 g/dL in September
-No obvious bleeding/blood loss
- Appears to be iron deficiency anemia�will defer to primary IV iron during this hospitalization
DNR/DNI
Progress Note - Sand Filler
Subjective
Date of Service: November 14, 2024
Seen and examined with at bedside. Reviewed echocardiogram. Patient overall feels better on room air at rest but still has some shortness of breath with bathroom ambulation.. Lower extremity edema is better
Objective
Labs:
11/13/24 08:15
11/14/24 07:29
Labs
Hgb 10.7 g/dL (13.0-18.0) L 11/13/24 08:15
Hct 34.0 % (39.0-52.0) L 11/13/24 08:15
Plt Count 289 10^3/uL (130-400) 11/13/24 08:15
Sodium 139 mmol/L (135-145) 11/14/24 07:29
Potassium 4.1 mmol/L (3.5-5.1) 11/14/24 07:29
BUN 19 mg/dl (9-20) 11/14/24 07:29
Creatinine 0.8 mg/dL (0.7-1.3) 11/14/24 07:29
Glucose 119 mg/dl (70-99) H 11/14/24 07:29
Troponins
11/12/24
02:04
Troponin I 0.014
Vital Signs and I&O:
Vital Signs
Temp Pulse Resp BP Pulse Ox
97.5 F 91 22 117/86 96
11/14/24 15:30 11/14/24 15:30 11/14/24 15:30 11/14/24 15:30 11/14/24 15:30
Vital Signs
Temp Pulse Resp BP Pulse Ox
97.5 F 91 22 117/86 96
11/14/24 15:30 11/14/24 15:30 11/14/24 15:30 11/14/24 15:30 11/14/24 15:30
Intake & Output
11/12/24 11/13/24 11/14/24 11/15/24
06:59 06:59 06:59 06:59
Intake Total 960 / 960 960 / 960 900 / 900
Output Total 530 / 530 1775 / 1775 1925 / 1925
Balance -530 / -530 -815 / -815 960 / 960 -1025 / -1025
Physical Exam
Physical Exam
General: No acute distress
Heart: Regular. Positive S1-S2. No murmur
Lungs: Bronchovesicular breath sounds, clear. No wheezes
Abd: Positive BS, NT/ND, neg rebound/rigidity/guarding
Ext: No lower extremity edema.
[2024-11-14] MEDS: EFFEXOR XR 75 MG PO (18:00)
[2024-11-14] MEDS: LOVENOX 40 MG SC (18:00)
[2024-11-14] MEDS: ENTRESTO 24 MG/26 MG 1 TAB PO (20:08)
[2024-11-14] MEDS: KLONOPIN 2 MG PO (21:10)
[2024-11-14] MEDS: ZYPREXA 10 MG PO (21:10)
[2024-11-15 03:37] VITALS: BP 102/72
[2024-11-15 06:00] VITALS: BMI 28.3
[2024-11-15 07:30] VITALS: BP 117/85
[2024-11-15] MEDS: ADVAIR HFA 115/21 MCG INHALER 2 PUFF INH ×2 (07:37→19:24)
[2024-11-15] MEDS: DUONEB 3 ML INH (07:37)
[2024-11-15] MEDS: ENTRESTO 24 MG/26 MG 1 TAB PO (08:27)
[2024-11-15] MEDS: LAMICTAL 200 MG PO (08:28)
[2024-11-15] MEDS: COREG 3.125 MG PO (08:28)
[2024-11-15] MEDS: RISPERDAL M-TAB (ORALLY DISINTEGRATING) 1 MG PO (08:28)
[2024-11-15] MEDS: PROTONIX 40 MG PO (08:28)
[2024-11-15] MEDS: EFFEXOR XR 150 MG PO (08:28)
[2024-11-15] MEDS: LASIX 40 MG IV (08:29)
[2024-11-15 09:28] LABS: Blood Urea Nitrogen 16 mg/dl (9-20); Calcium 9.6 mg/dl (8.4-10.2); Carbon Dioxide 31 mmol/L (22-30); Chloride 101 mmol/L (98-107); Estimated Creatinine Clearance 84 ml/min; Glucose 91 mg/dl (70-99); Potassium 3.8 mmol/L (3.5-5.1); Sodium 139 mmol/L (135-145); eGFR > 60.00
[2024-11-15 11:15] VITALS: BP 107/79
--- NOTE | 2024-11-15 11:18 | W.PN.HOSP.TC ---
Addendum entered and electronically signed by Camilo Robbins DO 11/15/24 15:19:
Correction: Acute on chronic heart failure with reduced EF exacerbation
Original Note:
Today's Communication/Plan
-
Continue current care
Assessment / Plan
Assessment / Plan
Gen-AAOx3, NAD
HEENT-NC, AT, anicteric, clear oral mm
Neck-supple
CV-reg, no M, +S1/S2
Lungs-Rales at bases bilaterally
Abd-soft, NT, ND
Ext-1+ bilateral ankle edema
Musculoskeletal-no cyanosis, clubbing
Skin-warm and dry
Neuro-grossly non-focal
Psych-calm, cooperative
Acute hypoxic respiratory failure -due to pulmonary edema due to acute heart failure exacerbation. Doubt asthma exacerbation, as patient has not had a cough, did not feel improved with inhalers.
Suspect presentation with mild wheezing was related to heart failure exacerbation. Discontinue further steroids.
Oxygenation normal on room air.
Admission two-view chest x-ray with interstitial pulmonary edema, small to moderate bilateral pleural effusions.
Acute on chronic diastolic heart failure exacerbation
Severe pulmonary hypertension
Clinically improving with IV Lasix. Was not on diuretics prior to admission. Weight down 9kg. Lasix dose reduced to once daily IV.
Echocardiogram shows LVEF 10 to 15%, grade 3 diastolic dysfunction, mildly reduced RV systolic function. Mild TR. Mild MR. Compared to May 2022, EF is dropped from 50 to 55% down to 10 to 15%.
-TSH normal
-Daily weights, I's and O's. Fluid restriction.
-Chest x-ray with suggestive of interstitial pulmonary edema
-Cardiology following
Asthma -doubt acute exacerbation. Steroids discontinued 11/14. Stop [id number]-ovo-isolb nebs.
DERIAN on CPAP�patient has not been tolerating his CPAP due to he is chest tightness over the last several days
-Patient will not tolerate CPAP for now so holding off.
-Maintain supplemental oxygen to keep sats greater than 95%
Bipolar disorder
Suspected cognitive impairment unclear if with behavioral disturbances- currently seems mentation clear awake alert oriented
-Continue risperidone 1 mg a.m., 2 mg p.m.
�Continue his clonazepam 1mg AM and at 2mg PM
-Continue venlafaxine 150 every morning and 75 every afternoon
�Continues lamotrigine 200 daily
�Continue olanzapine 10 mg
Chronic microcytic anemia -hemoglobin 10.7, monitor for now. Iron panel trending towards iron deficiency anemia. He seems up-to-date with EGD and colonoscopy, follow-up with PCP and GI after discharge.
DNR/DNI -confirmed with patient and .
Anticipated Discharge: Within 24 hours
Subjective/Interval History
-
Date of Service: November 15, 2024
Patient seen and examined. No complaints.
Objective Data
-
Labs:
Laboratory Results
11/15/24
07:52
Sodium 139
Potassium 3.8
Chloride 101
Carbon Dioxide 31 H
BUN 16
Creatinine 0.8
Glucose 91
Calcium 9.6
Vital Signs:
Vital Signs
Temp Pulse Resp BP Pulse Ox
97.8 F 87 18 107/79 99
11/15/24 11:15 11/15/24 11:15 11/15/24 11:15 11/15/24 11:15 11/15/24 11:15
I&O
11/14/24 11/15/24 11/16/24
06:59 06:59 06:59
Intake Total 960 / 960 1020 / 1020
Output Total 1924 / 1924
Balance 960 / 960 -905 / -905
Review of Systems
-
History Source: Patient
All other systems: Reviewed and negative
[2024-11-15] MEDS: KLONOPIN 1 MG PO (11:57)
--- NOTE | 2024-11-15 12:11 | W.PN.CARDCBS ---
Addendum entered and electronically signed by Isai Pepe MD 11/15/24 12:38:
I saw and examined the patient.
The ANTENNA RIGGER or PA's note was reviewed and I agree with the note.
Comment: General: Well developed, well nourished in NAD.
Neck: Supple, no JVD, HJR, carotids +2 B/L, no bruits bilaterally.
Heart: Non displaced PMI, RRR, no murmurs, No S3, S4, no rubs.
Lungs: Crackles at the bases
Extremities: No clubbing, cyanosis or edema bilaterally.
Neuro: Grossly nonfocal, awake, alert and oriented x3.
He complains of shortness of breath but is a poor historian. Continue IV Lasix. Continue Coreg and Entresto. Will add Farxiga. No Aldactone for now with borderline blood pressure. Discussed in detail with patient's as well as primary
service. She is interested in rehab if patient is a candidate. Total visit time 52 minutes including more than half time spent explaining diagnosis, prognosis, and treatment options
Original Note:
Today's Communication / Plan
-
Tolerating Coreg and Entresto, will add Farxiga
Borderline low BP so we will hold off on spironolactone
Tolerating diuresis so we will continue for now
Impression / Plan
-
PCP: Dr. Padilla
Licensing Services Clerk: Previously seen by Dr. Villarreal
Impression:
Admitted with acute HF 11/12/2024
Acute HFrEF
NICM EF 10 to 15% by echo 11/14/2024
Possible EtOH use disorder
Hypertension
Hyperlipidemia
Nonobstructive coronary artery disease by cardiac catheterization in 2020
Known left bundle branch block
Sleep apnea on CPAP
History of asthma
Bipolar disorder
History of tobacco use/marijuana use
Echo 06/18/2022: EF 50 to 55%, no WMA
Echo 11/14/2024: EF 10 to 15%, grade 3 diastolic dysfunction, mild TR, mild MR
Plan:
-Patient was admitted with acute HF and EF is now reduced to 10 to 15% by echo 11/14/2024
-Weight is down 14 lbs with Lasix 40 mg IV daily. Patient is below previous dry weight
-Patient was not taking a loop diuretic prior to admission and will likely need Lasix 40 mg PO daily at time of discharge
-Labs reviewed by me 11/15/24, Cre stable at 0.8
-EF 10 to 15% by echo 11/14/2024 compared to EF of 50 to 55% by echo in 2022. Patient and are not interested in invasive evaluation of CM and are not interested in cardiac catheterization. Patient had nonobstructive CAD by cardiac cath in 2020
plan is for medical therapy. Patient is a DNR
-Patient is new to Coreg 3.125 mg BID
-Patient is new to Entresto 24/26 mg BID and tolerating all doses thus far
-BP 107/79 and will hold off on starting aldosterone antagonist.
-Will add Farxiga 10 mg daily on 11/15/2024.
-LBBB is chronic
-There was consideration for SNF, but at this point patient will likely return home with his and services at home
Progress Note - Licensing Services Clerk
Subjective
Date of Service: November 15, 2024
He seems to be tolerating medications thus far, no lightheadedness
Objective
Labs:
11/13/24 08:15
11/15/24 07:52
Labs
Hgb 10.7 g/dL (13.0-18.0) L 11/13/24 08:15
Hct 34.0 % (39.0-52.0) L 11/13/24 08:15
Plt Count 289 10^3/uL (130-400) 11/13/24 08:15
Sodium 139 mmol/L (135-145) 11/15/24 07:52
Potassium 3.8 mmol/L (3.5-5.1) 11/15/24 07:52
BUN 16 mg/dl (9-20) 11/15/24 07:52
Creatinine 0.8 mg/dL (0.7-1.3) 11/15/24 07:52
Glucose 91 mg/dl (70-99) 11/15/24 07:52
Vital Signs and I&O:
Vital Signs
Temp Pulse Resp BP Pulse Ox
97.8 F 87 18 107/79 99
11/15/24 11:15 11/15/24 11:15 11/15/24 11:15 11/15/24 11:15 11/15/24 11:15
Vital Signs
Temp Pulse Resp BP Pulse Ox
97.8 F 87 18 107/79 99
11/15/24 11:15 11/15/24 11:15 11/15/24 11:15 11/15/24 11:15 11/15/24 11:15
Intake & Output
11/13/24 11/14/24 11/15/24 11/16/24
06:59 06:59 06:59 06:59
Intake Total 960 / 960 960 / 960 1020 / 1020
Output Total 1775 / 1775 1925 / 192
Balance -815 / -815 960 / 960 -905 / -905
Physical Exam
Physical Exam
General: NAD
Heart: SR on telemetry
Lungs: RA. No audible wheeze
--- NOTE | 2024-11-15 12:53 | CM ---
Addendum entered by Briana Watters 11/15/24 15:07:
Patient seen bedside with , discussed cost of medications- agreeable to cost.
Original Note:
CM reviewed chart, consult received for shoemaker check of Entresto /, Farxiga 10 mg, Jardiance 10 mg. CM spoke with patients Pharmacy- Entresto /: $14 co pay, Farxiga 10 mg: $60 , Jardiance 10 mg: $60, update to Cardiology. Patient seen
bedside, no present, will provide update to . CM will continue to follow for all discharge planning needs.
Plan; home with , [facility]
[2024-11-15] MEDS: RISPERDAL 2 MG PO (14:38)
[2024-11-15 14:54] VITALS: BP 101/73
--- NOTE | 2024-11-15 14:55 | PN.CDI ---
CDI
- -
CDI:
Physician Documentation Request
Admit Date: 11/12/24 06:38
Dear Doctor Rosendo,
Clinical Indicators:
Patient admitted with acute heart failure exacerbation.
11/15 Cardiology PN, 'Acute HFrEF'
11/15 PN, 'Acute on chronic diastolic heart failure exacerbation'
Echo Report,'...estimated ejection fraction 10-15%'
Due to conflicting documentation, please clarify the type of CHF you are evaluating, treating or monitoring.
Acute on chronic HFrEF
Other, please specify
Use of terms such as suspected, likely, concern for, or probable (associated with a specific diagnosis that is being evaluated, monitored, or treated as if it exists) are acceptable and can be coded in the inpatient setting, when documented at the
time of discharge.
Thank you,
SAMUEL Rose RN
CDI Specialist
available via tiger text
Please use your independent medical judgment in providing your response.
[2024-11-15] MEDS: LOVENOX 40 MG SC (17:51)
[2024-11-15] MEDS: EFFEXOR XR 75 MG PO (17:52)
[2024-11-15] MEDS: COREG PO (20:57)
[2024-11-15] MEDS: ENTRESTO 24 MG/26 MG PO (20:58)
[2024-11-15 22:30] VITALS: BP 90/61
[2024-11-15] MEDS: ZYPREXA 10 MG PO (22:38)
[2024-11-16 00:02] VITALS: BP 94/64
[2024-11-16] MEDS: KLONOPIN PO (00:02)
--- NOTE | 2024-11-16 01:00 | PTCARENOTE ---
Patient's BP running low this shift. 92/61 HR 77 @ 2029. Discussed with AUTOMOTIVE ENGINEERING TEACHER via TT. Held scheduled Coreg and Entresto.
90/61 HR 81 @ 2229. Discussed with AUTOMOTIVE ENGINEERING TEACHER while on unit. Advised to give scheduled Zyprexa and recheck BP at MN to decide if scheduled Klonopin should be given. BP @ MN was 94/64 HR 80. AUTOMOTIVE ENGINEERING TEACHER advised to hold scheduled Klonopin. Patient was asymptomatic
with each BP check, denied feeling dizzy or lightheaded.
--- NOTE | 2024-11-16 04:00 | DOWNTIME ---
There was a CAPPTURE Client Oil Burner Repairer Downtime on 11/16/2024 from 0100 to 11/16/2024 at 0215. Downtime documentation of patient's care, including medication administrations, has been reconciled in the electronic record per guidelines. Refer to the
patient's paper chart under the miscellaneous tab to see printed paper medication records and downtime forms.
[2024-11-16 06:00] VITALS: BMI 28.0
[2024-11-16 07:00] VITALS: BP 99/65
[2024-11-16] MEDS: ADVAIR HFA 115/21 MCG INHALER 2 PUFF INH ×2 (07:26→19:31)
[2024-11-16 07:41] LABS: Blood Urea Nitrogen 19 mg/dl (9-20); Estimated Creatinine Clearance 67 ml/min; Glucose 98 mg/dl (70-99); eGFR > 60.00
[2024-11-16 07:42] LABS: Calcium 9.6 mg/dl (8.4-10.2); Carbon Dioxide 26 mmol/L (22-30); Chloride 104 mmol/L (98-107); Potassium 4.0 mmol/L (3.5-5.1); Sodium 141 mmol/L (135-145)
[2024-11-16] MEDS: FARXIGA 10 MG PO (08:10)
[2024-11-16] MEDS: EFFEXOR XR 150 MG PO (08:10)
[2024-11-16] MEDS: COREG PO (08:10)
[2024-11-16] MEDS: ENTRESTO 24 MG/26 MG PO (08:10)
[2024-11-16] MEDS: LAMICTAL 200 MG PO (08:11)
[2024-11-16] MEDS: LASIX 40 MG IV (08:11)
[2024-11-16] MEDS: PROTONIX 40 MG PO (08:11)
[2024-11-16] MEDS: RISPERDAL M-TAB (ORALLY DISINTEGRATING) 1 MG PO (08:11)
[2024-11-16] MEDS: COREG 3.125 MG PO ×2 (10:11→20:25)
[2024-11-16] MEDS: ENTRESTO 24 MG/26 MG 1 TAB PO ×2 (10:11→20:25)
--- NOTE | 2024-11-16 10:17 | PTCARENOTE ---
Pt's B/P on the lower side this am. /, HR 65. B/P meds initially held this am, then Dr. Pepe on floor, notified of low B/P and meds being held. Wants pt to have meds in spite of low B/P. Pt is asymptomatic. Entresto and Coreg administered as
ordered.
[2024-11-16 11:00] VITALS: BP 93/70
--- NOTE | 2024-11-16 11:16 | W.PN.HOSP.TC ---
Today's Communication/Plan
-
Continue current care
Assessment / Plan
Assessment / Plan
Gen-AAOx3, NAD
HEENT-NC, AT, anicteric, clear oral mm
Neck-supple
CV-reg, no M, +S1/S2
Lungs-clear bilaterally
Abd-soft, NT, ND
Ext-1+ bilateral ankle edema
Musculoskeletal-no cyanosis, clubbing
Skin-warm and dry
Neuro-grossly non-focal
Psych-calm, cooperative
Acute hypoxic respiratory failure -due to pulmonary edema due to acute heart failure exacerbation. Doubt asthma exacerbation, as patient has not had a cough, did not feel improved with inhalers.
Suspect presentation with mild wheezing was related to heart failure exacerbation. Discontinue further steroids.
Oxygenation normal on room air.
Admission two-view chest x-ray with interstitial pulmonary edema, small to moderate bilateral pleural effusions.
Acute on chronic heart failure with reduced EF exacerbation
Severe pulmonary hypertension
Clinically improving with IV Lasix. Was not on diuretics prior to admission. Lasix dose reduced to once daily IV.
Echocardiogram shows LVEF 10 to 15%, grade 3 diastolic dysfunction, mildly reduced RV systolic function. Mild TR. Mild MR. Compared to May 2022, EF is dropped from 50 to 55% down to 10 to 15%.
-TSH normal
Weight down 10 kg since admission.
Relative hypotension noted but patient asymptomatic. Blood pressure 99/65 this morning.
Asthma -doubt acute exacerbation. Steroids discontinued 11/14. Stopped [id number] nebs.
DERIAN on CPAP�patient has not been tolerating his CPAP due to he is chest tightness over the last several days
-Patient will not tolerate CPAP for now so holding off.
-Maintain supplemental oxygen to keep sats greater than 95%
Bipolar disorder
Suspected cognitive impairment unclear if with behavioral disturbances- currently seems mentation clear awake alert oriented
-Continue risperidone 1 mg a.m., 2 mg p.m.
�Continue his clonazepam 1mg AM and at 2mg PM
-Continue venlafaxine 150 every morning and 75 every afternoon
�Continues lamotrigine 200 daily
�Continue olanzapine 10 mg
Chronic microcytic anemia -hemoglobin 10.7, monitor for now. Iron panel trending towards iron deficiency anemia. He seems up-to-date with EGD and colonoscopy, follow-up with PCP and GI after discharge.
DNR/DNI -confirmed with patient and .
Anticipated Discharge: 24 - 48 hours
Subjective/Interval History
-
Date of Service: November 16, 2024
Patient seen and examined. Still having mild dyspnea on exertion. Denies lightheadedness.
Objective Data
-
Labs:
Laboratory Results
11/16/24
06:34
Sodium 141
Potassium 4.0
Chloride 104
Carbon Dioxide 26
BUN 19
Creatinine 1.0
Glucose 98
Calcium 9.6
Vital Signs:
Vital Signs
Temp Pulse Resp BP Pulse Ox
97.7 F 88 16 99/65 94
11/16/24 07:00 11/16/24 08:10 11/16/24 07:28 11/16/24 08:10 11/16/24 08:00
I&O
11/15/24 11/16/24 11/17/24
06:59 06:59 06:59
Intake Total 1020 / 1020 960 / 960
Output Total 1924 / 1924 1600 / 1600
Balance -905 / -905 -640 / -640
Review of Systems
-
History Source: Patient
All other systems: Reviewed and negative
[2024-11-16] MEDS: KLONOPIN 1 MG PO (11:48)
--- NOTE | 2024-11-16 11:49 | CM ---
CM reviewed chart, patient seen bedside with , inquiring about cardiac rehab. CM discussed this is does in an outpatient setting. reports she would like patient to go to an inpatient rehab. CM discussed per previous therapy notes, patient
did very well, was supervision level to ambulate, 140 ft with RW, 140 ft no device, would need insurance auth and would likely not get approved for rehab, will ask for OT consult. TT with Cardiology, will have cardiac rehab see patient. CM will
continue to follow for all discharge planning needs.
Plan; home with , [facility], inquiring about SNF, will likely not get approved by insurance
--- NOTE | 2024-11-16 12:23 | W.PN.CARDCBS ---
Addendum entered and electronically signed by Isai Pepe MD 11/16/24 13:44:
Will sign off, call with questions
Addendum entered and electronically signed by Isai Pepe MD 11/16/24 13:09:
I saw and examined the patient.
The INDUSTRIAL MACHINE OPERATOR or PA's note was reviewed and I agree with the note.
Comment: General: Well developed, well nourished in NAD.
Neck: Supple, no JVD, HJR, carotids +2 B/L, no bruits bilaterally.
Heart: Non displaced PMI, RRR, no murmurs, No S3, S4, no rubs.
Lungs: Scattered rhonchi
Extremities: No clubbing, cyanosis or edema bilaterally.
Neuro: Grossly nonfocal, awake, alert and oriented x3.
He still has some shortness of breath but weight has improved. Will give 1 more day of IV Lasix and changed to oral Lasix in AM. Discussed with patient and at bedside. Will need to watch blood pressure with Entresto and Coreg. Discussed
with nursing
Original Note:
Today's Communication / Plan
-
Cardiac rehab consulted
Lasix changed to 40 mg PO daily starting tomorrow
Impression / Plan
-
PCP: Dr. Padilla
Check Writer Salesperson: Previously seen by Dr. Villarreal
Impression:
Admitted with acute HF 11/12/2024
Acute HFrEF
NICM EF 10 to 15% by echo 11/14/2024
Possible EtOH use disorder
Hypertension
Hyperlipidemia
Nonobstructive coronary artery disease by cardiac catheterization in 2020
Known left bundle branch block
Sleep apnea on CPAP
History of asthma
Bipolar disorder
History of tobacco use/marijuana use
Echo 06/18/2022: EF 50 to 55%, no WMA
Echo 11/14/2024: EF 10 to 15%, grade 3 diastolic dysfunction, mild TR, mild MR
Plan:
-Patient was admitted with acute HF and EF is now reduced to 10 to 15% by echo 11/14/2024
-Weight is down 16 lbs with Lasix 40 mg IV daily. Patient is below previous dry weight
-Patient was not taking a loop diuretic prior to admission and will likely need Lasix 40 mg PO daily at time of discharge
-Labs reviewed by me 11/16/24, Cre is 1.0. VS reviewed by me and patient is hypotensive 11/16/24. Will transition to Lasix 40 mg PO daily to start on 11/17/2024
-EF 10 to 15% by echo 11/14/2024 compared to EF of 50 to 55% by echo in 2022. Patient and are not interested in invasive evaluation of CM and are not interested in cardiac catheterization. Patient had nonobstructive CAD by cardiac cath in 2020
plan is for medical therapy. Patient is a DNR
-Patient's is interested in cardiac rehab, patient did well enough in PT that he will likely go home with [facility]. If patient somehow qualifies for rehab stay then he will have to defer cardiac rehab. Cardiac rehab consulted by me on 11/16/2024
-Patient is new to Coreg 3.125 mg BID
-Patient is new to Entresto 24/26 mg BID and tolerating all doses thus far
-Will not start aldosterone antagonist at this time due to hypotension.
-Patient is new to Farxiga 10 mg daily on 11/15/2024. Appreciate help of CM on checking cost
Progress Note - Check Writer Salesperson
Subjective
Date of Service: November 16, 2024
Less SOB, but he does not feel like he is back to baseline
Objective
Labs:
11/13/24 08:15
11/16/24 06:34
Labs
Hgb 10.7 g/dL (13.0-18.0) L 11/13/24 08:15
Hct 34.0 % (39.0-52.0) L 11/13/24 08:15
Plt Count 289 10^3/uL (130-400) 11/13/24 08:15
Sodium 141 mmol/L (135-145) 11/16/24 06:34
Potassium 4.0 mmol/L (3.5-5.1) 11/16/24 06:34
BUN 19 mg/dl (9-20) 11/16/24 06:34
Creatinine 1.0 mg/dL (0.7-1.3) 11/16/24 06:34
Glucose 98 mg/dl (70-99) 11/16/24 06:34
Vital Signs and I&O:
Vital Signs
Temp Pulse Resp BP Pulse Ox
97.7 F 87 16 93/70 98
11/16/24 11:00 11/16/24 11:00 11/16/24 11:00 11/16/24 11:00 11/16/24 11:00
Vital Signs
Temp Pulse Resp BP Pulse Ox
97.7 F 87 16 93/70 98
11/16/24 11:00 11/16/24 11:00 11/16/24 11:00 11/16/24 11:00 11/16/24 11:00
Intake & Output
11/14/24 11/15/24 11/16/24 11/17/24
06:59 06:59 06:59 06:59
Intake Total 960 / 960 1020 / 1020 960 / 960
Output Total 1924 / 192 1600 / 1600
Balance 960 / 960 -905 / -905 -640 / -640
Physical Exam
Physical Exam
General: NAD
Heart: SR on telemetry
Lungs: RA. No audible wheeze
[2024-11-16 15:00] VITALS: BP 110/79
[2024-11-16] MEDS: RISPERDAL 2 MG PO (15:19)
[2024-11-16] MEDS: EFFEXOR XR 75 MG PO (18:04)
[2024-11-16] MEDS: LOVENOX 40 MG SC (18:04)
[2024-11-16 23:17] VITALS: BP 102/72; BP 96/58
[2024-11-16] MEDS: ZYPREXA 10 MG PO (23:35)
[2024-11-17] MEDS: KLONOPIN PO (01:28)
[2024-11-17 05:47] VITALS: BMI 27.9
[2024-11-17] MEDS: ADVAIR HFA 115/21 MCG INHALER 2 PUFF INH (07:46)
[2024-11-17 07:47] VITALS: BP 114/82
[2024-11-17] MEDS: FARXIGA 10 MG PO (07:48)
[2024-11-17] MEDS: ENTRESTO 24 MG/26 MG 1 TAB PO (07:48)
[2024-11-17] MEDS: PROTONIX 40 MG PO (07:48)
[2024-11-17] MEDS: COREG 3.125 MG PO (07:49)
[2024-11-17] MEDS: LAMICTAL 200 MG PO (07:49)
[2024-11-17] MEDS: EFFEXOR XR 150 MG PO (07:49)
[2024-11-17] MEDS: RISPERDAL M-TAB (ORALLY DISINTEGRATING) 1 MG PO (07:49)
[2024-11-17 08:21] VITALS: BP 108/64; PULSE 83; O2SAT 96
[2024-11-17 08:22] VITALS: BP 108/74; PULSE 83; O2SAT 96
[2024-11-17 10:56] LABS: Blood Urea Nitrogen 17 mg/dl (9-20); Calcium 9.7 mg/dl (8.4-10.2); Carbon Dioxide 27 mmol/L (22-30); Chloride 103 mmol/L (98-107); Estimated Creatinine Clearance 67 ml/min; Glucose 123 mg/dl (70-99); Potassium 3.7 mmol/L (3.5-5.1); Sodium 139 mmol/L (135-145); eGFR > 60.00
[2024-11-17] MEDS: LASIX 40 MG PO (11:03)
[2024-11-17 11:05] LABS: Hematocrit 42.0 % (39.0-52.0); Hemoglobin 13.2 g/dL (13.0-18.0); Mean Corp Hgb Conc. 31.4 g/dL (33.0-37.0); Mean Corpuscular Volume 74.9 fL (80.0-94.0); Nucleated Red Blood Cells % 0 % (-); Platelet Count 407 10^3/uL (130-400); Red Cell Dist. Width 16.6 % (11.5-14.5)
--- NOTE | 2024-11-17 11:40 | W.PN.HOSP.TC ---
Today's Communication/Plan
-
discharge
Assessment / Plan
Assessment / Plan
Gen-AAOx3, NAD
HEENT-NC, AT, anicteric, clear oral mm
Neck-supple
CV-reg, no M, +S1/S2
Lungs-clear bilaterally
Abd-soft, NT, ND
Ext-1+ bilateral ankle edema
Musculoskeletal-no cyanosis, clubbing
Skin-warm and dry
Neuro-grossly non-focal
Psych-calm, cooperative
Acute hypoxic respiratory failure -due to pulmonary edema due to acute heart failure exacerbation. Doubt asthma exacerbation, as patient has not had a cough, did not feel improved with inhalers.
Suspect presentation with mild wheezing was related to heart failure exacerbation. Discontinue further steroids.
Oxygenation normal on room air.
Admission two-view chest x-ray with interstitial pulmonary edema, small to moderate bilateral pleural effusions.
Acute on chronic heart failure with reduced EF exacerbation
Severe pulmonary hypertension
Clinically improving with IV Lasix. Was not on diuretics prior to admission. Lasix converted to oral by Cardiology and they signed off.
Echocardiogram shows LVEF 10 to 15%, grade 3 diastolic dysfunction, mildly reduced RV systolic function. Mild TR. Mild MR. Compared to May 2022, EF is dropped from 50 to 55% down to 10 to 15%.
-TSH normal
Weight down 10 kg since admission.
Relative hypotension noted but patient asymptomatic. Blood pressure improved this am.
Asthma -doubt acute exacerbation. Steroids discontinued 11/14. Stopped doqxfu-xai-[id number] nebs.
DERIAN on CPAP�patient has not been tolerating his CPAP due to he is chest tightness over the last several days
-Patient will not tolerate CPAP for now so holding off.
-Maintain supplemental oxygen to keep sats greater than 95%
Bipolar disorder
Suspected cognitive impairment unclear if with behavioral disturbances- currently seems mentation clear awake alert oriented
-Continue risperidone 1 mg a.m., 2 mg p.m.
�Continue his clonazepam 1mg AM and at 2mg PM
-Continue venlafaxine 150 every morning and 75 every afternoon
�Continues lamotrigine 200 daily
�Continue olanzapine 10 mg
Chronic microcytic anemia -hemoglobin 10.6 on admission, 13.2 today. Unclear reason for rise in Hgb, perhaps due to hemoconcentration due to diuretics.
Iron panel trending towards iron deficiency anemia. He seems up-to-date with EGD and colonoscopy, follow-up with PCP and GI after discharge.
DNR/DNI -confirmed with patient and .
Dispo - med stable for d/c home today. Follow up as outpatient.
33 min spent in discharge process.
Anticipated Discharge: Today
Subjective/Interval History
-
Date of Service: November 17, 2024
Patient seen/examined, no complaints.
Objective Data
-
Labs:
Laboratory Results
11/17/24
09:07
WBC 8.7
Hgb 13.2 D
Hct 42.0
Plt Count 407 H D
Sodium 139
Potassium 3.7
Chloride 103
Carbon Dioxide 27
BUN 17
Creatinine 1.0
Glucose 123 H
Calcium 9.7
Vital Signs:
Vital Signs
Temp Pulse Resp BP Pulse Ox
98.1 F 91 17 114/65 94
11/17/24 07:47 11/17/24 11:03 11/17/24 07:47 11/17/24 11:03 11/17/24 10:25
I&O
11/16/24 11/17/24 11/18/24
06:59 06:59 06:59
Intake Total 960 / 960 1200 / 1200
Output Total 1600 / 1600 2024
Balance -640 / -640 -825 / -825
Review of Systems
-
History Source: Patient
All other systems: Reviewed and negative
--- NOTE | 2024-11-17 12:01 | W.DS.TRANS ---
DC Summary - Library Sales Consultant
-
Discharge Instructions:
Discharge Diagnosis/Procedures Acute heart failure
Diet 2 Gram Sodium,Restrict fluids to 64 oz
Activity As tolerated
Driving Restrictions No driving
Bathing Restrictions None
Specialty Instructions Weigh Daily
Instructions:
Stand-Alone Forms:
Changes to Home Medications: No
Discharge Medications:
DC Medications w/original date entered in [facility]
omeprazole 40 mg capsule,delayed release 40 mg PO DAILY Gastrointestinal Issue 05/31/10
albuterol sulfate 90 mcg/actuation aerosol inhaler (Ventolin HFA) 2 puff inhalation R Q4HPRN PRN sob/wheezing ##0 03/22/19
venlafaxine 75 mg capsule,extended release 24 hr 150 mg PO DAILY depression 03/22/19
lamotrigine 200 mg tablet 200 mg PO DAILY depression 07/01/23
albuterol sulfate 2.5 mg/3 mL (0.083 %) solution for nebulization 2.5 mg inhalation R Q6HPRN PRN sob 10/10/24
clonazepam 1 mg tablet 1 mg PO DAILY anxiety #7 tabs 10/17/24
clonazepam 1 mg tablet 2 mg (2 x 1 mg) PO QPM anxiety #7 tabs 10/17/24
olanzapine 10 mg tablet 10 mg PO HS #30 tabs 10/17/24
polyethylene glycol 3350 17 gram oral powder packet (Miralax) 8.5 g PO DAILY PRN Constipation #30 ea 10/17/24
risperidone 1 mg disintegrating tablet 1 mg PO DAILY #30 tabs 10/17/24
risperidone 2 mg tablet 2 mg PO DAILY@1500 #30 tabs 10/17/24
venlafaxine 75 mg capsule,extended release 24 hr 75 mg PO DAILY@1900 #30 caps 10/17/24
dapagliflozin propanediol 10 mg tablet (Farxiga) 10 mg PO DAILY Heart Failure #30 tabs 11/15/24
carvedilol 3.125 mg tablet 3.125 mg PO BID #60 tabs 11/17/24
furosemide 40 mg tablet 40 mg PO DAILY #30 tabs 11/17/24
sacubitril 24 mg-valsartan 26 mg tablet 1 tab PO BID #60 tabs 11/17/24
Home Medication Changes
Pending Results: No
[2024-11-17] MEDS: KLONOPIN 1 MG PO (12:11)
[2024-11-17 12:51] VITALS: BP 97/51
--- NOTE | 2024-11-17 13:09 | CM ---
Chart reviewed. Patient will d/c today
Reviewed PT and OT evaluations, both recommending home care services. [facility] accepted for services
Met w/ patient bedside, aware of d/c today. Patient stated he will be doing OP cardiac rehab as he showed CM a pamphlet. Spoke w/ patient's spouse who wasn't aware of cardiac rehab but will follow up.
IMM verbally reviewed, copy provided, copy on chart
Spoke w/ [facility] liaison, patient cannot be seen if he goes to OP rehab at the same time. [facility] can see patient if he has a few weeks until OP appt, however, if patient has appt before then, he wouldn't be able to be seen. [facility] will follow up prior to
[facility] to confirm when OP appt is scheduled for.
Plan: Home w/OP cardiac rehab. Poss [facility] depending on OP appt
--- NOTE | 2024-11-17 13:50 | HFEDUCATE ---
64 yo male admitted with acute HF . Past medical history includes HTN, hyperlipidemia, Nonobstructive CAD, known LBBB, sleep apnea, asthma, bipolar disorder, smoker and ETOH abuse. His current ejection fraction by echocardiogram is 10-15%. He lives
at home with his . He reports not following a low sodium diet and a 48oz fluid restriction per day. He has a scale at home but does weighs himself daily.
I provided HF education and discussed the usual lifestyle recommendations. I advised he continue to follow a low sodium diet of 8786-9228 mg. per day, and limit it to 500-750 mg. per meal. I advised a 48oz fluid restriction per day and discussed
ways to achieve the recommendations. I also advised he continue weighing himself daily and monitoring for any slight weight gain. I explained how to monitor for exacerbations. We discussed other alarming symptoms to watch for and when to notify his
provider. We discussed need for medications.
Recommendations:
Continue all HF recommended medications as ordered on discharge.
Limit sodium intake to <500-750 mg per meal.
Limit fluid intake to <48 oz per day.
Daily weights and contact provider for any weight gain >3lbs in one day or 5lbs in one week.
Follow up with provider as recommended.
We discussed smoking and alcohol cessation.
== END 2024-11-17 13:59 | disposition home health service (06) | DRG 291 ==
LOC: 4 WEST ACU 06:38
PROVIDERS: Emergency Medicine; ADMITTING PHYSICIAN Internal Medicine; ATTENDING PHYSICIAN Hospitalist; EMERGENCY PHYSICIAN Emergency Medicine; FAMILY PHYSICIAN Family Medicine; OTHER PHYSICIAN Internal Medicine Cardiovascular Disease
DX: I11.0 Hypertensive heart disease with heart failure (principal); I50.43 Acute on chronic combined systolic (congestive) and diastolic (congestive) heart failure; J96.01 Acute respiratory failure with hypoxia; F03.C4 Unspecified dementia, severe, with anxiety; F03.C3 Unspecified dementia, severe, with mood disturbance; J44.1 Chronic obstructive pulmonary disease with (acute) exacerbation; J45.901 Unspecified asthma with (acute) exacerbation; G47.33 Obstructive sleep apnea (adult) (pediatric); F31.9 Bipolar disorder, unspecified; K21.9 Gastro-esophageal reflux disease without esophagitis; I25.10 Atherosclerotic heart disease of native coronary artery without angina pectoris; E66.9 Obesity, unspecified; I44.7 Left bundle-branch block, unspecified; Z96.612 Presence of left artificial shoulder joint; F12.90 Cannabis use, unspecified, uncomplicated; D64.9 Anemia, unspecified; E78.00 Pure hypercholesterolemia, unspecified; F17.210 Nicotine dependence, cigarettes, uncomplicated; F90.9 Attention-deficit hyperactivity disorder, unspecified type; I27.20 Pulmonary hypertension, unspecified; Z66 Do not resuscitate; Z79.899 Other long term (current) drug therapy
CPT/HCPCS: 71046; 80048; 80053; 80061; 82728; 82805; 83540; 83550; 83735; 83880; 84443; 84484; 85025; 85027; 93005; 93306; 94640; 94760; 96374; 97163; 97166; 97530; 99285

== ENCOUNTER 2025-01-27 08:32 | Outpatient (RCR) | payer MEDICARE, SELFPAY | END 2025-01-27 23:59 | disposition home or self-care (01) | LOC: CRHB 08:32 | PROVIDERS: Internal Medicine Cardiovascular Disease; ATTENDING PHYSICIAN Internal Medicine Cardiovascular Disease; FAMILY PHYSICIAN Family Medicine | DX: I50.22 Chronic systolic (congestive) heart failure (principal) | CPT/HCPCS: 93797; 93798 ==

== ENCOUNTER 2025-02-13 09:31 | Outpatient (RCR) | payer MEDICARE, SELFPAY | END 2025-02-13 13:31 | disposition home or self-care (01) | LOC: CRHB 09:31 | PROVIDERS: ATTENDING PHYSICIAN Internal Medicine Cardiovascular Disease; FAMILY PHYSICIAN Family Medicine | DX: I50.22 Chronic systolic (congestive) heart failure (principal) | CPT/HCPCS: 93797; 93798 ==